=== PATIENT | female | born 1995 ===

== ENCOUNTER → 2020-04-02 13:21 | Outpatient (BNVA) | payer OTHER, SELFPAY | PROVIDERS: PCP Family Medicine; Referring Provider Family Medicine; Visit Provider Nurse Practitioner Family | DX: K21.9 Gastro-esophageal reflux disease without esophagitis (principal) | CPT/HCPCS: Q3014 ==

== ENCOUNTER 2020-04-30 10:47 | Outpatient (REF) | payer OTHER, SELFPAY ==
[2020-04-30 12:27] LABS: Alanine Aminotransferase 65 U/L (0-31); Albumin Level 4.5 g/dL (3.5-5.0); Alkaline Phosphatase 106 U/L (39-117); Anion Gap 12 (12-20); Aspartate Amino Transferase 35 U/L (5-31); Bilirubin Total 0.4 mg/dL (0.0-1.0); Blood Urea Nitrogen 11 mg/dL (9-16); Calcium 9.3 mg/dL (8.4-10.2); Carbon Dioxide 26 mmol/L (22-29); Chloride 106 mmol/L (96-108); Estimated Glomerular Filt Rate > 60; Glucose Random 151 mg/dL (60-115); Potassium 4.1 mmol/l (3.3-5.1); Sodium 140 mmol/L (135-145); Total Protein 7.8 g/dL (6.5-8.0)
[2020-04-30 12:37] LABS: TSH reflex Free T4 2.42 mIU/mL (0.32-4.0)
== END 2020-04-30 10:48 | disposition home or self-care (01) ==
LOC: HO.LAB 10:47
PROVIDERS: PCP Family Medicine; Visit Provider Nurse Practitioner Family
DX: K21.9 Gastro-esophageal reflux disease without esophagitis (principal); R73.03 Prediabetes
CPT/HCPCS: 80053; 84443; 99212; Q3014

== ENCOUNTER 2020-05-27 14:39 | Outpatient (REF) | payer OTHER, SELFPAY | END 2020-05-27 14:40 | disposition home or self-care (01) | LOC: HO.LNP 14:39 | PROVIDERS: Visit Provider Nurse Practitioner Family | DX: K21.9 Gastro-esophageal reflux disease without esophagitis (principal); A04.8 Other specified bacterial intestinal infections | CPT/HCPCS: 87338 ==

== ENCOUNTER → 2020-06-12 13:45 | Outpatient (BNVA) | payer OTHER, SELFPAY | PROVIDERS: PCP Family Medicine; Visit Provider Nurse Practitioner Family | DX: K21.9 Gastro-esophageal reflux disease without esophagitis (principal); A04.8 Other specified bacterial intestinal infections | CPT/HCPCS: Q3014 ==

== ENCOUNTER 2020-07-01 11:55 | Emergency (ER) | payer OTHER, SELFPAY ==
[2020-07-01 12:01] VITALS: BP 142/120; PULSE 92; RESP 20; TEMP 36.7; O2SAT 98
--- NOTE | 2020-07-01 12:13 | ED_ITS ---
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 Does report that got her flu vaccination 3 days ago unsure that is related or not. Otherwise no URI symptoms no recent new foods to drink beer last night otherwise no chest pain, dysphagia, shortness of breath. Onset (ago): hour(s) Radiation: non-radiation Severity: mild Quality: other (Feels scratchy and irritated) Pain Consistency: constant Relieving factors: none Exacerbating factors: none Treatments prior to arrival: none Related Data Home Medications Medication Instructions Recorded Confirmed bictegravir 50 mg-emtricitabine 1 tab PO DAILY 04/02/20 06/12/20 200 mg-tenofovir alafenam 25 mg tablet clonidine HCl 0.1 mg tablet 0.2 mg PO BEDTIME tab 04/02/20 06/12/20 fluoxetine 20 mg capsule 20 mg PO DAILY 04/02/20 06/12/20 hydroxyzine HCl 25 mg tablet 25 mg PO BEDTIME 04/02/20 06/12/20 spironolactone 50 mg tablet 50 mg PO DAILY 04/02/20 06/12/20 Previous Rx's Medication Instructions Recorded omeprazole 20 mg capsule,delayed 20 mg PO BID #60 cap 04/30/20 release sucralfate 1 gram tablet 1 g PO DAILY #30 tab 04/30/20 metronidazole 500 mg tablet 1,000 mg PO BID 14 Days #56 tab 06/03/20 ondansetron HCl 4 mg tablet 4 mg PO BID-TID PRN 14 Days #60 tab 06/03/20 tetracycline 500 mg capsule 500 mg PO Q12H 14 Days #28 cap 06/03/20 azithromycin [Zithromax Z-Murphy] 250 mg PO DAILY 5 Days #6 tab 07/01/20 prednisone 40 mg PO DAILY 5 Days #10 tab 07/01/20 Allergies Allergy/AdvReac Type Severity Reaction Status Date / Time No Known Allergies Allergy Verified 07/01/20 12:10 Review of Systems Review of Systems: Constitutional: No Weight loss, No Fever, No Chills, No Night Sweats, No Fatigue, No Malaise ENT/Mouth: No Hearing loss, No Ear Pain, No Nasal Congestion, No Sinus Pain, No Hoarseness, + sore throat, No Rhinorrhea, No Swallowing Difficulty Eyes: No Eye Pain, No Swelling, No Redness, No Foreign Body, No Discharge, No Vision Changes Cardiovascular: No Chest Pain, No SOB, No Dyspnea on Exertion, No Orthopnea, No Edema, No Palpitations Respiratory: No Cough, No Sputum, No Wheezing, No Smoke Exposure, No Dyspnea Gastrointestinal: No Nausea, No Vomiting, No Diarrhea, No Constipation, No abdominal Pain, No Hematochezia, No Melena Genitourinary: no irregular bleeding, No Dysuria, No Urinary Frequency, No Hematuria, No Urinary Incontinence, No Urgency, No Flank Pain, No Urinary Flow Changes, No Hesitancy Musculoskeletal: No joint pain, No Myalgias, No Joint Swelling Skin: No Skin Lesions, No rash Neuro: No Weakness, No Numbness, No Paresthesias, No Loss of Consciousness, No Dizziness, No Headache Psych: No Social Issues Heme/Lymph: No Bruising, No Bleeding,No Lymphadenopathy Endocrine: No Polyuria, No Polydipsia, No Temperature Intolerance Yes all other systems are reviewed and are negative [facility] Past Medical History Medical History Anxiety GERD (gastroesophageal reflux disease) Ulcer Surgical History Hx of appendectomy Family History Family History (Updated 06/12/20 @ 13:48 by Christina Bender) Mother Cancer Father Cancer Maternal Aunt Cancer Maternal Uncle Cancer Social History Social History (Updated 06/12/20 @ 13:50 by Christina Bender) Household Members: Other Alcohol intake: current Alcohol intake frequency: a few times a week Alcohol type: beer Smoking Status: Light tobacco smoker Smoked in Last 30 Days: Yes Use of substances other than those prescribed or required for medical reasons: No Substance Use Type: Marijuana Any prior treatment program specific to substance use: No Advance Directives: No Advance Directives Information Provided: No Current occupational status: student Physical Exam Vital Signs: Vital Signs: Last Vital Signs Temp 98.0 F 07/01/20 12:01 Pulse 89 07/01/20 12:23 Resp 18 07/01/20 12:23 BP 126/80 07/01/20 12:23 Pulse Ox 98 07/01/20 12:23 Body Mass Index 0.0 Reviewed Const: Other: From patient sitting up in no acute distress upon arrival Gen eral: cooperative and healthy appearing; No acute distress or intoxicated appearing Nutritional Appearance: average body habitus Orientation/consciousness: patient oriented x3 HENMT: Head: Yes normal to inspection Ears: hearing grossly normal bilaterally General nose exam: Normal external nose present Face and sinus: Yes normal facial exam, No sinuses nontender and Yes face symmetric Mouth: lip normal, tongue normal, Normal salivary glands and ducts present, breath no malodorous, no muffled voice, normal oral mucosae, no trismus and other Teeth and gingiva: dentition normal Throat: Yes posterior oropharynx normal, Yes tonsils normal, Yes uvula midline (Slightly edematous and erythematous), No abnormal tonsil and No peritonsillar mass Eyes: General: appearance normal, both eyes and all related structures Visual Peace: normal visual peace by confrontation Neck: Neck: Yes normal visual inspection, No positive Brudzinski's sign, No positive Kernig's sign and No tender Thyroid: Thyroid normal Chest: Chest palpation & inspection: normal inspection of the chest Resp: Effort & Inspection: normal respiratory effort Auscultation: clear to auscultation bilaterally Cardio: Jugular venous distension: no JVD GI: Inspection: Yes normal to inspection Percussion: Yes normal to percussion Auscultation: normal bowel sounds : General: Yes no CVA tenderness Back/Spine/Pelvis: Back: no CVA tenderness Skin: General skin exam: no rashes or lesions noted Neuro: General: patient oriented x3 Extrem: General: Yes normal to inspection Course Course Course Narrative: Slightly improved after Benadryl and Solu-Medrol. No airway compromise. Speaking in clear sentences. No difficulty with swallowing. Strep as well as flu RSV and COVID negative. Given the erythema and swelling inflammatory versus infectious. Will start on Z-Murphy and prednisone with clear return follow-up instructions. Verbalized understanding. Comfortable plan stable for discharge. Medical Decision Making Lab Data Labs: Lab Results 07/01/20 Range/Units 12:32 Coronavirus (PCR) NEGATIVE (Negative) Influenza Type A (PCR) NEGATIVE (Negative) Influenza Type B (PCR) NEGATIVE (Negative) RSV RNA Qual (PCR) NEGATIVE (Negative) Discharge Plan Discharge Clinical Impression: Uvulitis Patient Disposition: Home, Self-Care Instructions: Uvulitis (ED) Additional Instructions: Uvulitis Uvulitis is inflammation of the uvula. This is the small tongue-shaped tissue that hangs from the top of the back part of the mouth. Uvulitis is usually associated with inflammation of other mouth parts, such as the palate, tonsils, or throat (pharynx). Causes Uvulitis is mainly caused by an infection with streptococcus bacteria. Other causes are: An injury to the back of the throat An allergic reaction from pollen, dust, pet dander, or foods such as peanuts or eggs Inhaling or swallowing certain chemicals Smoking Injury can occur due to: Endoscopy - test that involves inserting a tube through the mouth into the esophagus to view the lining of the esophagus and stomach Surgery such as tonsil removal Damage due to acid reflux Your symptoms are most consistent with either infectious or allergic reaction as a cause. For this reason will start you on antibiotics. Will start on steroid to help with inflammation. Please return if any concerns or worsening symptoms including scratchy throat or any difficulty swallowing, difficulty breathing, shortness of breath, chest pain. Otherwise follow-up with her primary care doctor in the next 3-5 days Thank you Prescriptions: New azithromycin [Zithromax Z-Murphy] 250 mg tablet 250 mg PO DAILY 5 Days Qty: 6 RF: 0 prednisone 20 mg tablet 40 mg PO DAILY 5 Days Qty: 10 RF: 0 No Action tetracycline 500 mg capsule 500 mg PO Q12H 14 Days Qty: 28 RF: 0 metronidazole [Flagyl] 500 mg tablet 1,000 mg PO BID 14 Days Qty: 56 RF: 0 ondansetron HCl [Zofran] 4 mg tablet 4 mg PO BID-TID PRN (Reason: nausea and vomiting) 14 Days Qty: 60 RF: 0 omeprazole 20 mg capsule,delayed release(DR/EC) 20 mg PO BID Qty: 60 RF: 3 sucralfate 1 gram tablet 1 g PO DAILY Qty: 30 RF: 3 Biktarvy 50-200-25 mg tablet 1 tab PO DAILY RF: 0 clonidine HCl 0.1 mg tablet 0.2 mg PO BEDTIME RF: 0 spironolactone 50 mg tablet 50 mg PO DAILY RF: 0 hydroxyzine HCl 25 mg tablet 25 mg PO BEDTIME RF: 0 fluoxetine 20 mg capsule 20 mg PO DAILY RF: 0 Referrals: Yashira Mojica MD [Primary Care Provider] - 3 days Stand Alone Forms: Work/School Release Interventions: ED Discharge Assessment Last Done: 07/01/20 14:28 Discharge Date/Time: 07/01/20 14:35
[2020-07-01 12:23] VITALS: BP 126/80; PULSE 89; RESP 18; O2SAT 98
[2020-07-01] MEDS: methylPREDNISolone Sod Succ/PF 125 MG/2 ML VIAL IVPUSH (12:33)
[2020-07-01] MEDS: diphenhydrAMINE HCL 50 MG/ML VIAL 25 MG IVPUSH (12:33)
[2020-07-01] MEDS: 0.9 % Sodium Chloride 1,000 ML 999 ML IV (12:33)
[2020-07-01 13:36] LABS: Influenza A PCR NEGATIVE (Negative); Influenza B PCR NEGATIVE (Negative); Resp Syncy Virus RNA Qual PCR NEGATIVE (Negative); SARS COV2 PCR INHOUSE NEGATIVE (Negative)
== END 2020-07-01 14:35 | disposition home or self-care (01) ==
PROVIDERS: Nurse Practitioner Primary Care; Emergency Provider Emergency Medicine; PCP Family Medicine
DX: K12.2 Cellulitis and abscess of mouth (principal); Z20.822 Contact with and (suspected) exposure to COVID-19; K21.9 Gastro-esophageal reflux disease without esophagitis; F17.210 Nicotine dependence, cigarettes, uncomplicated; F12.90 Cannabis use, unspecified, uncomplicated
CPT/HCPCS: 0241U; 36415; 87071; 87147; 87880; 96361; 96374; 96375; 99284; J1200; J2930

== ENCOUNTER 2020-10-01 11:22 | Outpatient (REF) | payer OTHER, SELFPAY ==
--- NOTE | 2020-10-01 11:31 | ECG_ITS ---
Test Reason : PREPROC EXAM Blood Pressure : / mmHG Vent. Rate : 082 BPM Atrial Rate : 082 BPM P-R Int : 156 ms QRS Dur : 088 ms QT Int : 364 ms P-R-T Axes : 035 007 065 degrees QTc Int : 425 ms Normal sinus rhythm Nonspecific T wave abnormality Abnormal ECG No previous ECGs available Referred By: Jailene Castro Electronically Signed By:Tobin Miller
[2020-10-01 12:03] LABS: Hematocrit 46.7 % (37-47); Hemoglobin 15.7 g/dl (12.0-16.0); Mean Corpuscular HGB Conc 33.6 g/dl (31.0-35.0); Mean Corpuscular Hemoglobin 29.5 pg (27.0-33.0); Mean Corpuscular Volume 87.6 fL (80-98); Mean Platelet Volume 10.7 fL (9.4-12.3); Platelet Count 266 X10*3/uL (160-400); Red Blood Count 5.33 X10*6/uL (4.20-5.50); White Blood Count 8.2 X10*3/uL (4.8-10.8)
[2020-10-01 12:05] LABS: Prothrombin Time 12.3 SEC (10.8-13.0)
[2020-10-01 12:08] LABS: Partial Thromboplastin Time 37.3 SEC (24.1-38.0)
[2020-10-01 12:22] LABS: Anion Gap 13 (12-20); Blood Urea Nitrogen 8 mg/dL (9-16); Carbon Dioxide 24 mmol/L (22-29); Chloride 105 mmol/L (96-108); Estimated Glomerular Filt Rate > 60; Glucose Random 139 mg/dL (60-115); Potassium 4.2 mmol/L (3.3-5.1); Sodium 138 mmol/L (135-145)
== END 2020-10-01 11:23 | disposition home or self-care (01) ==
LOC: HO.LAB 11:22
PROVIDERS: Absent Provider Family Medicine; PCP Family Medicine; Visit Provider Family Medicine
DX: Z01.818 Encounter for other preprocedural examination (principal)
CPT/HCPCS: 36415; 80048; 85027; 85610; 85730; 93005

== ENCOUNTER 2021-04-29 09:59 | Emergency (ER) | payer OTHER, SELFPAY ==
[2021-04-29 11:40] VITALS: BP 132/69; PULSE 85; RESP 18; TEMP 36.4; O2SAT 99; BMI 34.1
--- NOTE | 2021-04-29 13:54 | ED_ITS ---
HPI - General Adult General Chief complaint: Allergic Reaction Stated complaint: allergic reaction Time Seen by Provider: 04/29/21 13:52 History of Present Illness HPI narrative: Patient complains of itchy rash over his body for 2 days, not sure what caused it, he has had similar symptoms in the past that resolved on their own, no difficulty breathing no throat swelling no difficulty swallowing Related Data Home Medications Medication Instructions Recorded Confirmed bictegravir 50 mg-emtricitabine 1 tab PO DAILY 04/02/20 06/12/20 200 mg-tenofovir alafenam 25 mg tablet (Biktarvy) clonidine HCl 0.1 mg tablet 0.2 mg PO BEDTIME tab 04/02/20 06/12/20 fluoxetine 20 mg capsule 20 mg PO DAILY 04/02/20 06/12/20 hydroxyzine HCl 25 mg tablet 25 mg PO BEDTIME 04/02/20 06/12/20 spironolactone 50 mg tablet 50 mg PO DAILY 04/02/20 06/12/20 Previous Rx's Medication Instructions Recorded omeprazole 20 mg capsule,delayed 20 mg PO BID #60 cap 04/30/20 release sucralfate 1 gram tablet 1 g PO DAILY #30 tab 04/30/20 metronidazole 500 mg tablet 1,000 mg PO BID 14 Days #56 tab 06/03/20 (Flagyl) ondansetron HCl 4 mg tablet 4 mg PO BID-TID PRN 14 Days #60 tab 06/03/20 (Zofran) tetracycline 500 mg capsule 500 mg PO Q12H 14 Days #28 cap 06/03/20 azithromycin 250 mg tablet 250 mg PO DAILY 5 Days #6 tab 07/01/20 (Zithromax Z-Murphy) prednisone 20 mg tablet 40 mg PO DAILY 5 Days #10 tab 07/01/20 cetirizine 10 mg tablet 10 mg PO DAILY PRN #14 tab 04/29/21 famotidine 20 mg tablet (Pepcid) 20 mg PO DAILY #7 tab 04/29/21 hydroxyzine HCl 25 mg tablet 25 mg PO BEDTIME PRN #10 tab 04/29/21 prednisone 20 mg tablet 60 mg PO DAILY 4 Days #12 tab 04/29/21 Allergies Allergy/AdvReac Type Severity Reaction Status Date / Time No Known Allergies Allergy Verified 07/01/20 12:10 Review of Systems Review of Systems: Positive for rash Negatives are no fever no chills no dizziness no headache no neck pain no sore throat no difficulty breathing or swallowing no shortness of breath no chest pain no joint swelling or pain Yes all other systems are reviewed and are negative [facility] Past Medical History Source: nursing notes reviewed Medical History Anxiety GERD (gastroesophageal reflux disease) Ulcer Surgical History Hx of appendectomy Family History Family History (Updated 06/12/20 @ 13:48 by CAYDEN Flores) Mother Cancer Father Cancer Maternal Aunt Cancer Maternal Uncle Cancer Social History Social History (Updated 06/12/20 @ 13:50 by CAYDEN Flores) Household Members: Other 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 Alcohol intake: current Alcohol intake frequency: a few times a week Alcohol type: beer Substance Use Type: Marijuana Advance Directives: No Advance Directives Information Provided: Yes Current occupational status: student Physical Exam Vital Signs: Vital Signs: Last Vital Signs Temp 97.6 F 04/29/21 11:40 Pulse 85 04/29/21 11:40 Resp 18 04/29/21 11:40 BP 132/69 04/29/21 11:40 Pulse Ox 99 04/29/21 11:40 BMI result Body Mass Index 34.1 General appearance no acute distress The eyes no redness or discharge The sinuses are not congested The pharynx is clear with no swelling no redness or exudate Neck is supple Chest clear to auscultation bilateral The skin has a diffuse urticarial rash Extremities full range of motion x4 no joint pain or swelling Course Course Course Narrative: Patient with very itchy hives but no other complaint is treated for hives and discharged Discharge Plan Discharge Clinical Impression: Urticaria Patient Disposition: Home, Self-Care Additional Instructions: We are treating with steroids and antihistamines which usually relieve symptoms within 24 hours Follow with primary doctor Return any time any worse condition or any concerns Prescriptions: New cetirizine 10 mg tablet 10 mg PO DAILY PRN (Reason: Itch and rash) Qty: 14 RF: 0 prednisone 20 mg tablet 60 mg PO DAILY 4 Days Qty: 12 RF: 0 famotidine [Pepcid] 20 mg tablet 20 mg PO DAILY Qty: 7 RF: 0 hydroxyzine HCl 25 mg tablet 25 mg PO BEDTIME PRN (Reason: itching) Qty: 10 RF: 0 No Action tetracycline 500 mg capsule 500 mg PO Q12H 14 Days Qty: 28 RF: 0 metronidazole [Flagyl] 500 mg tablet 1,000 mg PO BID 14 Days Qty: 56 RF: 0 ondansetron HCl [Zofran] 4 mg tablet 4 mg PO BID-TID PRN (Reason: nausea and vomiting) 14 Days Qty: 60 RF: 0 azithromycin [Zithromax Z-Murphy] 250 mg tablet 250 mg PO DAILY 5 Days Qty: 6 RF: 0 prednisone 20 mg tablet 40 mg PO DAILY 5 Days Qty: 10 RF: 0 omeprazole 20 mg capsule,delayed release(DR/EC) 20 mg PO BID Qty: 60 RF: 3 sucralfate 1 gram tablet 1 g PO DAILY Qty: 30 RF: 3 Biktarvy 50-200-25 mg tablet 1 tab PO DAILY RF: 0 clonidine HCl 0.1 mg tablet 0.2 mg PO BEDTIME RF: 0 spironolactone 50 mg tablet 50 mg PO DAILY RF: 0 hydroxyzine HCl 25 mg tablet 25 mg PO BEDTIME RF: 0 fluoxetine 20 mg capsule 20 mg PO DAILY RF: 0 Interventions: ED Discharge Assessment Last Done: 04/29/21 14:42 Discharge Date/Time: 04/29/21 14:43
== END 2021-04-29 14:43 | disposition home or self-care (01) ==
PROVIDERS: Emergency Provider Emergency Medicine; PCP Family Medicine
DX: L50.9 Urticaria, unspecified (principal)
CPT/HCPCS: 99283

== ENCOUNTER 2021-05-29 19:43 | Emergency (ER) | payer MEDICAID, OTHER, SELFPAY ==
--- NOTE | 2021-05-29 | ECG_ITS ---
Test Reason : PALPITATIONS Blood Pressure : / mmHG Vent. Rate : 121 BPM Atrial Rate : 121 BPM P-R Int : 164 ms QRS Dur : 088 ms QT Int : 314 ms P-R-T Axes : 055 023 052 degrees QTc Int : 445 ms Sinus tachycardia Otherwise normal ECG When compared with ECG of 01-OCT-2020 11:39, Nonspecific T wave abnormality no longer evident in Lateral leads Referred By: Generic ED Physician Electronically Signed By:DIEGO GALLARDO MD
[2021-05-29 19:50] VITALS: BP 155/98; PULSE 132; RESP 20; TEMP 36.4; O2SAT 100; BMI 28.1
[2021-05-29 19:59] VITALS: PULSE 112
--- NOTE | 2021-05-29 23:41 | ED_ITS ---
HPI - Psych General Chief Complaint: Arrhythmia/Palpitations Stated Complaint: chest pain ,shaking,fatigue Time Seen by Provider: 05/29/21 22:36 Source: patient Mode of arrival: ambulatory Limitations: no limitations History of Present Illness complaint: other (was given crystal meth by acquaintance when she thought it was hookah) Onset (ago): hour(s) (6pm) Duration: other (it is improving) History of same: No (has never done any drugs uses medical marijuana at night to sleep) Relieving factors: other (time) Exacerbating factors: none Context: other (went to a [facility] noted people were smoking marijuana and a hookah she initially declined the hookah but was offered it again, she smoked one time and immediately felt off she was then told it was crystal meth) Associated psychiatric symptoms: none Associated symptoms: other (shakiness, tachycardia, palpitations) Treatments prior to arrival: none Related Data Home Medications Medication Instructions Recorded Confirmed bictegravir 50 mg-emtricitabine 1 tab PO DAILY 04/02/20 06/12/20 200 mg-tenofovir alafenam 25 mg tablet (Biktarvy) clonidine HCl 0.1 mg tablet 0.2 mg PO BEDTIME tab 04/02/20 06/12/20 fluoxetine 20 mg capsule 20 mg PO DAILY 04/02/20 06/12/20 hydroxyzine HCl 25 mg tablet 25 mg PO BEDTIME 04/02/20 06/12/20 spironolactone 50 mg tablet 50 mg PO DAILY 04/02/20 06/12/20 Previous Rx's Medication Instructions Recorded omeprazole 20 mg capsule,delayed 20 mg PO BID #60 cap 04/30/20 release sucralfate 1 gram tablet 1 g PO DAILY #30 tab 04/30/20 metronidazole 500 mg tablet 1,000 mg PO BID 14 Days #56 tab 06/03/20 (Flagyl) ondansetron HCl 4 mg tablet 4 mg PO BID-TID PRN 14 Days #60 tab 06/03/20 (Zofran) tetracycline 500 mg capsule 500 mg PO Q12H 14 Days #28 cap 06/03/20 azithromycin 250 mg tablet 250 mg PO DAILY 5 Days #6 tab 07/01/20 (Zithromax Z-Murphy) prednisone 20 mg tablet 40 mg PO DAILY 5 Days #10 tab 07/01/20 cetirizine 10 mg tablet 10 mg PO DAILY PRN #14 tab 04/29/21 famotidine 20 mg tablet (Pepcid) 20 mg PO DAILY #7 tab 04/29/21 hydroxyzine HCl 25 mg tablet 25 mg PO BEDTIME PRN #10 tab 04/29/21 prednisone 20 mg tablet 60 mg PO DAILY 4 Days #12 tab 04/29/21 Allergies Allergy/AdvReac Type Severity Reaction Status Date / Time No Known Allergies Allergy Verified 05/29/21 19:55 Review of Systems Verdana 4l Review of Systems: Verdana 4d Verdana 4d Constitutional : No Fever, No Chills ENT/Mouth : No sore throat, No Rhinorrhea, No Swallowing Difficulty Eyes: No Eye Pain, No Swelling, No Redness Cardiovascular : No Chest Pain, no SOB, No Orthopnea, no Edema, pos palpitations RespiratoryRespiratory : No Cough, No Sputum, No Wheezing, no dyspnea Gastrointestinal : No Nausea, No Vomiting, No Diarrhea, No abdominal Pain, No Hematochezia, No Melena Genitourinary : No Dysuria, No Urinary Frequency, No Hematuria Musculoskeletal : No joint pain, No Myalgias Skin : No Skin Lesions, No rash Neuro : No Weakness, No Numbness, No Dizziness, No Headache Psych : pos Anxiety/Panic, No Depression Heme/Lymph: No Bruising, No Lymphadenopathy Endocrine : No Polyuria, No Polydipsia All other systems reviewed and are negative [facility] Past Medical History 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 Oriented X3. No acute distress. Eyes: Pupils equal, round and reactive to light. ENT: Pharynx normal. Neck: Normal inspection. Neck supple. CVS: tachycardic heart rate and rhythm. Pulses normal. Respiratory: No respiratory distress. Breath sounds normal. Abdomen: Soft and nontender. Skin: Skin warm and dry. Normal skin color. Normal skin turgor. Extremities: No lower extremity edema. No calf ttp Neuro: Oriented X 3. No motor deficit. No sensory deficit. Course Course Course Narrative: VS improved feels better stable for DC MDM - Psych MDM Narrative Medical decision making narrative: 26 yo female with hx of GERD, anxiety was at a [facility] and asked to smoke hookah and believed it was marijuana she immediately felt off then asked what it was and was told it was crystal meth. She has no chest pain at this time. But does have tachycardia no diaphoresis or signs of hyperreflexia. Will obtain labs, EKG, hydrate and give IV ativan. GCS 15 and calm / appropriate. Lab Data Result diagrams: 05/30/21 00:23 05/30/21 00:23 Labs: Lab Results 05/30/21 05/30/21 Range/Units 00:23 00:23 WBC 10.7 (4.8-10.8) X10*3/uL RBC 4.98 (4.20-5.50) X10*6/uL Hgb 14.7 (12.0-16.0) g/dl Hct 43.1 (37.0-47.0) % MCV 86.5 (80.0-98.0) fL MCH 29.5 (27.0-33.0) pg MCHC 34.1 (31.0-35.0) g/dl RDW 13.2 (11.0-16.0) % Plt Count 273 (160-400) X10*3/uL MPV 9.7 (9.4-12.3) fL Immature Gran % (Auto) 0.3 (0.0-0.4) % Neut % (Auto) 61.5 (45-73) % Lymph % (Auto) 31.3 (20-40) % Grainger % (Auto) 6.4 (2-11) % Eos % (Auto) 0.3 (0-4) % Baso % (Auto) 0.2 (0-2) % Lymph # (Auto) 3.4 (1.2-4.9) X10*3/uL Grainger # (Auto) 0.7 (0.1-1.2) X10*3/uL Eos # (Auto) 0.0 (0.0-0.4) X10*3/uL Baso # (Auto) 0.0 (0.0-0.2) X10*3/uL Abs Immat Gran (auto) 0.03 (0.00-0.03) X10*3/uL Absolute Neuts (auto) 6.6 (2.0-8.3) x10*3/uL Absolute Nucleated RBC 0.000 (0.0-0.012) X10*3/uL Nucleated RBC % (auto) 0.0 (0.0-0.2) /100WBC Sodium 140 (135-145) mmol/L Potassium 3.9 (3.3-5.1) mmol/L Chloride 106 (96-108) mmol/L Carbon Dioxide 23 (22-29) mmol/L Anion Gap 15 (12-20) BUN 12 (9-16) mg/dL Creatinine 1.16 (0.5-1.4) mg/dL Estim Creat Clear Calc 80.8 Estimated GFR 56 Random Glucose 116 H (60-115) mg/dL Calcium 10.5 H (8.4-10.2) mg/dL Magnesium 2.3 (1.6-2.6) mg/dL ECG Data Attestation: I personally reviewed and interpreted this ECG as follows: ECG interpretation date: 05/30/21 ECG interpretation time: 00:25 Interpretation: Rate: 121 Rhythm: sinus tachycardia Plover: normal Normal P waves. Normal RESHMA. RBBB ST T wave : normal no XUAN qTC: normal prior studies: no acute ischemia The study has been interpreted contemporaneously by me. . Discharge Plan Discharge Clinical Impression: Acute drug intoxication Patient Disposition: Home, Self-Care Instructions: Adult Overdose (ED) Additional Instructions: return to ED for any worsening symptoms or concerns Prescriptions: No Action tetracycline 500 mg capsule 500 mg PO Q12H 14 Days Qty: 28 0RF metronidazole [Flagyl] 500 mg tablet 1,000 mg PO BID 14 Days Qty: 56 0RF ondansetron HCl [Zofran] 4 mg tablet 4 mg PO BID-TID PRN (Reason: nausea and vomiting) 14 Days Qty: 60 0RF azithromycin [Zithromax Z-Murphy] 250 mg tablet 250 mg PO DAILY 5 Days Qty: 6 0RF prednisone 20 mg tablet 40 mg PO DAILY 5 Days Qty: 10 0RF cetirizine 10 mg tablet 10 mg PO DAILY PRN (Reason: Itch and rash) Qty: 14 0RF prednisone 20 mg tablet 60 mg PO DAILY 4 Days Qty: 12 0RF famotidine [Pepcid] 20 mg tablet 20 mg PO DAILY Qty: 7 0RF hydroxyzine HCl 25 mg tablet 25 mg PO BEDTIME PRN (Reason: itching) Qty: 10 0RF omeprazole 20 mg capsule,delayed release(DR/EC) 20 mg PO BID Qty: 60 3RF sucralfate 1 gram tablet 1 g PO DAILY Qty: 30 3RF Rx Instructions: Please take daily at noon Biktarvy 50-200-25 mg tablet 1 tab PO DAILY 0RF clonidine HCl 0.1 mg tablet 0.2 mg PO BEDTIME 0RF spironolactone 50 mg tablet 50 mg PO DAILY 0RF hydroxyzine HCl 25 mg tablet 25 mg PO BEDTIME 0RF fluoxetine 20 mg capsule 20 mg PO DAILY 0RF Print Language: French
[2021-05-30] MEDS: 0.9 % Sodium Chloride 1,000 ML 999 ML IVCONT (00:24)
[2021-05-30] MEDS: LORazepam 2 MG/ML VIAL 1 MG IVPUSH (00:26)
[2021-05-30 00:28] LABS: MANUAL DIFF FLAG NO
[2021-05-30 00:30] LABS: Basophils Percent Auto 0.2 % (0-2); Eosinophils Percent Auto 0.3 % (0-4); Hematocrit 43.1 % (37.0-47.0); Hemoglobin 14.7 g/dl (12.0-16.0); Imm Gran Abs Auto 0.03 X10*3/uL (0.00-0.03); Imm Gran Pct Auto 0.3 % (0.0-0.4); Lymphocytes Absolute Auto 3.4 X10*3/uL (1.2-4.9); Lymphocytes Percent Auto 31.3 % (20-40); Mean Corpuscular HGB Conc 34.1 g/dl (31.0-35.0); Mean Corpuscular Hemoglobin 29.5 pg (27.0-33.0); Mean Corpuscular Volume 86.5 fL (80.0-98.0); Mean Platelet Volume 9.7 fL (9.4-12.3); Monocytes Absolute Auto 0.7 X10*3/uL (0.1-1.2); Monocytes Percent Auto 6.4 % (2-11); Neutrophils Absolute Auto 6.6 x10*3/uL (2.0-8.3); Neutrophils Percent Auto 61.5 % (45-73); Platelet Count 273 X10*3/uL (160-400); Red Blood Count 4.98 X10*6/uL (4.20-5.50); Red Cell Distribution Width 13.2 % (11.0-16.0); White Blood Count 10.7 X10*3/uL (4.8-10.8)
[2021-05-30 00:31] VITALS: BP 151/88; PULSE 119; RESP 24; TEMP 36.6; O2SAT 100
[2021-05-30 00:49] LABS: Anion Gap 15 (12-20); Blood Urea Nitrogen 12 mg/dL (9-16); Calcium 10.5 mg/dL (8.4-10.2); Carbon Dioxide 23 mmol/L (22-29); Chloride 106 mmol/L (96-108); Creatinine Clr Calc Pharmacy 80.8; Estimated Glomerular Filt Rate 56; Glucose Random 116 mg/dL (60-115); Magnesium 2.3 mg/dL (1.6-2.6); Potassium 3.9 mmol/L (3.3-5.1); Sodium 140 mmol/L (135-145)
[2021-05-30 02:09] VITALS: PULSE 105; RESP 22; O2SAT 100
== END 2021-05-30 02:55 | disposition home or self-care (01) ==
PROVIDERS: Emergency Provider Emergency Medicine; PCP Family Medicine
DX: F14.129 Cocaine abuse with intoxication, unspecified (principal); I49.9 Cardiac arrhythmia, unspecified; R00.2 Palpitations; F12.90 Cannabis use, unspecified, uncomplicated; R40.2410 Glasgow coma scale score 13-15, unspecified time; Z71.51 Drug abuse counseling and surveillance of drug abuser; Z79.899 Other long term (current) drug therapy
CPT/HCPCS: 36415; 80048; 83735; 85025; 93005; 96361; 96374; 99284; J2060

== ENCOUNTER 2021-05-30 09:06 | Emergency (ER) | payer MEDICAID, OTHER, SELFPAY ==
--- NOTE | ~2021-05-30 | XR_ITS ---
EXAMINATION: XR CHEST CLINICAL INFORMATION: Chest pain COMPARISON: None TECHNIQUE: Frontal view of the chest was obtained. FINDINGS: Cardiac silhouette is normal in size. The lungs are mildly hypoinflated with mild asymmetric elevation of the right hemidiaphragm. There is no lobar consolidation. No pleural effusion or pneumothorax. No gross osseous abnormality. XR/XR chest 1V IMPRESSION: Hypoinflated lungs without acute pulmonary pathology.
[2021-05-30 09:09] VITALS: BP 150/90; PULSE 96; O2SAT 98
[2021-05-30 09:20] VITALS: BP 147/91; PULSE 98; RESP 18; O2SAT 100; BMI 34.4
--- NOTE | 2021-05-30 09:34 | ED_ITS ---
HPI - General Adult General Chief complaint: ETOH/Substance Use Stated complaint: substance use Time Seen by Provider: 05/30/21 09:32 Source: patient, RN notes reviewed and paraprofessional interpreter Mode of arrival: ambulatory Limitations: language barrier (paraprofessional interpreter used) History of Present Illness HPI narrative: Pt complaining of not feeling well after using marijauna yesterday. Pt thinks that there was crystal meth as well. Pt seen last night for same and discharge a couple of hours ago. Pt denies any other use of drugs, etoh since visit yesterday. Pt said she felt better when she was discharged this morning, but is now felling shaky, nauseas with some chestpain, also complaining of numbness in both hands which started sometime this morning. Pt quite anxious. Radiation: non-radiation Severity: moderate Treatments prior to arrival: none Related Data Home Medications Medication Instructions Recorded Confirmed bictegravir 50 mg-emtricitabine 1 tab PO DAILY 04/02/20 06/12/20 200 mg-tenofovir alafenam 25 mg tablet (Biktarvy) clonidine HCl 0.1 mg tablet 0.2 mg PO BEDTIME tab 04/02/20 06/12/20 fluoxetine 20 mg capsule 20 mg PO DAILY 04/02/20 06/12/20 hydroxyzine HCl 25 mg tablet 25 mg PO BEDTIME 04/02/20 06/12/20 spironolactone 50 mg tablet 50 mg PO DAILY 04/02/20 06/12/20 Previous Rx's Medication Instructions Recorded omeprazole 20 mg capsule,delayed 20 mg PO BID #60 cap 04/30/20 release sucralfate 1 gram tablet 1 g PO DAILY #30 tab 04/30/20 metronidazole 500 mg tablet 1,000 mg PO BID 14 Days #56 tab 06/03/20 (Flagyl) ondansetron HCl 4 mg tablet 4 mg PO BID-TID PRN 14 Days #60 tab 06/03/20 (Zofran) tetracycline 500 mg capsule 500 mg PO Q12H 14 Days #28 cap 06/03/20 azithromycin 250 mg tablet 250 mg PO DAILY 5 Days #6 tab 07/01/20 (Zithromax Z-Murphy) prednisone 20 mg tablet 40 mg PO DAILY 5 Days #10 tab 07/01/20 cetirizine 10 mg tablet 10 mg PO DAILY PRN #14 tab 04/29/21 famotidine 20 mg tablet (Pepcid) 20 mg PO DAILY #7 tab 04/29/21 hydroxyzine HCl 25 mg tablet 25 mg PO BEDTIME PRN #10 tab 04/29/21 prednisone 20 mg tablet 60 mg PO DAILY 4 Days #12 tab 04/29/21 lorazepam 1 mg tablet (Ativan) 1 mg PO BID PRN #4 tab 05/30/21 Allergies Allergy/AdvReac Type Severity Reaction Status Date / Time No Known Allergies Allergy Verified 05/29/21 19:55 Review of Systems Verdana 4l Review of Systems: Verdana 4d Verdana 4d Constitutional : No trauma, No Weight loss, No Fever, No Chills, ENT/Mouth : No Hearing loss, No Ear Pain, No Nasal Congestion, No Sinus Pain, No Hoarseness, No sore throat, No Rhinorrhea, No Swallowing Difficulty Cardiovascular : mild ChestChest Pain, No SOB Respiratory : No Cough, No Dyspnea Gastrointestinal : + Nausea, No Vomiting, No Diarrhea, No abdominal Pain, No Hematochezia, No Melena Genitourinary : No Dysuria, No Urinary Frequency, No Hematuria, No Urinary or Bowel Incontinence/retention? Musculoskeletal : no Back pain, No neck pain, No joint stiffness, No joint swelling Skin : No Skin Lesions, No rash or signs of infection Neuro : No Weakness, No radiation, mild Numbness in bilat hands, No Paresthesias, No headache, no loss of bowel or bladder incontinence, No Focal weakness Denies drug or etoh since last ED visit Psych : No SI/HI/thoughts of self injury Yes all other systems are reviewed and are negative [facility] Past Medical History Attestation statement: The following information was validated with the patient. 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 Alcohol intake: current Alcohol intake frequency: a few times a week Alcohol type: beer Substance Use Type: Marijuana Advance Directives: No Advance Directives Information Provided: No Current occupational status: student Physical Exam Verdana 4l Vital Signs: Verdana 4d Verdana 4d Vital Signs: Verdana 4d Verdana 4Bd Last Vital Signs Verdana 4d Slab Puller New 4d Tu New 4d Temp 98.2 F 05/30/21 11:55 Slab Puller New 4d Pulse 86 05/30/21 11:55 Slab Puller New 4d Resp 15 05/30/21 11:55 BP 136/81 05/30/21 11:55 Pulse Ox 100 05/30/21 11:55 BMI result Body Mass Index 34.4 vital signs have been reviewed as normal and appeared to be correct.? ? Heart rate normal.? Respiration rate normal.? Temperature normal.? Oxygen saturation normal. Appearance: Alert. Oriented X3. No acute distress, mildly anxious Head: Normal external exam. Normocephalic. Atraumatic.? Eyes: PERRLA. EOMI. mild conjunctival erythema. Eyelids normal. ? ENT: EAC normal. Moist mucous membranes. ? No trismus noted.? No drooling noted.? No muffled voice noted. Neck: Normal inspection. Neck supple. Normal ROM. No adenopathy. No meningeal signs. No neck mass noted. CVS: Normal heart rate and rhythm. Heart sound normal. No murmurs noted. Respiratory: No respiratory distress. Painless inspiration. Breath sounds normal. No wheezes/rales/rhonchi noted. Chest nontender. ? No accessory muscle usage noted or decreased air movement noted. Abdomen: Soft and nontender. Bowel sounds normal in all 4 quadrants. No distention noted.? No organomegaly noted.? No visible injury noted. Back: ?No CVA tenderness.? Full range of motion noted. Skin: Skin warm and dry.? Normal skin color.? Normal skin turgor. No rashes/lesions/lacerations noted. Extremities: No lower extremity edema. ? Extremities exhibit normal range of motion.?Livestock Buyer strength equal bilat Extremities nontender. Normal gait Neuro: Oriented X 3.? No motor deficit noted. No sensory deficit noted. PSyche: Pt appears anxious. Pt follows commans, GCS 15 Course Reevaluation(s) Reevaluation #1: PT is calmer. Vital signs stable. Reviewed labs, cxr, ekg with pt. Discharge pending urine drug screen. Pt states able to urinate now. Time: 11:42 Reevaluation #2: Pt appears calm, alert, oriented x 3. No anxiety. Lab results and perscriptions discussed with patient. Pt discharged to home. Time: 12:30 Medical Decision Making Lab Data Lab results reviewed: Yes I reviewed the patient's lab results. Result diagrams: 05/30/21 10:15 05/30/21 10:15 Labs: Lab Results 05/30/21 05/30/21 05/30/21 Range/Units 10:15 10:15 10:15 WBC 9.2 (4.8-10.8) X10*3/uL RBC 5.37 (4.20-5.50) X10*6/uL Hgb 15.7 (12.0-16.0) g/dl Hct 45.5 (37.0-47.0) % MCV 84.7 (80.0-98.0) fL MCH 29.2 (27.0-33.0) pg MCHC 34.5 (31.0-35.0) g/dl RDW 13.0 (11.0-16.0) % Plt Count 299 (160-400) X10*3/uL MPV 9.8 (9.4-12.3) fL Immature Gran % (Auto) 0.3 (0.0-0.4) % Neut % (Auto) 61.7 (45-73) % Lymph % (Auto) 30.0 (20-40) % Hamblen % (Auto) 7.5 (2-11) % Eos % (Auto) 0.3 (0-4) % Baso % (Auto) 0.2 (0-2) % Lymph # (Auto) 2.8 (1.2-4.9) X10*3/uL Hamblen # (Auto) 0.7 (0.1-1.2) X10*3/uL Eos # (Auto) 0.0 (0.0-0.4) X10*3/uL Baso # (Auto) 0.0 (0.0-0.2) X10*3/uL Abs Immat Gran (auto) 0.03 (0.00-0.03) X10*3/uL Absolute Neuts (auto) 5.7 (2.0-8.3) x10*3/uL Absolute Nucleated RBC 0.000 (0.0-0.012) X10*3/uL Nucleated RBC % (auto) 0.0 (0.0-0.2) /100WBC Sodium 139 (135-145) mmol/L Potassium 3.8 (3.3-5.1) mmol/L Chloride 108 (96-108) mmol/L Carbon Dioxide 21 L (22-29) mmol/L Anion Gap 14 (12-20) BUN 10 (9-16) mg/dL Creatinine 1.07 (0.5-1.4) mg/dL Estim Creat Clear Calc 96.6 Estimated GFR > 60 Random Glucose 99 (60-115) mg/dL Calcium 10.5 H (8.4-10.2) mg/dL Total Bilirubin 0.9 (0.0-1.0) mg/dL AST 23 (5-31) U/L ALT 32 H (0-31) U/L Alkaline Phosphatase 105 (39-117) U/L Troponin I High Sens < 3.5 (<3.5-17.0) ng/L Total Protein 7.8 (6.5-8.0) g/dL Albumin 4.6 (3.5-5.0) g/dL Urine Opiates Screen (Not Detect) Urine Fentanyl Screen (Not Detect) Ur Barbiturates Screen (Not Detect) Ur Phencyclidine Scrn (Not Detect) Ur Amphetamines Screen (Not Detect) U Benzodiazepines Scrn (Not Detect) Urine Cocaine Screen (Not Detect) U Marijuana (THC) Screen (Not Detect) Ethyl Alcohol mg/dL 05/30/21 05/30/21 Range/Units 10:38 11:47 WBC (4.8-10.8) X10*3/uL RBC (4.20-5.50) X10*6/uL Hgb (12.0-16.0) g/dl Hct (37.0-47.0) % MCV (80.0-98.0) fL MCH (27.0-33.0) pg MCHC (31.0-35.0) g/dl RDW (11.0-16.0) % Plt Count (160-400) X10*3/uL MPV (9.4-12.3) fL Immature Gran % (Auto) (0.0-0.4) % Neut % (Auto) (45-73) % Lymph % (Auto) (20-40) % Hamblen % (Auto) (2-11) % Eos % (Auto) (0-4) % Baso % (Auto) (0-2) % Lymph # (Auto) (1.2-4.9) X10*3/uL Hamblen # (Auto) (0.1-1.2) X10*3/uL Eos # (Auto) (0.0-0.4) X10*3/uL Baso # (Auto) (0.0-0.2) X10*3/uL Abs Immat Gran (auto) (0.00-0.03) X10*3/uL Absolute Neuts (auto) (2.0-8.3) x10*3/uL Absolute Nucleated RBC (0.0-0.012) X10*3/uL Nucleated RBC % (auto) (0.0-0.2) /100WBC Sodium (135-145) mmol/L Potassium (3.3-5.1) mmol/L Chloride (96-108) mmol/L Carbon Dioxide (22-29) mmol/L Anion Gap (12-20) BUN (9-16) mg/dL Creatinine (0.5-1.4) mg/dL Estim Creat Clear Calc Estimated GFR Random Glucose (60-115) mg/dL Calcium (8.4-10.2) mg/dL Total Bilirubin (0.0-1.0) mg/dL AST (5-31) U/L ALT (0-31) U/L Alkaline Phosphatase (39-117) U/L Troponin I High Sens (<3.5-17.0) ng/L Total Protein (6.5-8.0) g/dL Albumin (3.5-5.0) g/dL Urine Opiates Screen Not Detected (Not Detect) Urine Fentanyl Screen Not Detected (Not Detect) Ur Barbiturates Screen Not Detected (Not Detect) Ur Phencyclidine Scrn Not Detected (Not Detect) Ur Amphetamines Screen POSITIVE H (Not Detect) U Benzodiazepines Scrn Not Detected (Not Detect) Urine Cocaine Screen Not Detected (Not Detect) U Marijuana (THC) Screen POSITIVE H (Not Detect) Ethyl Alcohol < 10 mg/dL ECG Data Attestation: I personally reviewed and interpreted this ECG as follows: (normal sinus rythm, no changes from previous, rate 94, no st changes) Prior ECG tracings: available for review (no changes from ekg 05/29/21) Discharge Plan Discharge Clinical Impression: Acute drug intoxication Patient Disposition: Home, Self-Care Instructions: Methamphetamine Abuse (ED) Additional Instructions: You were given a prescription for ativan to help with anxiety and possible withdrawal symptoms. Take as prescribed. Return if worse. Prescriptions: New lorazepam [Ativan] 1 mg tablet 1 mg PO BID PRN (Reason: anxiety) Qty: 4 0RF No Action tetracycline 500 mg capsule 500 mg PO Q12H 14 Days Qty: 28 0RF metronidazole [Flagyl] 500 mg tablet 1,000 mg PO BID 14 Days Qty: 56 0RF ondansetron HCl [Zofran] 4 mg tablet 4 mg PO BID-TID PRN (Reason: nausea and vomiting) 14 Days Qty: 60 0RF azithromycin [Zithromax Z-Murphy] 250 mg tablet 250 mg PO DAILY 5 Days Qty: 6 0RF prednisone 20 mg tablet 40 mg PO DAILY 5 Days Qty: 10 0RF cetirizine 10 mg tablet 10 mg PO DAILY PRN (Reason: Itch and rash) Qty: 14 0RF prednisone 20 mg tablet 60 mg PO DAILY 4 Days Qty: 12 0RF famotidine [Pepcid] 20 mg tablet 20 mg PO DAILY Qty: 7 0RF hydroxyzine HCl 25 mg tablet 25 mg PO BEDTIME PRN (Reason: itching) Qty: 10 0RF omeprazole 20 mg capsule,delayed release(DR/EC) 20 mg PO BID Qty: 60 3RF sucralfate 1 gram tablet 1 g PO DAILY Qty: 30 3RF Rx Instructions: Please take daily at noon Biktarvy 50-200-25 mg tablet 1 tab PO DAILY 0RF clonidine HCl 0.1 mg tablet 0.2 mg PO BEDTIME 0RF spironolactone 50 mg tablet 50 mg PO DAILY 0RF hydroxyzine HCl 25 mg tablet 25 mg PO BEDTIME 0RF fluoxetine 20 mg capsule 20 mg PO DAILY 0RF Referrals: Physician,Unknown J [Primary Care Provider] - 2 days Interventions: ED Discharge Assessment Last Done: 05/30/21 13:00 Discharge Date/Time: 05/30/21 13:03 Print Language: Croatian
--- NOTE | 2021-05-30 09:42 | ECG_ITS ---
Test Reason : ANXIETY Blood Pressure : / mmHG Vent. Rate : 094 BPM Atrial Rate : 094 BPM P-R Int : 154 ms QRS Dur : 094 ms QT Int : 356 ms P-R-T Axes : 035 -09 061 degrees QTc Int : 445 ms Normal sinus rhythm Incomplete right bundle branch block Borderline ECG When compared with ECG of 29-MAY-2021 19:53, No significant changes seen Referred By: Nona Alonzo Electronically Signed By:MEG RAMÍREZ
[2021-05-30 10:21] LABS: MANUAL DIFF FLAG NO
[2021-05-30] MEDS: LORazepam 2 MG/ML VIAL 1 MG IVPUSH (10:27)
[2021-05-30 10:28] LABS: Basophils Percent Auto 0.2 % (0-2); Eosinophils Percent Auto 0.3 % (0-4); Hematocrit 45.5 % (37.0-47.0); Hemoglobin 15.7 g/dl (12.0-16.0); Imm Gran Abs Auto 0.03 X10*3/uL (0.00-0.03); Imm Gran Pct Auto 0.3 % (0.0-0.4); Lymphocytes Absolute Auto 2.8 X10*3/uL (1.2-4.9); Mean Corpuscular HGB Conc 34.5 g/dl (31.0-35.0); Mean Corpuscular Hemoglobin 29.2 pg (27.0-33.0); Mean Corpuscular Volume 84.7 fL (80.0-98.0); Mean Platelet Volume 9.8 fL (9.4-12.3); Monocytes Absolute Auto 0.7 X10*3/uL (0.1-1.2); Monocytes Percent Auto 7.5 % (2-11); Neutrophils Absolute Auto 5.7 x10*3/uL (2.0-8.3); Neutrophils Percent Auto 61.7 % (45-73); Platelet Count 299 X10*3/uL (160-400); Red Blood Count 5.37 X10*6/uL (4.20-5.50); White Blood Count 9.2 X10*3/uL (4.8-10.8)
[2021-05-30] MEDS: 0.9 % Sodium Chloride 1,000 ML 999 ML IV (10:31)
[2021-05-30 10:49] LABS: Alanine Aminotransferase 32 U/L (0-31); Albumin Level 4.6 g/dL (3.5-5.0); Alkaline Phosphatase 105 U/L (39-117); Anion Gap 14 (12-20); Aspartate Amino Transferase 23 U/L (5-31); Bilirubin Total 0.9 mg/dL (0.0-1.0); Blood Urea Nitrogen 10 mg/dL (9-16); Calcium 10.5 mg/dL (8.4-10.2); Carbon Dioxide 21 mmol/L (22-29); Chloride 108 mmol/L (96-108); Creatinine Clr Calc Pharmacy 96.6; Estimated Glomerular Filt Rate > 60; Glucose Random 99 mg/dL (60-115); Potassium 3.8 mmol/L (3.3-5.1); Sodium 139 mmol/L (135-145); Total Protein 7.8 g/dL (6.5-8.0)
[2021-05-30 10:55] LABS: Troponin-I High Sensitivity < 3.5 ng/L (<3.5-17.0)
[2021-05-30 10:56] LABS: Ethanol < 10 mg/dL
[2021-05-30 11:55] VITALS: BP 136/81; PULSE 86; RESP 15; TEMP 36.8; O2SAT 100
[2021-05-30] MEDS: Ondansetron ODT 4 MG TAB.RAPDIS TRANSLINGU (12:06)
[2021-05-30 12:13] LABS: Amphetamine Screen Urine POSITIVE (Not Detect); Barbiturates, Urine Not Detected (Not Detect); Benzodiazepines Screen Urine Not Detected (Not Detect); Cannabinoid Screen Urine POSITIVE (Not Detect); Cocaine Screen Urine Not Detected (Not Detect); Fentanyl, urine Not Detected (Not Detect); Opiate Screen Urine Not Detected (Not Detect); Phencyclidine Screen Urine Not Detected (Not Detect)
== END 2021-05-30 13:03 | disposition home or self-care (01) ==
PROVIDERS: Physician Assistant; Emergency Provider Emergency Medicine
DX: F11.120 Opioid abuse with intoxication, uncomplicated (principal); F41.9 Anxiety disorder, unspecified; F12.90 Cannabis use, unspecified, uncomplicated
CPT/HCPCS: 36415; 71045; 80053; 80307; 82077; 84484; 85025; 93005; 96361; 96374; 99284; J2060

== ENCOUNTER 2021-12-11 11:31 | Emergency (ER) | payer OTHER, MEDICAID, SELFPAY ==
[2021-12-11 12:10] VITALS: BP 147/48; PULSE 81; RESP 18; TEMP 36.4; O2SAT 99; BMI 34.4
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
== END 2021-12-11 13:13 | disposition home or self-care (01) ==
PROVIDERS: Emergency Provider Student in an Organized Health Care Education/Training Program; PCP Family Medicine
DX: J02.9 Acute pharyngitis, unspecified (principal); S16.1XXA Strain of muscle, fascia and tendon at neck level, initial encounter; V43.52XA Car driver injured in collision with other type car in traffic accident, initial encounter; Y93.89 Activity, other specified; Y92.414 Local residential or business street as the place of occurrence of the external cause; Y99.9 Unspecified external cause status
CPT/HCPCS: 99283

== ENCOUNTER 2022-09-02 23:11 | Emergency (ER) | payer OTHER, SELFPAY ==
[2022-09-03 00:24] VITALS: BP 138/95; PULSE 74; RESP 18; TEMP 36.4; O2SAT 97
[2022-09-03 00:26] VITALS: BP 140/93; PULSE 103; RESP 18; TEMP 36.6; O2SAT 97; BMI 34.5
--- NOTE | 2022-09-03 00:28 | ED_ITS ---
HPI - General Adult General Chief complaint: Ear Problems Stated complaint: Foreign object in L ear Time Seen by Provider: 09/03/22 00:19 Source: patient, family, RN notes reviewed and old records reviewed Mode of arrival: ambulatory Limitations: no limitations History of Present Illness HPI narrative: 27-year-old female presents for evaluation of 2 separate complaints patient reports that she has had a sore throat for the last few days and has swollen glands in the left side of her neck denies any fevers or chills. She is able to swallow but it is painful for her to swallow patient reports that she had a family method of putting garlic in the ear to help with a sore throat and swollen glands she placed an entire clove of garlic in the left ear and is unable to get out Related Data Home Medications Medication Instructions Recorded Confirmed bictegravir 50 mg-emtricitabine 1 tab PO DAILY 04/02/20 06/12/20 200 mg-tenofovir alafenam 25 mg tablet (Biktarvy) clonidine HCl 0.1 mg tablet 0.2 mg PO BEDTIME 04/02/20 06/12/20 fluoxetine 20 mg capsule 20 mg PO DAILY 04/02/20 06/12/20 hydroxyzine HCl 25 mg tablet 25 mg PO BEDTIME 04/02/20 06/12/20 spironolactone 50 mg tablet 50 mg PO DAILY 04/02/20 06/12/20 Previous Rx's Medication Instructions Recorded omeprazole 20 mg capsule,delayed 20 mg PO BID #60 caps 04/30/20 release sucralfate 1 gram tablet 1 g PO DAILY #30 tabs 04/30/20 metronidazole 500 mg tablet 1,000 mg PO BID 14 days #56 tabs 06/03/20 (Flagyl) ondansetron HCl 4 mg tablet 4 mg PO BID-TID PRN nausea and 06/03/20 (Zofran) vomiting 14 days #60 tabs tetracycline 500 mg capsule 500 mg PO Q12H 14 days #28 caps 06/03/20 azithromycin 250 mg tablet 250 mg PO DAILY 5 days #6 tabs 07/01/20 (Zithromax Z-Murphy) prednisone 20 mg tablet 40 mg PO DAILY 5 days #10 tabs 07/01/20 cetirizine 10 mg tablet 10 mg PO DAILY PRN Itch and rash 04/29/21 #14 tabs famotidine 20 mg tablet (Pepcid) 20 mg PO DAILY #7 tabs 04/29/21 hydroxyzine HCl 25 mg tablet 25 mg PO BEDTIME PRN itching #10 04/29/21 tabs prednisone 20 mg tablet 60 mg PO DAILY 4 days #12 tabs 04/29/21 lorazepam 1 mg tablet (Ativan) 1 mg PO BID PRN anxiety #4 tabs 05/30/21 amoxicillin 875 mg-potassium 1 tab PO BID #20 tabs 12/11/21 clavulanate 125 mg tablet cyclobenzaprine 10 mg tablet 10 mg PO TID PRN muscle spasm #10 12/11/21 tabs ibuprofen 600 mg tablet 600 mg PO Q8H PRN pain #20 tabs 12/11/21 amoxicillin 875 mg-potassium 1 tab PO BID #14 tabs 09/03/22 clavulanate 125 mg tablet Allergies Allergy/AdvReac Type Severity Reaction Status Date / Time No Known Allergies Allergy Verified 09/03/22 00:07 Review of Systems Constitutional: Constitutional: Denies chills, Denies fever(s) and Denies headache(s) Eyes: Eyes: Denies blurry vision ENT: Denies ear discharge, Reports otalgia, Denies headache(s) and Reports sore throat Comments: foreign body left ear Cardiovascular: Cardiovascular: Denies chest pain Respiratory: Respiratory: Denies chest congestion and Denies cough Gastrointestinal: Gastrointestinal: Denies abdominal pain, Denies nausea and Denies vomiting Genitourinary: Genitourinary: Denies dysuria Musculoskeletal: Musculoskeletal: Denies arthralgias, Denies joint swelling and Denies limited range of motion Integumentary/Breasts: Skin/Breast: Denies rash Neurologic: Denies headache(s) [facility] Past Medical History 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 Alcohol intake: current Alcohol intake frequency: a few times a week Alcohol type: beer Substance Use Type: Marijuana Current occupational status: student Physical Exam ED Vital Signs: Vital Signs - 24 hr 09/03/22 00:24 Temperature 97.5 F Pulse Rate 74 Respiratory Rate 18 Blood Pressure 138/95 H Pulse Oximetry 97 Oxygen Delivery Method Room Air Const General: healthy appearing, comfortable, no acute distress, alert and awake Nutritional Appearance: well nourished Orientation/consciousness: patient oriented x3 HENMT Other: patient has a close garlic and the left ear which is obscuring the tympanic membrane and most of the ear canal Ears: external ears normal Throat: No posterior oropharynx normal ( erythematous oropharynx without abscess. ) and Yes abnormal tonsil ( bilateral tonsillar hypertrophy) Neck Other: no anterior neck swelling Neck: Yes full ROM Skin General skin exam: no rashes or lesions noted and elasticity normal Neuro General: patient oriented x3 Cranial nerves: Yes Bilaterally intact EOM present Cognition (Neuro): normal cognition Extrem Other: Moving all extremities well without any obvious deformities Medical Decision Making Medical Decision Making [facility] Narrative: I was able to remove the slow garlic from the left ear using forceps. On re- evaluation of the ear, tympanic membrane is intact but erythematous. No bleeding or discharge in the ear. patient has evidence of pharyngitis, we will treat with Augmentin which will cover any otitis media and pharyngitis. Differential Diagnosis Ear foreign body Otitis media Otitis externa Pharyngitis Strep pharyngitis Discharge Plan Discharge Clinical Impression: Acute foreign body of left ear, Pharyngitis Patient Disposition: Home, Self-Care Instructions: Pharyngitis (ED) Additional Instructions: do not stick anything your ear ever take Augmentin twice daily for the next 7 days this will help with your sore throat as well as any potential ear infection Prescriptions: New amoxicillin-pot clavulanate 875-125 mg tablet 1 tab PO BID Qty: 14 0RF No Action tetracycline 500 mg capsule 500 mg PO Q12H 14 Days Qty: 28 0RF metronidazole [Flagyl] 500 mg tablet 1,000 mg PO BID 14 Days Qty: 56 0RF ondansetron HCl [Zofran] 4 mg tablet 4 mg PO BID-TID PRN (Reason: nausea and vomiting) 14 Days Qty: 60 0RF azithromycin [Zithromax Z-Murphy] 250 mg tablet 250 mg PO DAILY 5 Days Qty: 6 0RF prednisone 20 mg tablet 40 mg PO DAILY 5 Days Qty: 10 0RF cetirizine 10 mg tablet 10 mg PO DAILY PRN (Reason: Itch and rash) Qty: 14 0RF prednisone 20 mg tablet 60 mg PO DAILY 4 Days Qty: 12 0RF famotidine [Pepcid] 20 mg tablet 20 mg PO DAILY Qty: 7 0RF hydroxyzine HCl 25 mg tablet 25 mg PO BEDTIME PRN (Reason: itching) Qty: 10 0RF lorazepam [Ativan] 1 mg tablet 1 mg PO BID PRN (Reason: anxiety) Qty: 4 0RF amoxicillin-pot clavulanate 875-125 mg tablet 1 tab PO BID Qty: 20 0RF ibuprofen 600 mg tablet 600 mg PO Q8H PRN (Reason: pain) Qty: 20 0RF cyclobenzaprine 10 mg tablet 10 mg PO TID PRN (Reason: muscle spasm) Qty: 10 0RF omeprazole 20 mg capsule,delayed release(DR/EC) 20 mg PO BID Qty: 60 3RF sucralfate 1 gram tablet 1 g PO DAILY Qty: 30 3RF Rx Instructions: Please take daily at noon Biktarvy 50-200-25 mg tablet 1 tab PO DAILY clonidine HCl 0.1 mg tablet 0.2 mg PO BEDTIME spironolactone 50 mg tablet 50 mg PO DAILY hydroxyzine HCl 25 mg tablet 25 mg PO BEDTIME fluoxetine 20 mg capsule 20 mg PO DAILY
== END 2022-09-03 00:48 | disposition home or self-care (01) ==
PROVIDERS: Emergency Provider Student in an Organized Health Care Education/Training Program; PCP Family Medicine
DX: T16.2XXA Foreign body in left ear, initial encounter (principal); J02.9 Acute pharyngitis, unspecified; R13.10 Dysphagia, unspecified; X58.XXXA Exposure to other specified factors, initial encounter; Y93.9 Activity, unspecified; Y92.9 Unspecified place or not applicable; Y99.9 Unspecified external cause status; Z79.899 Other long term (current) drug therapy
CPT/HCPCS: 69200; 99284

== ENCOUNTER 2023-05-24 10:00 | Outpatient (REF) | payer OTHER, SELFPAY ==
[2023-05-24 11:26] LABS: MANUAL DIFF FLAG NO
[2023-05-24 11:40] LABS: Appearance Urine Clear; Color Urine Yellow; Glucose Urine UA Negative (Negative); Leukocyte Esterase Urine Negative (Negative); Nitrite Urine Negative (Negative); Specific Gravity - Urine 1.015 (1.005-1.025); Urine Blood Negative (Negative); Urine Ketones Negative (Negative); Urine Protein Negative (Neg-Trace)
[2023-05-24 11:47] LABS: Bacteria Urine None Seen (None Seen); Hyaline Casts Urine 0-2 /LPF (0-2); RBC Urine 0-2 /HPF (0-2); Squamous Epithelial Cell Urine 0-2 /HPF (0-2); WBC Urine 0-5 /HPF (0-5)
[2023-05-24 11:56] LABS: Basophils Percent Auto 0.2 % (0-2); Eosinophils Absolute Auto 0.1 X10*3/uL (0.0-0.4); Eosinophils Percent Auto 0.8 % (0-4); Hematocrit 47.4 % (37.0-47.0); Hemoglobin 15.8 g/dl (12.0-16.0); Imm Gran Abs Auto 0.04 X10*3/uL (0.00-0.03); Imm Gran Pct Auto 0.3 % (0.0-0.4); Lymphocytes Percent Auto 31.3 % (20-40); Mean Corpuscular HGB Conc 33.3 g/dl (31.0-35.0); Mean Corpuscular Hemoglobin 29.5 pg (27.0-33.0); Mean Corpuscular Volume 88.4 fL (80.0-98.0); Mean Platelet Volume 11.1 fL (9.4-12.3); Monocytes Absolute Auto 0.8 X10*3/uL (0.1-1.2); Monocytes Percent Auto 5.9 % (2-11); Neutrophils Absolute Auto 7.8 x10*3/uL (2.0-8.3); Neutrophils Percent Auto 61.5 % (45-73); Platelet Count 268 X10*3/uL (160-400); Red Blood Count 5.36 X10*6/uL (4.20-5.50); Red Cell Distribution Width 13.2 % (11.0-16.0); White Blood Count 12.7 X10*3/uL (4.8-10.8)
[2023-05-24 13:04] LABS: Alanine Aminotransferase 80 U/L (0-31); Albumin Level 4.8 g/dL (3.5-5.0); Alkaline Phosphatase 118 U/L (39-117); Anion Gap 15 (12-20); Aspartate Amino Transferase 40 U/L (5-31); Bilirubin Total 0.5 mg/dL (0.0-1.0); Blood Urea Nitrogen 14 mg/dL (9-16); Calcium 9.9 mg/dL (8.4-10.2); Carbon Dioxide 26 mmol/L (22-29); Chloride 105 mmol/L (96-108); Cholesterol 207 mg/dL (<200); Estimated Glomerular Filt Rate > 60; Glucose Random 88 mg/dL (60-115); HDL Cholesterol 36 mg/dL (>40); LDL Cholesterol Calculated 133 mg/dL (<100); Potassium 3.9 mmol/L (3.3-5.1); Sodium 142 mmol/L (135-145); Total Protein 8.5 g/dL (6.5-8.0); Triglycerides 193 mg/dL (<150)
[2023-05-24 13:48] LABS: CT PCR NOT DETECTED (Not Detect.); NG PCR NOT DETECTED (Not Detect.)
[2023-05-24 14:59] LABS: Reflex LDLD? No
[2023-05-26 07:37] LABS: RPR Rapid Plasma Reagin NON-REACTIVE (NON-REACTIVE)
[2023-05-26 09:23] LABS: Absolute CD3 Count 2210 cells/uL (840-3060); Absolute CD4 Count 1342 cells/uL (490-1740); Absolute CD8 Count 837 cells/uL (180-1170); Absolute Lymphocytes 4507 cells/uL (850-3900); Percent CD3 Cells 49 % (57-85); Percent CD4 Cells 30 % (30-61); Percent CD8 Cells 19 % (12-42)
[2023-05-26 14:44] LABS: HIV RNA PCR Qn Copies <20 DETECTED copies/mL (NOT DETECTED); HIV RNA PCR Qn Log Copies <1.30 DETECTED (NOT DETECTED)
[2023-05-27 08:48] LABS: TS Negative Control Passed; TS Panel A 0; TS Panel B 2; TS Positive Control Passed; TSpotTB Negative (Negative)
== END 2023-05-24 10:01 | disposition home or self-care (01) ==
LOC: HO.HHCL 10:00
PROVIDERS: Visit Provider Internal Medicine
DX: B20 Human immunodeficiency virus [HIV] disease (principal)
CPT/HCPCS: 0353U; 36415; 80053; 80061; 81001; 85025; 86359; 86360; 86481; 86592; 87536

== ENCOUNTER 2023-06-08 17:06 | Emergency (ER) | payer OTHER, SELFPAY ==
--- NOTE | ~2023-06-08 | CT_ITS ---
EXAMINATION: CT ABDOMEN AND PELVIS WITHOUT CONTRAST CLINICAL INFORMATION: Abdominal pain. Evaluate for a stone. COMPARISON: None available. TECHNIQUE: Multidetector volumetric imaging was performed from the superior aspect of the liver through the pubic symphysis. Sagittal and coronal reformatted images were obtained on the technologist's workstation. This CT examination was performed using dose optimization techniques as appropriate, variously including the following: *Automated exposure control *Adjustment of mA and/or kV according to patient size (this includes techniques or standardized protocols for targeted exams where dose is matched to indication/reason for exam; i.e. extremities or head) *Use of iterative reconstruction technique DLP: 798 mGy-cm FINDINGS: LUNG BASES: The visualized lung bases are unremarkable. LIVER, GALLBLADDER, AND BILIARY TREE: The liver is normal in size and shape. There is parenchymal hypoattenuation, consistent with steatosis. Focal fat sparing adjacent to the gallbladder fossa. No focal hepatic lesion or biliary ductal dilatation is present. The gallbladder is unremarkable with no evidence of radiopaque gallstones, gallbladder wall thickening, or obvious pericholecystic inflammatory changes. PANCREAS: Unremarkable. SPLEEN: Unremarkable. ADRENAL GLANDS: Unremarkable. KIDNEYS AND URETERS: The kidneys are normal in size, shape, and attenuation. No hydronephrosis, hydroureter, or calculi seen. No perinephric stranding. BLADDER: Nondistended and unremarkable. GASTROINTESTINAL TRACT: No small or large bowel obstruction. No bowel wall thickening or inflammatory change. Unremarkable appendix. PERITONEAL CAVITY: No intra-abdominal free air or free fluid. No intra-abdominal mass or organized collection/abscess formation. ABDOMINAL WALL: No significant hernia is appreciated. LYMPH NODES: No significant lymphadenopathy. VASCULAR: Unremarkable. PELVIC VISCERA: Status post hysterectomy. Mild stranding adjacent to the vaginal stump which could represent vaginitis in the appropriate clinical setting. OSSEOUS STRUCTURES: Small sclerotic foci within the bilateral femoral heads as well as the right acetabulum and right intertrochanteric region. Findings likely represent bone islands. CT/CT abdomen pelvis wo IV con IMPRESSION: 1. No hydronephrosis or nephrolithiasis. Nondistended and unremarkable urinary bladder. 2. Status post hysterectomy. Mild stranding adjacent to the vaginal stump which could represent vaginitis in the appropriate clinical setting. 3. Hepatic steatosis. No hepatic parenchymal lesion or biliary ductal dilatation. 4. No intra-abdominal mass, lymphadenopathy, or ascites. Fleischner guidelines were followed.
[2023-06-08 17:55] VITALS: BP 143/84; PULSE 102; RESP 18; TEMP 36.7; O2SAT 98; BMI 37.2
--- NOTE | 2023-06-08 17:58 | ED_ITS ---
HPI - General Adult General Chief complaint: Urogenital-Female Stated complaint: Painful urination, urine is blue? 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 Patient reports that her throat is always dry and denies any history of kidney stones or recent changes in medications. Patient reports that the hematuria has been associated with bilateral flank pain but it is significantly worse on the left and this has been ongoing for approximately 2 months. Patient also reports pain in the perineal area but otherwise no scrotal pain/erythema/induration. Related Data Home Medications Medication Instructions Recorded Confirmed bictegravir 50 mg-emtricitabine 1 tab PO DAILY 04/02/20 06/12/20 200 mg-tenofovir alafenam 25 mg tablet (Biktarvy) clonidine HCl 0.1 mg tablet 0.2 mg PO BEDTIME 04/02/20 06/12/20 fluoxetine 20 mg capsule 20 mg PO DAILY 04/02/20 06/12/20 hydroxyzine HCl 25 mg tablet 25 mg PO BEDTIME 04/02/20 06/12/20 spironolactone 50 mg tablet 50 mg PO DAILY 04/02/20 06/12/20 Previous Rx's Medication Instructions Recorded omeprazole 20 mg capsule,delayed 20 mg PO BID #60 caps 04/30/20 release sucralfate 1 gram tablet 1 g PO DAILY #30 tabs 04/30/20 metronidazole 500 mg tablet 1,000 mg (2 x 500 mg) PO BID 14 06/03/20 (Flagyl) days #56 tabs ondansetron HCl 4 mg tablet 4 mg PO BID-TID PRN nausea and 06/03/20 (Zofran) vomiting 14 days #60 tabs tetracycline 500 mg capsule 500 mg PO Q12H 14 days #28 caps 06/03/20 azithromycin 250 mg tablet 250 mg PO DAILY 5 days #6 tabs 07/01/20 (Zithromax Z-Murpyh) prednisone 20 mg tablet 40 mg (2 x 20 mg) PO DAILY 5 days 03/02/21 #10 tabs cetirizine 10 mg tablet 10 mg PO DAILY PRN Itch and rash 04/29/21 #14 tabs famotidine 20 mg tablet (Pepcid) 20 mg PO DAILY #7 tabs 04/29/21 hydroxyzine HCl 25 mg tablet 25 mg PO BEDTIME PRN itching #10 04/29/21 tabs prednisone 20 mg tablet 60 mg (3 x 20 mg) PO DAILY 4 days 04/29/21 #12 tabs lorazepam 1 mg tablet (Ativan) 1 mg PO BID PRN anxiety #4 tabs 05/30/21 amoxicillin 875 mg-potassium 1 tab PO BID #20 tabs 12/11/21 clavulanate 125 mg tablet cyclobenzaprine 10 mg tablet 10 mg PO TID PRN muscle spasm #10 12/11/21 tabs ibuprofen 600 mg tablet 600 mg PO Q8H PRN pain #20 tabs 12/11/21 amoxicillin 875 mg-potassium 1 tab PO BID #14 tabs 09/03/22 clavulanate 125 mg tablet levofloxacin 750 mg tablet 750 mg PO DAILY #14 tabs 06/08/23 Allergies Allergy/AdvReac Type Severity Reaction Status Date / Time No Known Allergies Allergy Verified 06/08/23 17:55 Review of Systems 2 Review of Systems: Pertinent positives and negatives as stated in HPI [facility] Past Medical History Source: nursing notes reviewed Medical History Ulcer GERD (gastroesophageal reflux disease) Anxiety Surgical History Hx of appendectomy Family History Family History Mother Cancer Father Cancer Maternal Aunt Cancer Maternal Uncle Cancer Social History Social History Household Members: Other 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 GENERAL: Well developed, well nourished, in no acute distress. HEAD: Normocephalic/atraumatic EYES: PERRLA, EOMI EARS: Ext canals without abnormality NOSE: Nares patent bilateral OROPHARYNX: no oral lesions noted, posterior pharynx clear NECK: Supple, no adenopathy LUNGS: Normal breath sounds. No adventitious sounds or accessory muscle use. SpO2<99> CARDIOVASCULAR: Regular rate and rhythm without noted murmurs ABDOMEN: Soft, diffusely tender but maximal in left lower quadrant/left upper quadrant with associated left CVA tenderness, non-distended with bowel sounds. No rigidity. No guarding. No palpable masses or hernias noted : [Rn Diabetes Educator-Jvaier], tenderness noted in the perineal area without erythema or induration and no obvious fluctuance noted no other evidence of erythema or induration on exposed buttocks or base of scrotum. MUSCULOSKELETAL: No tenderness, deformities, or effusions noted on gross inspection. EXTREMITIES: No cyanosis, clubbing or edema. SKIN: Inspection of the skin reveals no rashes NEUROLOGIC: Alert and oriented x 4. Strength and sensation to light touch were grossly intact x 4. Course Course Course Narrative: RME:?28 yo female here with hematuria, dysuria, lower back/ abd pain x1 d labs, UA, ct ordered Full HPI, ROS and PE to be performed by the primary ED provider. Medications Administered Discontinued Medications Generic Name Dose Route Start Last Admin Trade Name Freq PRN Reason Stop Dose Admin Levofloxacin 750 mg 06/08/23 22:54 06/08/23 23:13 Levofloxacin 750 Mg Tablet PO 06/08/23 22:55 750 mg ONCE ONE Administration Medical Decision Making Medical Decision Making [facility] Narrative: 28-year-old female (assigned male at and has not undergone any lower body surgery) with history and clinical presentation, DDX: UTI, pyelonephritis, prostatitis, renal colic, diverticulitis felt to be less likely. I reviewed all investigations and hematologic indices demonstrated leukocytosis without left shift and no anemia or thrombocytopenia. Chemistry indices are negative for LAZ or electrolyte derangements. Urinalysis is significant for blood/WBCs as well as RBCs. CT scan with slight missed read given the fact that this is a male assigned at without any lower body surgeries. Therefore, the CT scan was being read as post hysterectomy with mild stranding adjacent to the vaginal stump, however on my evaluation of the CT scan it appears there is stranding around the prostate. Patient received the initial dose of levofloxacin here in the emergency room and then was discharged with remaining course and strictly instructed to follow-up with her primary care doctor. Differential Diagnosis Differential Diagnoses: The differential diagnosis associated with the presentation includes Please see the discussion above Admission/Observation Consideration of admission/observation: Escalation of care including admission/observation considered Please see the discussion above Lab Data MDM Lab Attestation statement: I reviewed the patient's lab results. Please see the discussion above 06/08/23 18:34 06/08/23 18:34 Labs: Lab Results 06/08/23 Range/Units 18:34 WBC 13.7 H (4.8-10.8) X10*3/uL RBC 5.23 (4.20-5.50) X10*6/uL Hgb 15.3 (12.0-16.0) g/dl Hct 44.8 (37.0-47.0) % MCV 85.7 (80.0-98.0) fL MCH 29.3 (27.0-33.0) pg MCHC 34.2 (31.0-35.0) g/dl RDW 13.3 (11.0-16.0) % Plt Count 227 (160-400) X10*3/uL MPV 10.1 (9.4-12.3) fL Immature Gran % (Auto) 0.4 (0.0-0.4) % Neut % (Auto) 63.4 (45-73) % Lymph % (Auto) 28.2 (20-40) % Emmons % (Auto) 7.5 (2-11) % Eos % (Auto) 0.4 (0-4) % Baso % (Auto) 0.1 (0-2) % Lymph # (Auto) 3.9 (1.2-4.9) X10*3/uL Emmons # (Auto) 1.0 (0.1-1.2) X10*3/uL Eos # (Auto) 0.1 (0.0-0.4) X10*3/uL Baso # (Auto) 0.0 (0.0-0.2) X10*3/uL Abs Immat Gran (auto) 0.05 H (0.00-0.03) X10*3/uL Absolute Neuts (auto) 8.7 H (2.0-8.3) x10*3/uL Absolute Nucleated RBC 0.000 (0.0-0.012) X10*3/uL Nucleated RBC % (auto) 0.0 (0.0-0.2) /100WBC Sodium 140 (135-145) mmol/L Potassium 3.8 (3.3-5.1) mmol/L Chloride 104 (96-108) mmol/L Carbon Dioxide 27 (22-29) mmol/L Anion Gap 13 (12-20) BUN 9 (9-16) mg/dL Creatinine 0.96 (0.5-1.4) mg/dL Estim Creat Clear Calc 114.0 Estimated GFR > 60 Random Glucose 90 (60-115) mg/dL Calcium 9.9 (8.4-10.2) mg/dL Magnesium 2.1 (1.6-2.6) mg/dL Lipase 19 (8-78) U/L Urine Color Yellow Urine Appearance Turbid Urine pH 7.0 (5.0-9.0) Ur Specific [place] 1.020 (1.005-1.025) Urine Protein 100 (2+) H (Neg-Trace) mg/dL Urine Glucose (UA) Negative (Negative) mg/dL Urine Ketones Negative (Negative) mg/dL Urine Blood Large (3+) H (Negative) Urine Nitrite Negative (Negative) Ur Leukocyte Esterase Large (3+) H (Negative) Urine RBC >20 H (0-2) /HPF Urine WBC >50 H (0-5) /HPF Ur Squamous Epith Cells 0-2 (0-2) /HPF Urine Bacteria None Seen (None Seen) Hyaline Casts 0-2 (0-2) /LPF Urine Test NEGATIVE (NEGATIVE) Radiology Impression Discussion of test interpretation with radiology: I have reviewed the radiologist's reading. Radiologist Impression: Please see the discussion above External Record Review External record reviewed: Outpatient record, Prior outpatient labs and Prior outpatient radiology Chronic Conditions Patient?s care impacted by: Other HIV, GERD Critical Care Time Critical Care Time Critical Care Time: Yes Total Critical Care Time: 45 Attestation: I personally attest to this time spent taking care of the patient. Discharge Plan Discharge Clinical Impression: Family history of acute prostatitis Patient Disposition: Home, Self-Care Instructions: Prostatitis (ED) Additional Instructions: 1. Reanudar todos los medicamentos caseros seg?n lo recetado. 2. Complete todo el ciclo de antibi?ticos seg?n lo prescrito. Recuerde abstenerse de cualquier encuentro sexual jazmín dajuan tiempo de 14 d?as. 3. Recomiende Tylenol/ibuprofeno de venta andrea seg?n sea necesario para controlar la fiebre y el dolor. 4. Melquiades un seguimiento con allen m?dico de atenci?n primaria y con allen m?dico de enfermedades infecciosas. Regrese a la cliff de emergencias si los s?ntomas empeoran. 1. Resume all home medications as prescribed. 2. Complete the entire course of antibiotics as prescribed. Please remember to abstain from any sexual encounters during this time of 14 days. 3. Recommend [id number] Tylenol/ibuprofen as needed for fever control and pain control. 4. Please follow-up with your primary care doctor as well as your infectious disease doctor. Return to the ER for any worsening symptoms. Prescriptions: New levofloxacin 750 mg tablet 750 mg PO DAILY Qty: 14 0RF No Action tetracycline 500 mg capsule 500 mg PO Q12H 14 Days Qty: 28 0RF metronidazole [Flagyl] 500 mg tablet 1,000 mg PO BID 14 Days Qty: 56 0RF ondansetron HCl [Zofran] 4 mg tablet 4 mg PO BID-TID PRN (Reason: nausea and vomiting) 14 Days Qty: 60 0RF azithromycin [Zithromax Z-Murphy] 250 mg tablet 250 mg PO DAILY 5 Days Qty: 6 0RF prednisone 20 mg tablet 40 mg PO DAILY 5 Days Qty: 10 0RF cetirizine 10 mg tablet 10 mg PO DAILY PRN (Reason: Itch and rash) Qty: 14 0RF prednisone 20 mg tablet 60 mg PO DAILY 4 Days Qty: 12 0RF famotidine [Pepcid] 20 mg tablet 20 mg PO DAILY Qty: 7 0RF hydroxyzine HCl 25 mg tablet 25 mg PO BEDTIME PRN (Reason: itching) Qty: 10 0RF lorazepam [Ativan] 1 mg tablet 1 mg PO BID PRN (Reason: anxiety) Qty: 4 0RF amoxicillin-pot clavulanate 875-125 mg tablet 1 tab PO BID Qty: 20 0RF ibuprofen 600 mg tablet 600 mg PO Q8H PRN (Reason: pain) Qty: 20 0RF cyclobenzaprine 10 mg tablet 10 mg PO TID PRN (Reason: muscle spasm) Qty: 10 0RF amoxicillin-pot clavulanate 875-125 mg tablet 1 tab PO BID Qty: 14 0RF omeprazole 20 mg capsule,delayed release(DR/EC) 20 mg PO BID Qty: 60 3RF sucralfate 1 gram tablet 1 g PO DAILY Qty: 30 3RF Rx Instructions: Please take daily at noon Biktarvy 50-200-25 mg tablet 1 tab PO DAILY clonidine HCl 0.1 mg tablet 0.2 mg PO BEDTIME spironolactone 50 mg tablet 50 mg PO DAILY hydroxyzine HCl 25 mg tablet 25 mg PO BEDTIME fluoxetine 20 mg capsule 20 mg PO DAILY Interventions: ED Discharge Assessment Last Done: 06/08/23 23:15 Discharge Date/Time: 06/08/23 23:15
[2023-06-08 18:39] LABS: MANUAL DIFF FLAG NO
[2023-06-08 18:41] LABS: Basophils Percent Auto 0.1 % (0-2); Eosinophils Absolute Auto 0.1 X10*3/uL (0.0-0.4); Eosinophils Percent Auto 0.4 % (0-4); Hematocrit 44.8 % (37.0-47.0); Hemoglobin 15.3 g/dl (12.0-16.0); Imm Gran Abs Auto 0.05 X10*3/uL (0.00-0.03); Imm Gran Pct Auto 0.4 % (0.0-0.4); Lymphocytes Absolute Auto 3.9 X10*3/uL (1.2-4.9); Lymphocytes Percent Auto 28.2 % (20-40); Mean Corpuscular HGB Conc 34.2 g/dl (31.0-35.0); Mean Corpuscular Hemoglobin 29.3 pg (27.0-33.0); Mean Corpuscular Volume 85.7 fL (80.0-98.0); Mean Platelet Volume 10.1 fL (9.4-12.3); Monocytes Percent Auto 7.5 % (2-11); Neutrophils Absolute Auto 8.7 x10*3/uL (2.0-8.3); Neutrophils Percent Auto 63.4 % (45-73); Platelet Count 227 X10*3/uL (160-400); Red Blood Count 5.23 X10*6/uL (4.20-5.50); Red Cell Distribution Width 13.3 % (11.0-16.0); White Blood Count 13.7 X10*3/uL (4.8-10.8)
[2023-06-08 18:42] LABS: Appearance Urine Turbid; Color Urine Yellow; Glucose Urine UA Negative (Negative); Leukocyte Esterase Urine Large (3+) (Negative); Nitrite Urine Negative (Negative); UMIC TRIGGER UACC YES; Urine Blood Large (3+) (Negative); Urine Ketones Negative (Negative); Urine Protein 100 (2+) mg/dL (Neg-Trace)
[2023-06-08 18:43] LABS: UPreg QC Valid YES; Urine Pregnancy NEGATIVE (NEGATIVE)
[2023-06-08 18:47] LABS: Bacteria Urine None Seen (None Seen); Hyaline Casts Urine 0-2 /LPF (0-2); RBC Urine >20 /HPF (0-2); Squamous Epithelial Cell Urine 0-2 /HPF (0-2); UACC Culture Trigger YES; WBC Urine >50 /HPF (0-5)
[2023-06-08 18:58] LABS: Anion Gap 13 (12-20); Blood Urea Nitrogen 9 mg/dL (9-16); Calcium 9.9 mg/dL (8.4-10.2); Carbon Dioxide 27 mmol/L (22-29); Chloride 104 mmol/L (96-108); Estimated Glomerular Filt Rate > 60; Glucose Random 90 mg/dL (60-115); Lipase 19 U/L (8-78); Magnesium 2.1 mg/dL (1.6-2.6); Potassium 3.8 mmol/L (3.3-5.1); Sodium 140 mmol/L (135-145)
[2023-06-08 20:07] VITALS: BP 157/88; PULSE 101; RESP 18; TEMP 36.8; O2SAT 99
--- NOTE | 2023-06-08 22:54 | PC.NURSE ---
d/c education at bedside with Dr. Cuello and Javier kelsey. pt denies any further questions/concerns. pt in agreement with d/c verbalizes understanding. axox4 ambulatory with steady gait. nad.
[2023-06-08] MEDS: levoFLOXacin 750 MG TABLET PO (23:13)
== END 2023-06-08 23:15 | disposition home or self-care (01) ==
PROVIDERS: Physician Assistant Medical; Emergency Provider Student in an Organized Health Care Education/Training Program
DX: R31.9 Hematuria, unspecified (principal); R10.9 Unspecified abdominal pain
CPT/HCPCS: 36415; 74176; 80048; 81001; 81025; 83690; 83735; 85025; 87086; 99283; 99284

== ENCOUNTER 2023-06-30 15:37 | Outpatient (REF) | payer OTHER, SELFPAY ==
--- NOTE | ~2023-06-30 | US_ITS ---
EXAMINATION: US SOFT TISSUE NECK CLINICAL INFORMATION: Left mass in neck palpated, patient reports pain at left neck levels Ib, II, III and IV. COMPARISON: None available. TECHNIQUE: Ultrasound of the neck soft tissues is performed with high- frequency valderrama-scale imaging and color Doppler. FINDINGS: Targeted ultrasound images were obtained by the wireless telegrapher of the area of concern as indicated by the patient in the left neck at levels Ib, II, III and IV. Radiologist was not in attendance. Images were later provided for interpretation. LEFT NECK: Left neck level II atypical lymph node with cortical thickening measures 2.2 x 0.9 x 1.4 cm. Left neck level II atypical lymph node measures 2.3 x 0.6 x 1.3 cm. Left neck level II node with echogenic hilum and borderline cortical thickening measures 1.2 x 0.7 x 1.5 cm. Additional smaller left neck nodes are present. Incidental note on limited views of the left thyroid lobe of a 0.8 x 1.1 x 1.0 cm thyroid nodule, volume 0.46 mL. This nodule appears hypoechoic with smooth margins, solid, not taller than wide and with punctate calcifications for total of 7 points and TI-RADS category 5 classification. This nodule meets criteria for biopsy. Dedicated thyroid ultrasound followed by fine-needle aspiration recommended. Multiple right neck nodes, largest level II demonstrate prominent cortices and measure 3.5 x 0.9 x 2.7 cm and 1.8 x 0.7 x 1.3 cm. US/US soft tiss head and/or neck IMPRESSION: 1. Multiple cervical lymph nodes as detailed above, some abnormal/atypical. Correlation with clinical exam recommended to determine further management including possible additional imaging with CT scan of the neck, treatment or biopsy. Recommend follow-up ultrasound in 3 months. 2. Incidental note on limited views of the left thyroid lobe of a 1.1 cm TR5 thyroid nodule which meets criteria for biopsy. Dedicated complete thyroid ultrasound examination followed by fine-needle aspiration recommended for further evaluation. This study was presented 07/04/2023 for interpretation. PSA staff will provide results to referring provider at this time.
== END 2023-06-30 15:38 | disposition home or self-care (01) ==
LOC: HO.HMGCX 15:37
PROVIDERS: Visit Provider Internal Medicine
DX: B20 Human immunodeficiency virus [HIV] disease (principal)
CPT/HCPCS: 76536

== ENCOUNTER → 2023-07-12 10:59 | Outpatient (BNV) | payer OTHER, SELFPAY | PROVIDERS: Referring Provider Family Medicine; Visit Provider Internal Medicine | DX: R59.1 Generalized enlarged lymph nodes (principal) | CPT/HCPCS: 99204; 99213 ==

== ENCOUNTER 2023-07-19 12:50 | Outpatient (REF) | payer OTHER, SELFPAY ==
--- NOTE | ~2023-07-19 | US_ITS ---
Ultrasound-guided right cervical lymph core biopsy and fine-needle aspiration Indication: Bilateral cervical lymphadenopathy, HIV, thyroid nodule Procedure: Informed consent was obtained from the patient prior to the procedure. During this process, the procedure and potential alternatives were explained, along with the intended outcome and benefits. The risks of the procedure, as well as the risks of not doing the procedure, were discussed. The patient was given the opportunity to ask questions regarding the procedure and appeared competent to make medical decisions. A signed consent form which documents this discussion was placed in the medical record. A timeout was performed in the room. A preprocedure ultrasound was performed, which demonstrated the largest cervical lymph node to be in the right neck. The patient was placed in a supine position. The right side of the neck was prepped and draped in routine sterile fashion. 1% lidocaine was used as anesthetic. Under real-time ultrasound guidance, a 17-gauge trocar needle was advanced into a right level 2, cervical lymph node. An 18-gauge biopsy gun was then inserted through the coaxial needle with the tip positioned within the right cervical lymph node. An 18-gauge core biopsy was obtained. A total of 5, 18-gauge cores were performed. Given the scant amount of material obtained from each core, it was decided to perform an aspiration of the right cervical lymph node. A 25-gauge spinal needle needle was advanced into the right cervical lymph node and aspiration was performed. A total of 2 aspirations were performed. The specimens were placed in CytoLyt and and RPMI. Postprocedure images showed no hematoma. A Band-Aid was applied to the access site. The patient tolerated the procedure well with no immediate complications. Permanent ultrasound images were archived to the procedure. US/US biopsy lymph node Impression: Ultrasound-guided right cervical lymph node core biopsy and fine-needle aspiration This procedure was performed by Jayson Torres PA-C, and directly supervised by Dr. Yuen
== END 2023-07-19 12:51 | disposition home or self-care (01) ==
LOC: HO.US 12:50
PROVIDERS: Orthopaedic Surgery; PCP Family Medicine; Visit Provider Internal Medicine
DX: R59.1 Generalized enlarged lymph nodes (principal)
CPT/HCPCS: 36415; 38505; 76942; 88173; 88184; 88185; 88300; 88305

== ENCOUNTER → 2023-07-19 12:52 | Outpatient (BNV) | payer OTHER, SELFPAY | PROVIDERS: PCP Family Medicine; Visit Provider Physician Assistant Surgical | DX: R59.1 Generalized enlarged lymph nodes (principal) | CPT/HCPCS: 38505; 76942 ==

== ENCOUNTER 2023-08-11 11:45 | Outpatient (REF) | payer OTHER, SELFPAY | END 2023-08-11 11:46 | disposition home or self-care (01) | LOC: HO.LAB 11:45 | PROVIDERS: PCP Family Medicine; Visit Provider Physician Assistant | DX: R10.9 Unspecified abdominal pain (principal); K21.9 Gastro-esophageal reflux disease without esophagitis; D72.829 Elevated white blood cell count, unspecified | CPT/HCPCS: 99202 ==

== ENCOUNTER 2023-08-11 11:45 | Outpatient (AMB) | payer OTHER, SELFPAY ==
--- NOTE | 2023-08-11 11:49 | A.OFFVIS_ITS ---
Intake Vital Signs 08/11/23 11:51 Height 5 ft 7 in Weight 240 lb 4.862 oz BMI 37.6 BP 127/75 Blood Pressure Location Lt brachial Position Sitting Pulse 84 Intake Visit Reasons: Abdominal pain/ Gerd Intake Note: Liliana presents in the office as a new patient for GERD and abdominal pains CC: ball feeling in the stomach, bacteria in the stomach, states she has throat pains in the left side. Has gone to all the ED. 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 She says they treated for bacteria- with antibx- She has not seen pcp in greater than 1 year-awaiting appt-she says she on the list- She has been to [facility] ED x 2- [place] [facility]intermittent diffuse abdominal rvhn-uxdhptmjrxa-vtffyh to id anything that exacerbates or makes it better She is tearful-she feels that nobody wants to help her Appetite is good- No issue with her bowels-she has not had any fever or chills [facility] Medical History (Updated 08/11/23 @ 12:55 by Bette Black PA-C) Elevated WBC count Ulcer GERD (gastroesophageal reflux disease) Anxiety Surgical History Hx of appendectomy Family History Mother Cancer Father Cancer Maternal Aunt Cancer Maternal Uncle Cancer Social History Household Members: Other 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 Alcohol intake: current Alcohol intake frequency: a few times a week Alcohol type: beer Substance Use Type: Marijuana Current occupational status: student Review of Systems Const All systems reviewed & are unremarkable except as noted in HPI and below Reports body aches, Denies chills, Denies fever(s), Denies poor appetite and Denies weight loss Card Denies chest pain and Denies dyspnea Resp Denies cough, Denies dyspnea and Denies wheezing GI Reports abdominal pain (Describes as discomfort comes and goes-diffuse), Reports bloating, Denies hematochezia, Reports dyspepsia, Reports heartburn, Denies nausea and Denies vomiting Aller/Immun Denies wheezing Physical Exam Vital Signs: Last Vital Signs Pulse 84 08/11/23 11:51 BP 127/75 08/11/23 11:51 BMI result Body Mass Index 37.6 Const General: cooperative, comfortable, no acute distress and anxious (Tearful) Nutritional Appearance: overweight Orientation/consciousness: patient oriented x3 Limitations: no limitations Eyes Sclerae: sclerae normal GI Inspection: Yes obesity Palpation (GI): Soft to palpation, nontender and no guarding Neuro General: patient oriented x3 Extrem General: Yes full ROM Psych Speech and movement: Clear speech present Affect: Sad affect present (tearful) Attitude: cooperative Thought content: Normal thought content present, suicidality and no homicidality Results Reviewed Results Reviewed: MPRESSION should read: 1. No hydronephrosis or nephrolithiasis. Nondistended and unremarkable urinary bladder. 2. Mild stranding adjacent to the seminal vesicles which may represent normal variation versus a minimal infectious or inflammatory process. No soft tissue mass or pelvic fluid collection/ascites. 3. Hepatic steatosis. No hepatic parenchymal lesion or biliary ductal dilatation. 4. No intra-abdominal mass, lymphadenopathy, or ascites. Assessment & Plan Assessment & Plan (1) Elevated WBC count: Comment: Reviewed labs elevated WBC -ED-she had been seen since that time at [facility] no records for review Code(s): D72.829 - Elevated white blood cell count, unspecified Plan: CBC (2) GERD (gastroesophageal reflux disease): Code(s): K21.9 - Gastro-esophageal reflux disease without esophagitis Plan HP- if pos will treat Pantoprazole 20 bid Orders: Orders H pylori Ag Stool Today A04.8 - Other specified bacterial intestinal infections Complete Blood Count Auto Diff Today A04.8 - Other specified bacterial intestinal infections, D72.829 - Elevated white blood cell count, unspecified Medications: New pantoprazole 20 mg PO BID PRN 30 tabs 6RF acid reflux 30 days Patient Instructions: CBC H pylori stool antigen if positive will Begin pantoprazole 20 mg b.i.d. Reflux precautions reviewed Avoid culprits Follow-up to establish with a PCP Encouraged to call questions or concerns Coding Level of Care Code New Pt Level 3 (23505) Diagnoses Elevated WBC count D72.829 GERD (gastroesophageal reflux disease) K21.9 Time Spent (min) 30
[2023-08-11 11:51] VITALS: BP 127/75; PULSE 84; BMI 37.6
== END 2023-08-11 12:44 | disposition home or self-care (01) ==
PROVIDERS: PCP Family Medicine; Visit Provider Physician Assistant
DX: D72.829 Elevated white blood cell count, unspecified (principal); K21.9 Gastro-esophageal reflux disease without esophagitis
CPT/HCPCS: 99203

== ENCOUNTER 2023-08-18 12:15 | Outpatient (REF) | payer OTHER, SELFPAY ==
[2023-08-18 13:55] LABS: Basophils Percent Auto 0.4 % (0-2); Eosinophils Percent Auto 0.3 % (0-4); Hematocrit 43.3 % (37.0-47.0); Imm Gran Abs Auto 0.02 X10*3/uL (0.00-0.03); Imm Gran Pct Auto 0.3 % (0.0-0.4); Lymphocytes Absolute Auto 1.9 X10*3/uL (1.2-4.9); Lymphocytes Percent Auto 25.6 % (20-40); MANUAL DIFF FLAG SCAN; Mean Corpuscular HGB Conc 34.6 g/dl (31.0-35.0); Mean Corpuscular Hemoglobin 29.5 pg (27.0-33.0); Mean Corpuscular Volume 85.2 fL (80.0-98.0); Mean Platelet Volume 11.6 fL (9.4-12.3); Monocytes Absolute Auto 0.7 X10*3/uL (0.1-1.2); Neutrophils Absolute Auto 4.6 x10*3/uL (2.0-8.3); Neutrophils Percent Auto 63.4 % (45-73); Platelet Count 207 X10*3/uL (160-400); Red Blood Count 5.08 X10*6/uL (4.20-5.50); Red Cell Distribution Width 13.2 % (11.0-16.0); SCAN SMEAR FLAG 1; White Blood Count 7.2 X10*3/uL (4.8-10.8)
[2023-08-18 14:23] LABS: SLIDE REVIEW VERIFIED
== END 2023-08-18 12:16 | disposition home or self-care (01) ==
LOC: HO.LAB 12:15
PROVIDERS: Visit Provider Physician Assistant
DX: A04.8 Other specified bacterial intestinal infections (principal); D72.829 Elevated white blood cell count, unspecified
CPT/HCPCS: 36415; 85025

== ENCOUNTER 2023-09-01 11:31 | Outpatient (AMB) | payer OTHER, SELFPAY ==
--- NOTE | 2023-09-01 11:32 | MHC.OFFVIS ---
Vital Signs 09/01/23 11:33 Height 5 ft 7 in Weight 239 lb BMI 37.4 Intake Visit Reasons: Cervical lymphadenopathy, erosional biopsy Intake Note: This patient presents for an assessment for cervical lymphadenopathy, erosional biopsy. Patient c/o; reports I feel something here my this side of my neck , reports feels mass left side of neck, reports has a cough, reports no dysphagia. 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 She has felt lumps on her left neck for about 6 months now. She says that this has been increasing in size. She underwent needle aspiration biopsy in June, which did not reveal any suspicious findings. However, with the increase in size of these lymph nodes, she was referred to me by Dr. Newman for a more definitive biopsy. She says she has some night sweats and chills. She also has this persistent cough for about 2-3 months. Denies any weight loss. 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 Alcohol intake: current Alcohol intake frequency: a few times a week Alcohol type: beer Substance Use Type: Marijuana Current occupational status: student Review of Systems Const Denies chills, Denies fever(s) and Reports night sweats Card Denies chest pain, Denies dyspnea and Denies dyspnea on exertion Resp Reports cough, Denies dyspnea and Denies dyspnea on exertion GI Denies hematochezia and Denies change in bowel habits Denies hematuria Musc Denies back pain and Denies limited range of motion Neuro Denies focal weakness and Denies convulsions Psych Denies depression and Denies mood swings Physical Exam Vital Signs: BMI result Body Mass Index 37.4 Const General: comfortable and no acute distress Orientation/consciousness: patient oriented x3 Neck Other: Multiple enlarged lymph nodes of the left neck mostly in the posterior triangle, with 1 measuring about 1 5 cm Neck: Yes no lymphadenopathy Resp Auscultation: clear to auscultation bilaterally Cardio Rhythm: regular rhythm GI Palpation (GI): Soft to palpation, nontender and no guarding Neuro General: patient oriented x3 Assessment & Plan Assessment & Plan (1) Cervical lymphadenopathy: Code(s): R59.0 - Localized enlarged lymph nodes Category: Medical Plan: She has had this persistent cervical lymphadenopathy. She was referred to me for excision biopsy. There was 1 particular lymph node on the posterior triangle that seems to be best accessible. I explained the technique of excision biopsy in the operating room under anesthesia. I reviewed the risks including but not limited to bleeding, infections, injury to vessels, inherent risks of anesthesia, as well as the benefits and alternatives. She has given consent. Coding Level of Care Code New Pt Level 3 (10068) Diagnoses Cervical lymphadenopathy R59.0
[2023-09-01 11:33] VITALS: BMI 37.4
== END 2023-09-01 11:49 | disposition home or self-care (01) ==
PROVIDERS: PCP Family Medicine; Visit Provider Surgery
DX: R59.0 Localized enlarged lymph nodes (principal)
CPT/HCPCS: 99203

== ENCOUNTER → 2023-09-01 11:31 | Outpatient (BNVA) | payer OTHER, SELFPAY | PROVIDERS: PCP Family Medicine; Visit Provider Surgery | DX: R59.0 Localized enlarged lymph nodes (principal) | CPT/HCPCS: 99202 ==

== ENCOUNTER 2023-09-15 14:12 | Outpatient (REF) | payer OTHER, SELFPAY ==
[2023-09-15 18:03] LABS: MANUAL DIFF FLAG NO
[2023-09-15 18:09] LABS: Basophils Percent Auto 0.4 % (0-2); Eosinophils Percent Auto 0.4 % (0-4); Hematocrit 44.9 % (37.0-47.0); Imm Gran Abs Auto 0.03 X10*3/uL (0.00-0.03); Imm Gran Pct Auto 0.4 % (0.0-0.4); Lymphocytes Absolute Auto 3.3 X10*3/uL (1.2-4.9); Lymphocytes Percent Auto 43.9 % (20-40); Mean Corpuscular HGB Conc 33.4 g/dl (31.0-35.0); Mean Corpuscular Hemoglobin 28.7 pg (27.0-33.0); Mean Corpuscular Volume 85.9 fL (80.0-98.0); Mean Platelet Volume 10.4 fL (9.4-12.3); Monocytes Absolute Auto 0.6 X10*3/uL (0.1-1.2); Monocytes Percent Auto 8.2 % (2-11); Neutrophils Absolute Auto 3.5 x10*3/uL (2.0-8.3); Neutrophils Percent Auto 46.7 % (45-73); Platelet Count 209 X10*3/uL (160-400); Red Blood Count 5.23 X10*6/uL (4.20-5.50); Red Cell Distribution Width 13.8 % (11.0-16.0); White Blood Count 7.5 X10*3/uL (4.8-10.8)
[2023-09-15 18:24] LABS: Cholesterol 184 mg/dL (<200); HDL Cholesterol 31 mg/dL (>40); LDL Cholesterol Calculated 112 mg/dL (<100); Triglycerides 209 mg/dL (<150)
[2023-09-15 18:40] LABS: TSH reflex Free T4 2.44 uIU/mL (0.32-4.0)
[2023-09-16 08:44] LABS: Syphilis Screen Nonreactive (Nonreactive)
[2023-09-16 08:59] LABS: ~HepC Num1 0.23 S/CO (0.00-0.79); ~Hepatitis C Antibody Nonreactive (Nonreactive)
[2023-09-16 09:26] LABS: CT PCR NOT DETECTED (Not Detect.); NG PCR NOT DETECTED (Not Detect.)
[2023-09-16 11:14] LABS: Absolute CD4 Count 657 cells/uL (490-1740); Absolute CD8 Count 1501 cells/uL (180-1170); Absolute Lymphocytes 3031 cells/uL (850-3900); CD4 CD8 Ratio 0.44 (0.86-5.00); Percent CD4 Cells 22 % (30-61); Percent CD8 Cells 50 % (12-42)
[2023-09-18 08:58] LABS: TS Negative Control Passed; TS Panel A 1; TS Panel B 0; TS Positive Control Passed; TSpotTB Negative (Negative)
[2023-09-19 14:58] LABS: HCV Log PCR <1.18 NOT DETECTED Log IU/mL (NOT DETECTED); HepC Viral Load <15 NOT DETECTED IU/mL (NOT DETECTED)
[2023-09-19 17:33] LABS: HIV RNA PCR Qn Log Copies 5.55 Log cps/mL
[2023-10-01 16:29] LABS: HIV Genotype DETECTED
== END 2023-09-15 14:13 | disposition home or self-care (01) ==
LOC: HO.CHCLDS 14:12
PROVIDERS: Visit Provider Pediatrics
DX: Z11.1 Encounter for screening for respiratory tuberculosis (principal); Z21 Asymptomatic human immunodeficiency virus [HIV] infection status; E78.00 Pure hypercholesterolemia, unspecified
CPT/HCPCS: 0353U; 80061; 82550; 84443; 85025; 86360; 86481; 86780; 86803; 87522; 87536; 87900

== ENCOUNTER 2023-10-20 15:51 | Outpatient (REF) | payer OTHER, SELFPAY | END 2023-10-20 15:52 | disposition home or self-care (01) | LOC: HO.HHCL 15:51 | PROVIDERS: Visit Provider Internal Medicine | DX: Z13.89 Encounter for screening for other disorder (principal) ==

== ENCOUNTER 2023-10-20 15:53 | Outpatient (REF) | payer OTHER, SELFPAY ==
[2023-10-21 04:33] LABS: HBS Num1 0.74 mIU/mL (0-7.99); HBc Num1 0.11 S/CO (0.00-0.79); HBsAGNum1 0.24 S/CO (0.00-0.99); Hepatitis B Core Antibody Nonreactive (Nonreactive); Hepatitis B Surface Antigen Negative (Negative); ~Hepatitis B Surface Antibody NONREACTIVE (Nonreactive)
[2023-10-28 21:53] LABS: Date Viral Load Collected NG; Dolutegravir Resistance NOT PREDICTED; HIV-1 Bictegravir Resistance NOT PREDICTED; HIV-1 Cabotegravir Resistance NOT PREDICTED; HIV-1 Elvitegravir Resistance NOT PREDICTED; Raltegravir Resistance NOT PREDICTED; Value of Last HIV Viral Load NG copies/mL
[2023-10-30 01:18] LABS: HIV Genotype DETECTED
== END 2023-10-20 15:54 | disposition home or self-care (01) ==
LOC: HO.HHCL 15:53
PROVIDERS: Visit Provider Internal Medicine
DX: Z13.89 Encounter for screening for other disorder (principal)
CPT/HCPCS: 36415; 86704; 86706; 87340; 87900; 87901; 87906

== ENCOUNTER 2023-12-02 15:06 | Outpatient (REF) | payer OTHER, SELFPAY ==
[2023-12-05 08:37] LABS: HBS Num1 0.46 mIU/mL (0-7.99); HBc Num1 0.16 S/CO (0.00-0.79); Hepatitis B Core Antibody Nonreactive (Nonreactive); ~Hepatitis B Surface Antibody NONREACTIVE (Nonreactive)
[2023-12-13 18:53] LABS: HIV Genotype DETECTED
[2023-12-14 01:54] LABS: Date Viral Load Collected NG; Dolutegravir Resistance NOT PREDICTED; HIV-1 Bictegravir Resistance NOT PREDICTED; HIV-1 Cabotegravir Resistance NOT PREDICTED; HIV-1 Elvitegravir Resistance NOT PREDICTED; Raltegravir Resistance NOT PREDICTED; Value of Last HIV Viral Load NG copies/mL
== END 2023-12-02 15:07 | disposition home or self-care (01) ==
LOC: HO.HHCL 15:06
PROVIDERS: Visit Provider Internal Medicine
DX: B20 Human immunodeficiency virus [HIV] disease (principal)
CPT/HCPCS: 36415; 86704; 86706; 87900; 87901; 87906

== ENCOUNTER 2023-12-28 15:51 | Outpatient (REF) | payer MEDICAID, SELFPAY ==
[2023-12-28 17:54] LABS: MANUAL DIFF FLAG NO
[2023-12-28 18:20] LABS: Basophils Percent Auto 0.4 % (0-2); Eosinophils Absolute Auto 0.1 X10*3/uL (0.0-0.4); Eosinophils Percent Auto 1.2 % (0-4); Hemoglobin 14.7 g/dl (12.0-16.0); Imm Gran Abs Auto 0.02 X10*3/uL (0.00-0.03); Imm Gran Pct Auto 0.2 % (0.0-0.4); Lymphocytes Absolute Auto 3.8 X10*3/uL (1.2-4.9); Lymphocytes Percent Auto 46.1 % (20-40); Mean Corpuscular HGB Conc 34.2 g/dl (31.0-35.0); Mean Corpuscular Hemoglobin 29.3 pg (27.0-33.0); Mean Corpuscular Volume 85.7 fL (80.0-98.0); Mean Platelet Volume 11.5 fL (9.4-12.3); Monocytes Absolute Auto 0.6 X10*3/uL (0.1-1.2); Neutrophils Absolute Auto 3.7 x10*3/uL (2.0-8.3); Neutrophils Percent Auto 45.1 % (45-73); Platelet Count 235 X10*3/uL (160-400); Red Blood Count 5.02 X10*6/uL (4.20-5.50); Red Cell Distribution Width 13.3 % (11.0-16.0); White Blood Count 8.2 X10*3/uL (4.8-10.8)
[2023-12-28 18:21] LABS: Alanine Aminotransferase 32 U/L (0-31); Albumin Level 4.3 g/dL (3.5-5.0); Alkaline Phosphatase 97 U/L (39-117); Anion Gap 13 (12-20); Aspartate Amino Transferase 23 U/L (5-31); Bilirubin Total 0.4 mg/dL (0.0-1.0); Blood Urea Nitrogen 14 mg/dL (9-16); Calcium 9.9 mg/dL (8.4-10.2); Carbon Dioxide 24 mmol/L (22-29); Chloride 107 mmol/L (96-108); Estimated Glomerular Filt Rate > 60; Glucose Random 112 mg/dL (60-115); Potassium 3.7 mmol/L (3.3-5.1); Sodium 140 mmol/L (135-145); Total Protein 7.9 g/dL (6.5-8.0)
[2023-12-29 04:07] LABS: Hepatitis A Antibody IgM 0.26 Index (0-0.79); ~Hepatitis A Antibody IgM Nonreactive (Nonreactive)
[2023-12-29 04:26] LABS: HBS Num1 0.65 mIU/mL (0-7.99); HBc Num1 0.32 S/CO (0.00-0.79); HBsAGNum1 0.32 S/CO (0.00-0.99); HIV Num 1 458.31 S/CO (0.00-0.99); Hepatitis B Core Antibody Nonreactive (Nonreactive); Hepatitis B Surface Antigen Negative (Negative); ~HepC Num1 0.22 S/CO (0.00-0.79); ~Hepatitis B Surface Antibody NONREACTIVE (Nonreactive); ~Hepatitis C Antibody Nonreactive (Nonreactive)
[2023-12-29 05:37] LABS: HIV AB/AG Reactive (Nonreactive)
[2023-12-30 21:23] LABS: HIV 1 Antibody POSITIVE (NEGATIVE); HIV 2 Antibody NEGATIVE (NEGATIVE)
[2024-01-09 18:58] LABS: HIV Genotype DETECTED
== END 2023-12-28 15:52 | disposition home or self-care (01) ==
LOC: HO.HHCL 15:51
PROVIDERS: Visit Provider Internal Medicine
DX: B20 Human immunodeficiency virus [HIV] disease (principal)
CPT/HCPCS: 36415; 80053; 82550; 85025; 86359; 86360; 86701; 86702; 86704; 86706; 86709; 86803; 87340; 87389; 87900; 87901

== ENCOUNTER 2024-03-01 08:35 | Outpatient (REF) | payer MEDICAID, SELFPAY ==
[2024-03-01 11:02] LABS: MANUAL DIFF FLAG NO
[2024-03-01 11:15] LABS: Basophils Percent Auto 0.3 % (0-2); Eosinophils Absolute Auto 0.1 X10*3/uL (0.0-0.4); Eosinophils Percent Auto 1.3 % (0-4); Hematocrit 45.6 % (42.0-52.0); Hemoglobin 15.4 g/dl (14.0-18.0); Imm Gran Abs Auto 0.04 X10*3/uL (0.00-0.03); Imm Gran Pct Auto 0.5 % (0.0-0.4); Lymphocytes Absolute Auto 3.9 X10*3/uL (1.2-4.9); Mean Corpuscular HGB Conc 33.8 g/dl (31.0-36.0); Mean Corpuscular Hemoglobin 28.8 pg (27.0-33.0); Mean Corpuscular Volume 85.2 fL (80.0-98.0); Monocytes Absolute Auto 0.6 X10*3/uL (0.1-1.2); Monocytes Percent Auto 7.3 % (2-11); Neutrophils Percent Auto 39.6 % (45-73); Platelet Count 229 X10*3/uL (160-400); Red Blood Count 5.35 X10*6/uL (4.60-5.80); Red Cell Distribution Width 13.7 % (11.0-16.0); White Blood Count 7.7 X10*3/uL (4.8-10.8)
[2024-03-01 11:36] LABS: Alanine Aminotransferase 77 U/L (0-40); Albumin Level 4.4 g/dL (3.5-5.0); Alkaline Phosphatase 91 U/L (39-117); Anion Gap 12 (12-20); Aspartate Amino Transferase 43 U/L (5-37); Bilirubin Total 0.6 mg/dL (0.0-1.0); Blood Urea Nitrogen 12 mg/dL (9-16); Calcium 10.1 mg/dL (8.4-10.2); Carbon Dioxide 25 mmol/L (22-29); Chloride 107 mmol/L (96-108); Estimated Glomerular Filt Rate > 60; Glucose Random 106 mg/dL (60-115); Potassium 3.8 mmol/L (3.3-5.1); Sodium 140 mmol/L (135-145); Total Protein 7.9 g/dL (6.5-8.0)
[2024-03-02 13:58] LABS: HIV RNA PCR Qn Copies 61 copies/mL (NOT DETECTED); HIV RNA PCR Qn Log Copies 1.79 (NOT DETECTED)
[2024-03-07 16:43] LABS: Absolute CD3 Count 2392 cells/uL (840-3060); Absolute CD4 Count 1192 cells/uL (490-1740); Absolute CD8 Count 1181 cells/uL (180-1170); Absolute Lymphocytes 3776 cells/uL (850-3900); CD4 CD8 Ratio 1.01 (0.86-5.00); Percent CD3 Cells 63 % (57-85); Percent CD4 Cells 32 % (30-61); Percent CD8 Cells 31 % (12-42)
== END 2024-03-01 08:36 | disposition home or self-care (01) ==
LOC: HO.HHCL 08:35
PROVIDERS: Visit Provider Internal Medicine
DX: Z21 Asymptomatic human immunodeficiency virus [HIV] infection status (principal)
CPT/HCPCS: 36415; 80053; 82550; 85025; 86359; 86360; 87536

== ENCOUNTER 2024-04-23 12:22 | Outpatient (AMB) | payer MEDICAID, SELFPAY ==
[2024-04-23 12:26] VITALS: BP 119/70; PULSE 74; BMI 38.7
--- NOTE | 2024-04-23 12:26 | A.OFFVIS_ITS ---
Vital Signs 04/23/24 12:26 Height 5 ft 7 in Weight 247 lb BMI 38.7 BP 119/70 Blood Pressure Location Lt brachial Position Sitting Pulse 74 Intake Visit Reasons: GERD HP Intake Note: Patient in office today in follow up of GERD. CC: Patient c/o acid reflux, heartburn, epigastric pain, constipation alternating with diarrhea, N/V sometimes, and rectal pain. PT also c/o mid abdominal pain, and left sided neck pain. Patient is very upset because the Pt was seen back in July and states that he was going to receive a call for EGD and still waiting. Pt states he takes an injection and clonidine but does not know the name of the injection or dose of clonidine. 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 Reports sx ongoing x 1 year assoc with nausea vomiting and regurgitation. Emesis is bilous sometimes. Pt also reports reduced appetite due to L side neck pain that causes difficulty swallowing. Sometimes also has diarrhea. No blood in stool. Has hemorrhoids that are painful. Of note, the abd pain that she reports is in two different locations i) epigastric/retrosternal and ii)much lower, suprapubic. Also has difficulty urination and has frequent incontinence. 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 Alcohol intake: current Alcohol intake frequency: a few times a week Alcohol type: beer Substance Use Type: Marijuana Current occupational status: student Review of Systems Const All systems reviewed & are unremarkable except as noted in HPI and below Physical Exam Vital Signs: Last Vital Signs Pulse 74 04/23/24 12:26 BP 119/70 04/23/24 12:26 BMI result Body Mass Index 38.7 No apparent distress Nonicteric Abdomen soft, nondistended, tenderness in suprapubic region Alert and oriented x3, normal gait Assessment & Plan Assessment & Plan (1) GERD (gastroesophageal reflux disease): Code(s): K21.9 - Gastro-esophageal reflux disease without esophagitis Category: Medical (2) Elevated LFTs: Code(s): R79.89 - Other specified abnormal findings of blood chemistry Category: Medical (3) Dysuria: Code(s): R30.0 - Dysuria Category: Medical Plan 1. GI sx: Consistent with GERD. Ddx include celiac, IBD, PUD, gallstones. Plan: - Labs as below - US Abd - Barium swallow - EGD - Famotidine 20 BID 2. Dysuria: Plan: - UA ordered - Pt counseled to stay hydrated - If + will likely need Abx - will defer to PCP Follow up after EGD Orders: Orders FL barium swallow Today K21.9 - Gastro-esophageal reflux disease without esophagitis TSH reflex Free T4 Today R10.9 - Unspecified abdominal pain C Reactive Protein Today R10.9 - Unspecified abdominal pain Calprotectin, Fecal Today R10.9 - Unspecified abdominal pain UA and rflx microscopic Today R30.0 - Dysuria US abdomen complete Today R79.89 - Other specified abnormal findings of blood chemistry Comprehensive Met. Panel Today R10.9 - Unspecified abdominal pain Immunoglobulin G Today R10.9 - Unspecified abdominal pain Immunoglobulin A Today R10.9 - Unspecified abdominal pain Transglutaminase IgA Today R10.9 - Unspecified abdominal pain Medications: New famotidine 20 mg PO BID 180 tabs 0RF 90 days Coding Level of Care Code Est Pt Level 4 (93946) Diagnoses GERD (gastroesophageal reflux disease) K21.9 Elevated LFTs R79.89 Dysuria R30.0
== END 2024-04-23 14:10 | disposition home or self-care (01) ==
PROVIDERS: PCP Family Medicine; Visit Provider Internal Medicine
DX: K21.9 Gastro-esophageal reflux disease without esophagitis (principal); R79.89 Other specified abnormal findings of blood chemistry; R30.0 Dysuria
CPT/HCPCS: 99214

== ENCOUNTER 2024-04-23 12:22 | Outpatient (REF) | payer MEDICAID, SELFPAY ==
[2024-04-23 15:37] LABS: Appearance Urine Clear; Color Urine Yellow; Glucose Urine UA Negative (Negative); Leukocyte Esterase Urine Negative (Negative); Nitrite Urine Negative (Negative); PH 5.5 (5.0-9.0); Specific Gravity - Urine >= 1.030 (1.005-1.025); Urine Blood Negative (Negative); Urine Ketones Negative (Negative); Urine Protein Trace mg/dL (Neg-Trace)
[2024-04-23 18:01] LABS: Albumin Level 4.9 g/dL (3.5-5.0); Anion Gap 12 (12-20); Aspartate Amino Transferase 44 U/L (5-37); Bilirubin Total 0.5 mg/dL (0.0-1.0); Blood Urea Nitrogen 11 mg/dL (9-16); C Reactive Protein 1.36 mg/dL (< or = 0.50); Calcium 9.7 mg/dL (8.4-10.2); Carbon Dioxide 28 mmol/L (22-29); Chloride 106 mmol/L (96-108); Estimated Glomerular Filt Rate > 60; Glucose Random 94 mg/dL (60-115); Potassium 3.9 mmol/L (3.3-5.1); Sodium 142 mmol/L (135-145); Total Protein 8.5 g/dL (6.5-8.0)
[2024-04-23 20:19] LABS: Alanine Aminotransferase 82 U/L (0-40); Alkaline Phosphatase 102 U/L (39-117)
[2024-04-23 23:42] LABS: TSH reflex Free T4 4.51 uIU/mL (0.32-4.0)
[2024-04-24 00:22] LABS: Free T4 (Free Thyroxine) 0.94 ng/dL (0.71-1.85)
[2024-04-25 01:59] LABS: Immunoglobulin A 214 mg/dL (47-310); Immunoglobulin G 1633 mg/dL (600-1640)
[2024-04-26 14:03] LABS: Transglutaminase IgA <1.0 U/mL
== END 2024-04-23 12:23 | disposition home or self-care (01) ==
LOC: HO.LAB 12:22
PROVIDERS: Visit Provider Internal Medicine
DX: R10.9 Unspecified abdominal pain (principal); R30.0 Dysuria; R79.89 Other specified abnormal findings of blood chemistry
CPT/HCPCS: 36415; 80053; 81003; 82784; 84439; 84443; 86140; 86364; 99212

== ENCOUNTER 2024-05-15 08:33 | Outpatient (REF) | payer MEDICAID, SELFPAY ==
[2024-05-15 09:06] LABS: MANUAL DIFF FLAG NO
[2024-05-15 09:37] LABS: Basophils Absolute Auto 0.1 X10*3/uL (0.0-0.2); Basophils Percent Auto 0.5 % (0-2); Eosinophils Absolute Auto 1.3 X10*3/uL (0.0-0.4); Eosinophils Percent Auto 12.4 % (0-4); Hematocrit 45.9 % (42.0-52.0); Hemoglobin 15.6 g/dl (14.0-18.0); Imm Gran Abs Auto 0.08 X10*3/uL (0.00-0.03); Imm Gran Pct Auto 0.7 % (0.0-0.4); Lymphocytes Absolute Auto 4.9 X10*3/uL (1.2-4.9); Lymphocytes Percent Auto 46.2 % (20-40); Mean Corpuscular Hemoglobin 28.3 pg (27.0-33.0); Mean Corpuscular Volume 83.3 fL (80.0-98.0); Mean Platelet Volume 10.4 fL (9.4-12.4); Monocytes Absolute Auto 0.6 X10*3/uL (0.1-1.2); Monocytes Percent Auto 5.2 % (2-11); Neutrophils Absolute Auto 3.7 x10*3/uL (2.0-8.3); Platelet Count 218 X10*3/uL (160-400); Red Blood Count 5.51 X10*6/uL (4.60-5.80); White Blood Count 10.7 X10*3/uL (4.8-10.8)
[2024-05-15 10:25] LABS: Alanine Aminotransferase 94 U/L (0-40); Albumin Level 4.8 g/dL (3.5-5.0); Alkaline Phosphatase 110 U/L (39-117); Anion Gap 10 (12-20); Aspartate Amino Transferase 42 U/L (5-37); Bilirubin Total 0.4 mg/dL (0.0-1.0); Blood Urea Nitrogen 11 mg/dL (9-16); Calcium 9.8 mg/dL (8.4-10.2); Carbon Dioxide 26 mmol/L (22-29); Chloride 108 mmol/L (96-108); Cholesterol 217 mg/dL (<200); Estimated Glomerular Filt Rate > 60; Glucose Random 110 mg/dL (60-115); HDL Cholesterol 37 mg/dL (>40); LDL Cholesterol Calculated 131 mg/dL (<100); Potassium 4.2 mmol/L (3.3-5.1); Sodium 140 mmol/L (135-145); Total Protein 8.2 g/dL (6.5-8.0); Triglycerides 249 mg/dL (<150)
[2024-05-15 10:47] LABS: Syphilis Screen Nonreactive (Nonreactive)
[2024-05-15 11:39] LABS: Reflex LDLD? No
[2024-05-16 18:03] LABS: HIV RNA PCR Qn Copies 38 copies/mL (NOT DETECTED); HIV RNA PCR Qn Log Copies 1.58 (NOT DETECTED)
[2024-05-22 17:18] LABS: Calprotectin, Fecal 10 mcg/g
== END 2024-05-15 08:34 | disposition home or self-care (01) ==
LOC: HO.LAB 08:33
PROVIDERS: Internal Medicine; Visit Provider Internal Medicine
DX: Z21 Asymptomatic human immunodeficiency virus [HIV] infection status (principal); R10.9 Unspecified abdominal pain
CPT/HCPCS: 36415; 80053; 80061; 82550; 83993; 85025; 86780; 87536

== ENCOUNTER 2024-06-14 10:34 | Outpatient (REF) | payer MEDICAID, SELFPAY ==
--- NOTE | ~2024-06-14 | US_ITS ---
CLINICAL HISTORY: R79.89 - Other specified abnormal findings of blood chemistry US abdomen complete Comparison: CT/SR - CT ABDOMEN PELVIS WO IV CON - 06/08/23 19:24 EST Findings: The visualized pancreas is normal. The aorta and inferior vena cava are normal caliber. The liver is normal in size and increased in echotexture with regions of fatty sparing. There is no intrahepatic bile duct dilatation. The common duct is 3 mm in diameter. The gallbladder is normal. There is no sonographic Trevzio sign. The main portal vein is antegrade. The right kidney is 12.4 cm in length. The left kidney is 11.3 cm in length. The spleen is normal. No ascites. IMPRESSION: Hepatic steatosis. No acute process. This document has been electronically signed by: Atul Bhat MD on 06/14/2024 13:22:47
--- OUTSIDE RECORDS SUMMARY | 2024-06-14 11:17 | XMS_ITS | Clinical Summary ---
Author Organization [facility] ity Address [address] [place] [address] Care Team Providers Care Manufacturing Director Name Role Phone Unavailable Primary Care Provider Unavailabl e Social History Tobacco Use Types Packs/Day Years Used Date Smoking Tobacco: Never Assessed Comments Unknown Sex and Gender Information Value Date Recorded Sex Assigned at Not on file Legal Sex Female 8:28 PM EST Gender Identity Not on file Sexual Orientation Not on file Plan of Treatment Health Maintenance Due Date Last Done Comments DTaP,Tdap,and Td Vaccines (1 - Tdap) 2014 Hepatitis B Vaccines (1 of 3 - 19+ 3-dose series) 2014 Cervical Cancer Screening: P ap Smear 2016 Depression Screening 05/27/2023 HIV Screening 05/27/2023 Hepatitis C Screening 05/27/2023 Social Influencers of Health Screening 05/27/2023 COVID-19 Vaccine ( - 2023-2 5 season) 2024 Influenza Vaccine (#1) 2024 HIB Vaccines Aged Out No longer eligi ble based on patient's age to complete this topic HPV Vaccines Aged Out No longer eligi ble based on patient's age to complete this topic Hepatitis A Vaccines Aged Out No long er eligible based on patient's age to complete this topic IPV Vaccines Aged Out No longer eligi ble based on patient's age to complete this topic MMR Vaccines Aged Out No longer eligi ble based on patient's age to complete this topic Meningococcal ACWY Vaccine Aged Out N o longer eligible based on patient's age to complete this topic Meningococcal B Vacine Aged Out No lo nger eligible based on patient's age to complete this topic Pneumococcal Vaccine: Pediat rics (0 to 5 Years) and At-Risk Patients (6 to 64 Years) Aged Out No longer eligible b ased on patient's age to complete this topic RSV Immunization Patients Un jani 20 months Aged Out No longer eligible b ased on patient's age to complete this topic Varicella Vaccines Aged Out No longer eligible based on patient's age to complete this topic
--- OUTSIDE RECORDS SUMMARY | 2024-06-14 11:17 | XMS_ITS | Data Portability ---
Author Organization [place] - [facility], Allergy Address [address] [place] [phone] Care Team Providers Care Stave Block Splitter Name Role Phone AI MATTHEWS Primary Care Provider Assessment No assessment recorded. Plan of Treatment Reminders Order Date Submit Date Provider Last Modified By Organization Details Last Modified Time Details Appointments Test Results 15 2024 11:30A M TING FRANCO MD Not available Not available Not available Lab None recorded. Referral None recorded. Procedures None recorded. Surgeries None recorded. Imaging CT, neck, soft tissue, w/ contrast 2023 024 [facility] Radiology (Scheduling, Multiplte Sites), [address] [place] [address], [address], 04/30/2024 14:58:47 US, thyroid - please perform dedicated thyroid ultrasoun d 2023 024 [facility] Radiology (Scheduling, Multiplte Sites), [address] [place] [address], [address], 04/30/2024 11:24:18 Medication Orders None recorded. Patient TargetsNo targets recorded. Patient InstructionsNo instructions recorded. Reason for Referral None Reported. Results Created Date Observation Date Name Description Value Unit Range Abnormal Flag Note LastModifiedBy Organization Detail LastModifiedTime 04/30/20 24 04/30/2024 US, thyro id No observ ation record ed. [email or web address] [address] [place], [address], 05/07/2024 09:10:25 04/30/20 24 04/30/2024 CT, neck, soft tissu e, w/ contr ast No observ ation record ed. [facility] [address] [place], [address], 05/07/2024 09:10:26 06/01/19 25 06/01/2024 fine needl e aspir ation , ultra sound guide d, thyro id (PROC ) No observ ation record ed. [facility] (Intervention al Radiology) [address] [place], [address], 06/05/2024 11:30:21 Result Notes None recorded. Problems Name Problem SNOMED Code Status Onset Date Resolution Date Notes Provider Name and Address Organization Details Recorded Time Mass of neck 682244111 Active 2023 Localized swelling, mass and lump, neck; Note: Date Diagnosed: 09/15/2023 1:02 PM (R22.1) Not Available [facility] 4 03:29:14 Neck swelling 892768727 Active 2023 Localized swelling, mass and lump, neck; Note: Date Diagnosed: 09/15/2023 1:02 PM (R22.1) Not Available 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 4 03:29:14 Cervical lymphaden opathy 811174157 Active 2023 CHRIS TAYLOR MD [address] [place] [address],[place] [address], [place], [phone] , [place] - [facility] 4 16:53:50 Thyroid nodule 424627532 Active 2023 CHRIS TAYLOR MD [address] [place] [address],[place] [address], [place], [phone] , [place] - [facility] 4 16:57:22 Problem Notes None recorded. Procedures Surgical History Date Name Laterality Status Provider Name and Address Organization Details Recorded Time 03/21/2024 FFL_RE completed CHRIS TAYLOR MD [address], [phone], [place] - [facility] 03/21/2024 16:53:43 Imaging Results Imaging Date Name Status LastModified by Organiz ation Details LastModified Time 04/30/2024 US, thyroid completed [facility] [address] [place], [address], 05/07/2024 09:10:25 04/30/2024 CT, neck, soft tissue, w/ contrast completed [address], [address], 05/07/2024 09:10:26 06/01/2024 fine needle aspiration, ultrasound guided, thyroid (PROC) completed [facility] (Interventional Radiology) [address] [place] [address], [address], 06/05/2024 11:30:21 Procedure Notes None recorded. Medical Equipment None Reported. Allergies No known drug allergies Medications Name Sig Start Date Stop Date Status Note LastModified by Organization Details LastModified Time amoxicillin 500 mg capsule TAKE 1 CAPSULE BY MOUTH EVERY 8 HOURS FOR 7 DAYS 03/21 completed Not Available Not Available Not Available clonidine HCl 0.1 mg tablet TAKE 1 TABLET BY MOUTH TWICE DAILY NEEDED ANXIETY active Not Available Not Available No t Available azithromyci n 250 mg tablet TAKE 2 TABLETS BY MOUTH ON DAY 1, THEN TAKE 1 TABLET DAILY ON DAYS 2-5 03/21 completed Not Available Not Available Not Available prednisone 20 mg tablet TAKE 1 TABLET BY MOUTH EVERY DAY FOR 5 DAYS 03/21 completed Not Available Not Available Not Available melatonin 3 mg tablet TAKE 1 TABLET BY MOUTH ONCE DAILY AT BEDTIME 03/21 completed Not Available Not Available Not Available tretinoin 0.05 % topical cream APPLY TOPICALLY TO THE AFFECTED AREA(S) OF SKIN EVERY NIGHT DIRECTED 03/21 completed Not Available Not Available Not Available pantoprazol e 20 mg tablet,jalen yed release TAKE 1 TABLET BY MOUTH TWICE DAILY NEEDED FOR HEARTBURN active Not Available Not Available No t Available famotidine 20 mg tablet TAKE 1 TABLET BY MOUTH TWICE DAILY 03/21 completed Not Available Not Available Not Available ibuprofen 600 mg tablet TAKE 1 TABLET BY MOUTH EVERY 6 HOURS NEEDED FOR MILD PAIN 03/21 completed Not Available Not Available Not Available levofloxaci n 750 mg tablet TAKE 1 TABLET BY MOUTH EVERY DAY 03/21 completed Not Available Not Available Not Available doxycycline hyclate 100 mg tablet TAKE 1 TABLET (100 MG TOTAL) BY MOUTH 2 TIMES A DAY FOR 14 DAYS. 03/21 completed Not Available Not Available Not Available Ventolin HFA 90 mcg/actuati on aerosol inhaler INHALE 2 PUFFS BY MOUTH EVERY 4 HOURS NEEDED FOR WHEEZING 03/21 completed Not Available Not Available Not Available oxycodone 5 mg tablet TAKE 1 TABLET BY MOUTH EVERY 4 HOURS NEEDED FOR PAIN FOR UP TO 3 DAYS. MAX DAILY AMOUNT: 30 MG 03/21 completed Not Available Not Available Not Available aripiprazol e 10 mg tablet TAKE 1 TABLET BY MOUTH EVERY MORNING 03/21 completed Not Available Not Available Not Available aripiprazol e 15 mg tablet TAKE 1 TABLET BY MOUTH ONCE DAILY 03/21 completed Not Available Not Available Not Available Biktarvy 50 mg-200 mg-25 mg tablet TAKE 1 TABLET BY MOUTH EVERY MORNING 03/21 completed Not Available Not Available Not Available Cabenuva 600 mg/3 mL-900 mg/3 mL IM suspension, extended release INJECT 6 ML INTRAMUSC ULARLY EVERY 2 MONTHS active Not Available Not Available No t Available Vitals Date Recorded Body height Body mass index (BMI) Body weight Provider Name and Address Organization Details Last Updated DateTime 03/21/2024 170.18 cm 39.2 kg/m2 695311.09 g Angie Hughes [place] - [facility] 03/21/2024 16:30:19 Social History None recorded. Functional Status None recorded. Mental Status None recorded. Family History Nothing Reported. Medical History No medical history recorded. Gynecological HistoryNo gynecological history recorded. Obstetrics History GPAL:G 0 P 0 0 0 0 Past Encounters Encounter ID Performer Location Encounter Start Date Encounter Closed Date Diagnosis/Indication Diagnosis SNOMED-CT Code Diagnosis ICD10 Code Diagnosis Note [id number] CHRIS TAYLOR MD [facility] [address] [place] [address] 03/21/2024 16:20:19 03/21/2024 16:39:20 Cervical lymphadenopathy 704142710 R59.0 I don't palpate any enlarged lymph nodes. Perhaps they were reactive due to prior liposcutio n. Will order a CT neck with contrast to evaluate for any concerning adenopathy . Thyroid nodule 040112155 E04.1 I recommend a dedicated ultrasound which likely will need to be followed by an USGFNA. Health Concerns Section Related Observation LastModified by Organization Detai ls LastModified Time None Recorded Concern Status LastModified by Organization Details LastModified Time None Recorded Advance Directives Directive None Recorded Payers Encounter Date Sequence Insurance Name Policy Number Policy Yoder Covered Member ID Yoder Member ID Guarantor Name 03/21/2024 1 [place] [facility] Lilianagregory Gamez [id number] Liliana Gamez Notes Date Note Type Note Provider Name and Address Organization Details Recorded Time 03/21/2024 text/html She uses she/her pronouns Hx of cervical lymphadenopathy with abnormal lymph nodes on prior US. Was seen by Dr. Candelaria and then was lost to f/u. Incidental TR5 thyroid nodule was also seen on neck US. Hx of liposuction to neck. She feels lymph nodes are still enlarged. CHRIS TAYLOR MD [address] [place] [address], [phone], [place] - [facility] 03/21/2024 17:01:02 OBGyn Episode No OBEpisode recorded.
== END 2024-06-14 10:35 | disposition home or self-care (01) ==
LOC: HO.US 10:34
PROVIDERS: Visit Provider Internal Medicine
DX: R79.89 Other specified abnormal findings of blood chemistry (principal)
CPT/HCPCS: 76700

== ENCOUNTER → 2024-06-14 10:36 | Outpatient (BNV) | payer MEDICAID, SELFPAY | PROVIDERS: Visit Provider Radiology Vascular & Interventional Radiology | DX: K76.0 Fatty (change of) liver, not elsewhere classified (principal) | CPT/HCPCS: 76700 ==

== ENCOUNTER 2024-06-20 09:33 | Outpatient (REF) | payer MEDICAID, SELFPAY ==
--- OUTSIDE RECORDS SUMMARY | 2024-06-20 09:53 | XMS_ITS | Clinical Summary ---
Author Organization [facility] ity Address [address] [place] [address] Care Team Providers Care Supervisor Ship Maintenance Services Name Role Phone Unavailable Primary Care Provider [...]
--- OUTSIDE RECORDS SUMMARY | 2024-06-20 09:53 | XMS_ITS | Data Portability ---
Author Organization [place] - [facility], Allergy Address [address] [place] [phone] Care Team Providers Care Mouthpiece Maker Name Role Phone AI MATTHEWS Primary Care [...] neck, soft tissue, w/ contrast 2023 024 [facility] Radiology (Scheduling, Multiplte Sites), [address] [place] [address], [address], 04/30/2024 14:58:47 US, thyroid - please perform dedicated thyroid ultrasoun d 2023 024 [facility] Radiology (Scheduling, Multiplte Sites), [address] [place] [address], [address], 04/30/2024 11:24:18 Medication Orders None recorded. Patient TargetsNo targets recorded. Patient InstructionsNo instructions recorded. Reason for Referral None Reported. Results Created Date Observation Date Name Description Value Unit Range Abnormal Flag Note LastModifiedBy Organization Detail LastModifiedTime 04/30/20 24 04/30/2024 US, thyro id No observ ation record ed. [facility] [address] [place], [address], 05/07/2024 09:10:25 04/30/20 24 04/30/2024 CT, neck, soft tissu e, w/ contr ast No observ ation record ed. [facility] [address] [place], [address], 05/07/2024 09:10:26 06/01/19 25 06/01/2024 fine needl e aspir ation , ultra sound guide d, thyro id (PROC ) No observ ation record ed. [facility] (Intervention al Radiology) [address] [place], [address], 06/05/2024 11:30:21 Result Notes None recorded. Problems Name Problem SNOMED Code Status Onset Date Resolution Date Notes Provider Name and Address Organization Details Recorded Time Mass of neck 256870734 Active 2023 Localized swelling, mass and lump, neck; Note: Date Diagnosed: 09/15/2023 1:02 PM (R22.1) Not Available [facility] 4 03:29:14 Neck swelling 810548298 Active 2023 Localized swelling, mass and lump, neck; Note: Date Diagnosed: 09/15/2023 1:02 PM (R22.1) Not Available [facility] 4 03:29:14 Neoplasm of uncertain behavior of thyroid gland 65930732 Active 2023 Neoplasm of uncertain behavior of thyroid gland; Note: Date Diagnosed: 09/15/2023 1:02 PM (D44.0) Not Available [facility] 4 03:29:14 Cervical lymphaden opathy 940096353 Active 2023 CHRIS TAYLOR MD [address] [place] [address],[place] [address], [place], [phone] , [place] - [facility] 4 16:53:50 Thyroid nodule 268174871 Active 2023 CHRIS TAYLOR MD [address] [place] [address],[place] [address], [place], [phone] , [place] - [facility] 4 16:57:22 Problem Notes None recorded. Procedures Surgical History Date Name Laterality Status Provider Name and Address Organization Details Recorded Time 03/21/2024 FFL_RE completed CHRIS TAYLOR MD [address], [address], [place] - [facility] 03/21/2024 16:53:43 Imaging Results Imaging Date Name Status LastModified by Organiz ation Details LastModified Time 04/30/2024 US, thyroid completed [facility] [address] [place], [address], 05/07/2024 09:10:25 04/30/2024 CT, neck, soft tissue, w/ contrast completed [address], [address], 05/07/2024 09:10:26 06/01/2024 fine needle aspiration, ultrasound guided, thyroid (PROC) completed [facility] (Interventional Radiology) [address] [place] [address], [address], 06/05/2024 11:30:21 Procedure Notes None recorded. Medical [...] Updated DateTime 03/21/2024 170.18 cm 39.2 kg/m2 010974.09 g Angie Hughes [place] - [facility] 03/21/2024 16:30:19 Social History None recorded. Functional Status None recorded. Mental Status None recorded. Family History Nothing Reported. Medical History No medical history recorded. Gynecological HistoryNo gynecological history recorded. Obstetrics History GPAL:G 0 P 0 0 0 0 Past Encounters Encounter ID Performer Location Encounter Start Date Encounter Closed Date Diagnosis/Indication Diagnosis SNOMED-CT Code Diagnosis ICD10 Code Diagnosis Note [id number] CHRIS TAYLOR MD [facility] [address] [place] [address] 03/21/2024 16:20:19 03/21/2024 16:39:20 Cervical lymphadenopathy 492773611 R59.0 I don't palpate any enlarged lymph nodes. Perhaps they were reactive due to prior liposcutio n. Will order a CT neck with contrast to evaluate for any concerning adenopathy . Thyroid nodule 164425901 E04.1 I recommend a dedicated ultrasound which [...] Member ID Guarantor Name 03/21/2024 1 [place] [facility] Lilianagregory Gamez [id number] Liliana Gamez Notes Date Note Type Note [...] nodes are still enlarged. CHRIS TAYLOR MD [address] [place] [address], [phone], [place] - [facility] 03/21/2024 17:01:02 OBGyn Episode No OBEpisode recorded.
[2024-06-20 11:35] LABS: INTERNATIONAL NORM RATIO 0.9 (0.9-1.1)
[2024-06-20 11:53] LABS: Alanine Aminotransferase 78 U/L (0-31); Albumin Level 4.6 g/dL (3.5-5.0); Alkaline Phosphatase 103 U/L (39-117); Amphetamine Screen Urine Not Detected (Not Detect); Aspartate Amino Transferase 46 U/L (5-31); Barbiturates, Urine Not Detected (Not Detect); Benzodiazepines Screen Urine Not Detected (Not Detect); Bilirubin Direct 0.1 mg/dL (0.0-0.5); Bilirubin Total 0.4 mg/dL (0.0-1.0); Buprenorphine Scr Not Detected (Not Detect); Cannabinoid Screen Urine POSITIVE (Not Detect); Cocaine Screen Urine Not Detected (Not Detect); Fentanyl, urine Not Detected (Not Detect); Iron 70 mcg/dL (30-160); Methadone Screen, Urine Not Detected (Not Detect); Opiate Screen Urine Not Detected (Not Detect); Oxycodone Screen Urine Not Detected (Not Detect); Percent Iron Saturation 23 % (15-50); Phencyclidine Screen Urine Not Detected (Not Detect); Total Iron Binding Capacity 308 mcg/dL (228-428); Total Protein 8.3 g/dL (6.5-8.0); Unsaturated Iron Binding 238 ug/dL
[2024-06-20 12:10] LABS: Ferritin 99 ng/mL (10-122)
[2024-06-22 10:18] LABS: Alpha Fetoprotein 2.6 ng/mL
[2024-06-22 15:03] LABS: Anti Nuclear Antibody Screen NEGATIVE (NEGATIVE)
[2024-06-24 00:03] LABS: Smooth Muscle Antibody <20 U (<20)
[2024-06-24 02:54] LABS: Alpha 1 Anti-trypsin 138 mg/dL (83-199); Ceruloplasmin 26 mg/dL (14-48)
[2024-06-24 21:33] LABS: Liver Kidney Microsomal Ab <=20.0 U (<=20.0)
[2024-06-25 11:23] LABS: Mitochondrial Antibodies NEGATIVE (NEGATIVE)
[2024-06-26 10:51] LABS: Phosphatidylethanol 16:0-18:2 NEGATIVE
== END 2024-06-20 09:34 | disposition home or self-care (01) ==
LOC: HO.HHCL 09:33
PROVIDERS: Internal Medicine; Visit Provider Registered Nurse
DX: R79.89 Other specified abnormal findings of blood chemistry (principal); F33.3 Major depressive disorder, recurrent, severe with psychotic symptoms
CPT/HCPCS: 36415; 80076; 80307; 80321; 82103; 82105; 82390; 82728; 83540; 85610; 86015; 86038; 86376; 86381

== ENCOUNTER 2024-07-13 08:45 | Outpatient (REF) | payer MEDICAID, SELFPAY ==
--- NOTE | ~2024-07-13 | FL_ITS ---
EXAMINATION: XR BARIUM SWALLOW CLINICAL INFORMATION: Gastroesophageal reflux disease without esophagitis COMPARISON: None available. TECHNIQUE: Routine barium swallow was performed in upright view following oral administration of thick barium and saltine coated barium. Thin barium was administered in prone lying position under fluoroscopy. Placed prone and thin barium was FINDINGS: Following oral administration of thick barium and and solid food and upright view there is normal mastication of solid food with propagation of bolus from the oral cavity through the pharynx, esophagus into stomach without any evidence of obstruction, narrowing of stricture. No laryngeal penetration or aspiration seen. Transient holdup of solid food was seen in the mid esophagus which cleared with dry swallowing. On oral administration of thin barium in prone lying position there is normal distention of esophagus without any evidence of obstruction, narrowing or stricture. No laryngeal penetration or aspiration seen. The soft tissues are normal. FLUOROSCOPY TIME: 2 minutes and 4 seconds. DOSE AREA PRODUCT: 1418 uGy-m2 (microgray-meter squared) FL/FL barium swallow IMPRESSION: Unremarkable modified barium swallow. Electronically signed by: Otilio Pablo MD 07/13/2024 12:06 PM EDT
--- OUTSIDE RECORDS SUMMARY | 2024-07-13 09:02 | XMS_ITS | Data Portability ---
Author Organization [place] - [facility], Allergy Address [address] [address] Care Team Providers Care Slide Fastener Chain Assembler Name Role Phone AI MATTHEWS Primary Care Provider Assessment Encounter Date Assessment Date Assessment LastModified by Organization Details LastModified Time 07/03/2024 07/03/2024 Patient has left lower lobe papillary thyroid carcinoma. She has had multiple surgeries on her face and neck for gender affirmation. Today she was concerned about left posterior neck nodules that are likely residual from her liposuction in the past. I do not believe they represent metastatic disease from the thyroid carcinoma. She also describes some vocal changes with fluctuations, today was a higher pitch than normal. Fiberoptic laryngoscopy was benign with mobile vocal cords bilaterally and no nodules present. I would like her to see my colleague from endocrine surgery to manage her new diagnosis of left papillary thyroid carcinoma. It is very likely she would benefit from a surgical intervention [email or web address] Not available 07/03/2024 12:18:33 Plan of Treatment Reminders Order Date Submit Date Provider Last Modified By Organization Details Last Modified Time Details Appointments None recorded. Lab None recorded. Referral endocrine surgery referral - left lower lobe papillary thyroid carcinoma 12mm 2024 025 [email or web address] Farnaz Lenz MD, [address] [place] [address] [address] [address], [place], [address], 15:47:45 Procedures None recorded. Surgeries None recorded. Imaging CT, neck, soft tissue, w/ contrast 2023 024 [facility] Radiology (Scheduling, Multiplte Sites), [address] [facility] [place], [address], 4 14:58:47 US, thyroid - please perform dedicated thyroid ultrasound 2023 024 [facility] Radiology (Scheduling, Multiplte Sites), [address] [place] [address], [address], 4 11:24:18 Medication Orders None recorded. Patient TargetsNo targets recorded. Patient InstructionsNo instructions recorded. Reason for Referral Endocrine Surgery Referral f or Papillary thyroid carcinoma left lower lobe papillary thyroid carcinoma 12mm Referring Physician: Jayson Lucio, Otolaryngology, Encounter Date: 07/03/2024 Results Created Date Observation Date Name Description Value Unit Range Abnormal Flag Note LastModifiedBy Organization Detail LastModifiedTime 04/30/20 24 04/30/2024 US, thyro id No observ ation record ed. [facility] [address] [place], [address], 05/07/2024 09:10:25 04/30/20 24 04/30/2024 CT, neck, soft tissu e, w/ contr ast No observ ation record ed. [address], [address], 05/07/2024 09:10:26 06/01/19 25 06/01/2024 fine needl e aspir ation , ultra sound guide d, thyro id (PROC ) No observ ation record ed. [facility] (Intervention al Radiology) [address] [place] [address], [address], 06/05/2024 11:30:21 Result Notes None recorded. Problems Name Problem SNOMED Code Status Onset Date Resolution Date Notes Provider Name and Address Organization Details Recorded Time Mass of neck 383181084 Active 2023 Localized swelling, mass and lump, neck; Note: Date Diagnosed: 09/15/2023 1:02 PM (R22.1) Not Available [facility] 03:29:14 Neck swelling 609979302 Active 2023 Localized swelling, mass and lump, neck; Note: Date Diagnosed: 09/15/2023 1:02 PM (R22.1) Not Available [facility] 4 03:29:14 Neoplasm of uncertain behavior of thyroid gland 59421726 Active 2023 Neoplasm of uncertain behavior of thyroid gland; Note: Date Diagnosed: 09/15/2023 1:02 PM (D44.0) Not Available [facility] 4 03:29:14 Cervical lymphaden opathy 535831203 Active 2023 CHRIS TAYLOR MD [address] [place] [address], [place], [address] , [place] - [facility] 4 16:53:50 Thyroid nodule 081717688 Active 2023 CHRIS TAYLOR MD [address] [place], [place] [address]on [place] [address], [place], [address] , [place] - [facility] 4 16:57:22 Papillary thyroid carcinoma 111929282 Active 2024 JAYSON LUCIO MD [address] [place], [place] [address]on [place] [address], [place], [address] , [place] - [facility] 5 14:47:59 Dysphonia 96862794 Active 2024 JAYSON LUCIO MD [address] [place], [place] [address]on [place] [address], [place], [address] , [place] - [facility] 5 12:18:37 Problem Notes None recorded. Procedures Surgical History Date Name Laterality Status Provider Name and Address Organization Details Recorded Time 07/03/2024 FOL_DP completed JAYSON LUCIO MD [facility] [address] [place] [address], [place], [address], [place] - [facility] 07/03/2024 12:15:49 03/21/2024 FFL_RE completed CHRIS TAYLOR MD [facility] [address],[place] [facility], [place], [address], [place] - [facility] 03/21/2024 16:53:43 Imaging Results Imaging Date Name Status LastModified by Organiz ation Details LastModified Time 04/30/2024 US, thyroid completed [facility] [address] [place], [address], 05/07/2024 09:10:25 04/30/2024 CT, neck, soft tissue, w/ contrast completed [facility] [address] [place] [address], [address], 05/07/2024 09:10:26 06/01/2024 fine needle aspiration, ultrasound guided, thyroid (PROC) completed [facility] (Interventional Radiology) [address] [place] [address], [address], 06/05/2024 11:30:21 Procedure Notes None recorded. Medical [...] TAKE 1 TABLET BY MOUTH TWICE DAILY IN THE MORNING AND AT BEDTIME NEEDED FOR ANXIETY active Not Available Not Available No t Available azithromyci n 250 mg tablet TAKE 2 TABLETS BY MOUTH ON DAY 1, THEN TAKE 1 TABLET DAILY ON DAYS 2-5 03/21 completed Not Available Not Available Not Available prednisone 20 mg tablet TAKE 1 TABLET BY MOUTH EVERY DAY FOR 5 DAYS 03/21 completed Not Available Not Available Not Available hydroxyzine pamoate 50 mg capsule TAKE 1 CAPSULE BY MOUTH DAILY AT BEDTIME NEEDED FOR ANXIETY active Not Available Not Available No t Available melatonin 3 mg tablet TAKE 1 TABLET BY MOUTH DAILY AT BEDTIME NEEDED FOR SLEEP active Not Available Not Available No t Available tretinoin 0.05 % topical cream APPLY TOPICALLY TO THE AFFECTED AREA(S) OF SKIN EVERY NIGHT DIRECTED 03/21 completed Not Available Not Available Not Available acetaminoph en 500 mg tablet TAKE 1 TABLET BY MOUTH EVERY 8 HOURS NEEDED FOR MILD PAIN OR FEVER FOR UP TO 10 DAYS 07/03 completed Not Available Not Available Not Available lidocaine-p rilocaine 2.5 %-2.5 % topical cream APPLY TOPICALLY TO THE AFFECTED AREA(S) EVERY DAY NEEDED active Not Available Not Available No t Available pantoprazol e 20 mg tablet,jalen yed release TAKE 2 TABLETS BY MOUTH ONCE DAILY IN THE MORNING BEFORE BREAKFAST DO NOT BREAK, CRUSH, DISSOLVE OR CHEW active Not Available Not Available No t Available famotidine 20 mg tablet TAKE 1 TABLET BY MOUTH TWICE DAILY 03/21 completed Not Available Not Available Not Available sertraline 25 mg tablet TAKE 1 TABLET BY MOUTH EVERY DAY IN THE MORNING active Not Available Not Available No t Available ibuprofen 600 mg tablet TAKE 1 TABLET BY MOUTH EVERY 6 HOURS NEEDED FOR MILD PAIN 03/21 completed Not Available Not Available Not Available levofloxaci n 750 mg tablet TAKE 1 TABLET BY MOUTH EVERY DAY 03/21 completed Not Available Not Available Not Available sertraline 50 mg tablet TAKE 1 TABLET BY MOUTH DAILY IN THE MORNING active Not Available Not Available No t Available doxycycline hyclate 100 mg tablet TAKE [...] mg tablet TAKE 1 TABLET BY MOUTH DAILY active Not Available Not Available No t Available Biktarvy 50 mg-200 mg-25 mg tablet TAKE 1 TABLET BY MOUTH EVERY MORNING 03/21 completed Not Available Not Available Not Available Cabenuva 600 mg/3 mL-900 mg/3 mL IM suspension, extended release INJECT 6 ML INTRAMUSC ULARLY EVERY 8 WEEKS active Not Available Not Available No t Available Vitals Date Recorded Body height Body mass index (BMI) Body weight Provider Name and Address Organization Details Last Updated DateTime 07/03/2024 170.18 cm 37.6 kg/m2 042314.17 g Angie Hughes [place] - [facility] 07/03/2024 11:42:18 Date Recorded Body height Body mass index (BMI) Body weight Provider Name and Address Organization Details Last Updated DateTime 03/21/2024 170.18 cm 39.2 kg/m2 177807.09 g Angie Hughes [place] - [facility] 03/21/2024 16:30:19 Social History None recorded. Functional Status None recorded. Mental Status None recorded. Family History Nothing Reported. Medical History No medical history recorded. Gynecological HistoryNo gynecological history recorded. Obstetrics History GPAL:G 0 P 0 0 0 0 Past Encounters Encounter ID Performer Location Encounter Start Date Encounter Closed Date Diagnosis/Indication Diagnosis SNOMED-CT Code Diagnosis ICD10 Code Diagnosis Note [id number] CHRIS TAYLOR MD [facility] [address] [address] 03/21/2024 16:20:19 03/21/2024 16:39:20 Cervical lymphadenopathy 394968207 R59.0 I don't palpate any enlarged lymph nodes. Perhaps they were reactive due to prior liposcutio n. Will order a CT neck with contrast to evaluate for any concerning adenopathy . Thyroid nodule 669970180 E04.1 I recommend a dedicated ultrasound which likely will need to be followed by an USGFNA. [id number] JAYSON LUCIO MD [facility] [address] [address] 07/03/2024 11:33:41 07/03/2024 12:19:12 Papillary thyroid carcinoma 467343988 C73 12mm left thyroid nodule Dysphonia 70956357 R49.9 Health Concerns Section Related Observation LastModified by Organization Detai ls LastModified Time None Recorded Concern Status LastModified by Organization Details LastModified Time None Recorded Advance Directives Directive None Recorded Payers Encounter Date Sequence Insurance Name Policy Number Policy Yoder Covered Member ID Yoder Member ID Guarantor Name 03/21/2024 1 [place] Liliana Y Orr Gamez [id number] Liliana Y Orr Gamez 07/03/2024 1 [place] Liliana Y Orr Gamez [id number] Liliana Y Orr Gamez Notes Date Note Type Note Provider [...] nodes are still enlarged. CHRIS TAYLOR MD [address] [facility],[place] [address], [place], [address], [place] - [facility] 03/21/2024 17:01:02 07/03/2024 text/html patient of Dr TaylorLeft thyroid nodule 06/30/2023 ultrasound neck at [facility] thyroid lobe 8 x 11 x 10 mm nodule, TI RADS 5Left neck level 2 multiple atypical lymph nodes measuring 22 mm, 23 mm, 15 mmRight neck level 2 multiple lymph nodes largest 35 mm and 18 mm04/30/20[facility] thyroid 12 x 9 x 9 mm nodule TI RADS 512 CT neck with contrast at [facility] postauricular lymph node 14 mmLeft level 2A and 3 at the level of hyoid 15 mm lymph nodeRight level 2A lymph node 15 mmLeft lower pole thyroid nodule 1 cm06/01/2024 ultrasound[facility] Hx of liposuction to neck for gender affirmation JAYSON LUCIO MD [address] [facility],[place] [address], [place], [address], [place] [facility] 07/03/2024 12:19:13 OBGyn Episode No OBEpisode recorded.
--- OUTSIDE RECORDS SUMMARY | 2024-07-13 09:02 | XMS_ITS | Clinical Summary ---
Author Organization [facility] ity Address [address] [place] [address] Care Team Providers Care Director Business Travel Name Role Phone Unavailable Primary Care Provider [...]
== END 2024-07-13 08:46 | disposition home or self-care (01) ==
LOC: HO.XRAY 08:45
PROVIDERS: Visit Provider Internal Medicine
DX: K21.9 Gastro-esophageal reflux disease without esophagitis (principal)
CPT/HCPCS: 74220

== ENCOUNTER → 2024-07-13 08:47 | Outpatient (BNV) | payer MEDICAID, SELFPAY | PROVIDERS: Visit Provider Radiology Diagnostic Radiology | DX: K21.9 Gastro-esophageal reflux disease without esophagitis (principal) | CPT/HCPCS: 74220 ==

== ENCOUNTER 2024-09-03 15:19 | Emergency (ER) | payer OTHER, SELFPAY ==
--- NOTE | 2024-09-03 15:34 | ED.ANXIETY ---
HPI - Anxiety General Chief Complaint: Anxiety Stated Complaint: ABD PAIN,HYPERVENTILATING @ DR OFFICE,BP 153/102 Time Seen by Provider: 09/03/24 15:24 Source: patient, EMS, old records reviewed and manager clinical pharmacy Mode of arrival: EMS Limitations: no limitations History of Present Illness ED Provider: BONY HPI narrative: 29 yo female with PMH of anxiety, PUD, PTSD, HIV followed by ID who c/o anxiety and upper abdominal pain states she has attacks when she is upset and stressed out. Prior to this difficult news she said she felt fine. She feels much better now with supportive care and the EMS ride. She notes this happens when she feels overwhelmed. No n/v/d, no fevers. MD complaint: anxiety Onset (ago): hour(s) (1) Symptoms: extremity numbness/tingling, sense of impending doom and other (upper abdominal pain) Severity: moderate Quality: constant Place: other History of similar episodes: Yes Provoking factors: emotional stress Relieving factors: rest Exacerbating factors: nothing Associated symptoms: weakness Related Data Previous Rx's ?Medication ?Instructions ?Recorded famotidine 20 mg tablet 20 mg PO BID 90 days #180 tabs 04/23/24 Allergies Allergy/AdvReac Type Severity Reaction Status Date / Time No Known Allergies Allergy Verified 09/03/24 15:44 Review of Systems Review of Systems: Constitutional : No Fever, No Chills, No Fatigue ENT/Mouth : No sore throat, No Rhinorrhea Eyes: No Eye Pain, No Swelling, No Redness Cardiovascular : No Chest Pain, No SOB, No Dyspnea on Exertion Respiratory : No Cough, No Sputum Gastrointestinal : No Nausea, No Vomiting, No Diarrhea, pos abdominal Pain Genitourinary : No Dysuria, No Urinary Frequency, No Hematuria, Musculoskeletal : No joint pain, No Myalgias, No Joint Swelling Skin : No Skin Lesions, No rash Neuro : No Weakness, No Numbness, No Dizziness, no Headache All other systems reviewed and are negative PENDING SALE TO [facility] Past Medical History Attestation statement: The following information was validated with the patient. 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 Oriented X3. No acute distress. Eyes: Pupils equal, round and reactive to light. ENT: Pharynx normal. Neck: Normal inspection. Neck supple. CVS: Normal heart rate and rhythm. Pulses normal. Respiratory: No respiratory distress. Breath sounds normal. Abdomen: Soft and very mild ttp to deep palpation in epigastric area Skin: Skin warm and dry. Normal skin color. Normal skin turgor. Extremities: No lower extremity edema. No calf ttp Neuro: Oriented X 3. No motor deficit. No sensory deficit. CN2-12 intact Course Course Course Narrative: signed out to Mona DONNELLY pending work up -172--labs reassuring. Troponin negative. Patient is safe for discharge home at this time Results discussed with patient including worrisome signs and symptoms and strict return precautions, and when to return to the emergency department. They verbalized understanding and feel safe for discharge at this time. Medications Administered Discontinued Medications Generic Name Dose Route Start Last Admin Trade Name Freq PRN Reason Stop Dose Admin Lorazepam 1 mg 09/03/24 15:35 09/03/24 15:54 Lorazepam 1 Mg Tablet PO 09/03/24 15:36 1 mg ONCE ONE Administration Pantoprazole Sodium 40 mg 09/03/24 15:35 09/03/24 15:54 Pantoprazole Sodium 40 Mg/10 Ml Vial IVPUSH 09/03/24 15:36 40 mg ONCE ONE Administration Medical Decision Making Medical Decision Making [facility] Narrative: 29 yo female with PMH of anxiety, PUD, PTSD, HIV followed by ID who c/o anxiety and upper abdominal pain after stressful even at this time will need basic labs, EKG - has had this many times in the past at this time if labs and EKG reassuring stable for DC. She tells me that Differential Diagnosis Differential Diagnoses: The differential diagnosis associated with the presentation includes anxiety, gastritis, PUD Admission/Observation Consideration of admission/observation: Escalation of care including admission/observation considered if work up negative stable for DC Lab Data MDM Lab Attestation statement: I reviewed the patient's lab results. 09/03/24 16:49 09/03/24 16:49 Labs: Lab Results 09/03/24 Range/Units 16:49 WBC 11.0 H (4.8-10.8) X10*3/uL RBC 4.90 (4.20-5.50) X10*6/uL Hgb 14.5 (12.0-16.0) g/dl Hct 41.2 (37.0-47.0) % MCV 84.1 (80.0-98.0) fL MCH 29.6 (27.0-33.0) pg MCHC 35.2 H (31.0-35.0) g/dl RDW 13.2 (11.0-16.0) % Plt Count 202 (160-400) X10*3/uL MPV 10.1 (9.4-12.3) fL Immature Gran % (Auto) 0.4 (0.0-0.4) % Neut % (Auto) 60.2 (45-73) % Lymph % (Auto) 29.5 (20-40) % [place] % (Auto) 6.3 (2-11) % Eos % (Auto) 3.3 (0-4) % Baso % (Auto) 0.3 (0-2) % Lymph # (Auto) 3.2 (1.2-4.9) X10*3/uL [place] # (Auto) 0.7 (0.1-1.2) X10*3/uL Eos # (Auto) 0.4 (0.0-0.4) X10*3/uL Baso # (Auto) 0.0 (0.0-0.2) X10*3/uL Abs Immat Gran (auto) 0.04 H (0.00-0.03) X10*3/uL Absolute Neuts (auto) 6.6 (2.0-8.3) x10*3/uL Absolute Nucleated RBC 0.000 (0.0-0.012) X10*3/uL Nucleated RBC % (auto) 0.0 (0.0-0.2) /100WBC Sodium 140 (135-145) mmol/L Potassium 3.8 (3.3-5.1) mmol/L Chloride 106 (96-108) mmol/L Carbon Dioxide 26 (22-29) mmol/L Anion Gap 12 (12-20) BUN 13 (9-16) mg/dL Creatinine 0.87 (0.5-1.4) mg/dL Estim Creat Clear Calc 118.0 Estimated GFR > 60 Random Glucose 96 (60-115) mg/dL Calcium 9.2 D (8.4-10.2) mg/dL Magnesium 2.0 (1.6-2.6) mg/dL Total Bilirubin 0.6 (0.0-1.0) mg/dL Direct Bilirubin 0.2 (0.0-0.5) mg/dL AST 36 H (5-31) U/L ALT 65 H (0-31) U/L Alkaline Phosphatase 103 (39-117) U/L Troponin I High Sens < 2.7 (<3.5-17.0) ng/L Total Protein 7.6 (6.5-8.0) g/dL Albumin 4.6 (3.5-5.0) g/dL Lipase 56 (8-78) U/L Independent Interpretation I performed an independent interpretation of an: EKG Interpretation: My interpretation EKG normal sinus rhythm with sinus arrhythmia rate of 66. NH interval 1 SARS-CoV-2. QRS 96. Incomplete right bundle-branch block. questionable change in QRS axis when compared to prior. No STEMI. Independent Historian Clinical information obtained from an independent historian. History obtained from or confirmed by: EMS External Record Review External record reviewed: Outpatient record Discharge Plan Discharge Clinical Impression: Acute anxiety, Panic disorder Patient Disposition: Home, Self-Care Instructions: Panic Disorder (ED), Anxiety (ED) Additional Instructions: your labs and EKG are reassuring return for any worsening symptoms or concerns rest and stay hydrated Prescriptions: No Action famotidine 20 mg tablet 20 mg PO BID 90 Days Qty: 180 0RF Referrals: [facility] [Outside] Physician,Unknown J [Primary Care Provider] - Interventions: ED Discharge Assessment Last Done: 09/03/24 18:04 Discharge Date/Time: 09/03/24 18:11 Print Language: Cymro
--- NOTE | 2024-09-03 15:35 | ECG_ITS ---
Test Reason : ABDOMINAL PAIN Blood Pressure : */* mmHG Vent. Rate : 66 BPM Atrial Rate : 66 BPM P-R Int : 162 ms QRS Dur : 96 ms QT Int : 408 ms P-R-T Axes : * 175 129 degrees QTcB Int : 427 ms Normal sinus rhythm with sinus arrhythmia Right axis deviation Low voltage QRS Incomplete right bundle branch block Nonspecific T wave abnormality Abnormal ECG When compared with ECG of 30-May-2021 09:52, Questionable change in QRS axis Referred By: Mignon Lopez Electronically Signed By: MEG RAMÍREZ
[2024-09-03 15:40] VITALS: BP 129/72; PULSE 78; RESP 16; TEMP 36.9; O2SAT 98; BMI 38.1
[2024-09-03] MEDS: LORazepam 1 MG TABLET PO (15:54)
[2024-09-03] MEDS: Pantoprazole Sodium 40 MG/10 ML VIAL IVPUSH (15:54)
[2024-09-03 16:44] VITALS: BP 117/66; PULSE 65; RESP 16; TEMP 36.3; O2SAT 99
[2024-09-03 16:53] LABS: MANUAL DIFF FLAG NO
[2024-09-03 16:54] LABS: Basophils Percent Auto 0.3 % (0-2); Eosinophils Absolute Auto 0.4 X10*3/uL (0.0-0.4); Eosinophils Percent Auto 3.3 % (0-4); Hematocrit 41.2 % (37.0-47.0); Hemoglobin 14.5 g/dl (12.0-16.0); Imm Gran Abs Auto 0.04 X10*3/uL (0.00-0.03); Imm Gran Pct Auto 0.4 % (0.0-0.4); Lymphocytes Absolute Auto 3.2 X10*3/uL (1.2-4.9); Lymphocytes Percent Auto 29.5 % (20-40); Mean Corpuscular HGB Conc 35.2 g/dl (31.0-35.0); Mean Corpuscular Hemoglobin 29.6 pg (27.0-33.0); Mean Corpuscular Volume 84.1 fL (80.0-98.0); Mean Platelet Volume 10.1 fL (9.4-12.3); Monocytes Absolute Auto 0.7 X10*3/uL (0.1-1.2); Monocytes Percent Auto 6.3 % (2-11); Neutrophils Absolute Auto 6.6 x10*3/uL (2.0-8.3); Neutrophils Percent Auto 60.2 % (45-73); Platelet Count 202 X10*3/uL (160-400); Red Cell Distribution Width 13.2 % (11.0-16.0)
[2024-09-03 17:08] LABS: Alanine Aminotransferase 65 U/L (0-31); Albumin Level 4.6 g/dL (3.5-5.0); Alkaline Phosphatase 103 U/L (39-117); Anion Gap 12 (12-20); Aspartate Amino Transferase 36 U/L (5-31); Bilirubin Direct 0.2 mg/dL (0.0-0.5); Bilirubin Total 0.6 mg/dL (0.0-1.0); Blood Urea Nitrogen 13 mg/dL (9-16); Calcium 9.2 mg/dL (8.4-10.2); Carbon Dioxide 26 mmol/L (22-29); Chloride 106 mmol/L (96-108); Estimated Glomerular Filt Rate > 60; Glucose Random 96 mg/dL (60-115); Lipase 56 U/L (8-78); Potassium 3.8 mmol/L (3.3-5.1); Sodium 140 mmol/L (135-145); Total Protein 7.6 g/dL (6.5-8.0)
[2024-09-03 17:17] LABS: Troponin-I High Sensitivity < 2.7 ng/L (<3.5-17.0)
--- NOTE | 2024-09-03 17:21 | PC.NURSE ---
pt has been resting comfortably since triage and has offered no complaint. she has remained in nsr on monitor. awaiting md reeval.
--- OUTSIDE RECORDS SUMMARY | 2024-09-03 17:22 | XMS_ITS | Data Portability ---
Author Organization [place] - [facility], Allergy Address [address] [address] Care Team Providers Care Sawmilling Operator Name Role Phone AI MATTHEWS Primary Care [...] 12mm 2024 025 [email or web address] Farnaz Lenz MD, [address] [place] [address] [address] [address], [place], [address], 15:47:45 Procedures None recorded. Surgeries None recorded. Imaging CT, neck, soft tissue, w/ contrast 2023 024 [facility] Radiology (Scheduling, Multiplte Sites), [address] [facility], [address], 4 14:58:47 US, thyroid - please perform dedicated thyroid ultrasound 2023 024 [facility] Radiology (Scheduling, Multiplte Sites), [address] [place] [address], [address], 4 11:24:18 Medication Orders None recorded. Patient TargetsNo targets recorded. Patient InstructionsNo instructions recorded. Reason for Referral Endocrine Surgery Referral f or Papillary thyroid carcinoma left lower lobe papillary thyroid carcinoma 12mm Referring Physician: Jayson Franco, Otolaryngology, Encounter Date: 07/03/2024 Results Created Date Observation Date Name Description Value Unit Range Abnormal Flag Note LastModifiedBy Organization Detail LastModifiedTime 04/30/20 24 04/30/2024 US, thyro id No observ ation record ed. [facility] [address] [place], [address], 05/07/2024 09:10:25 04/30/20 24 04/30/2024 CT, neck, soft tissu e, w/ contr ast No observ ation record ed. [address], [address], 05/07/2024 09:10:26 06/01/19 25 06/01/2024 fine needl e aspir ation , ultra sound guide d, thyro id (PROC ) No observ ation record ed. [facility] (Intervention al Radiology) [address] [place] [address], [address], 06/05/2024 11:30:21 Result Notes None recorded. Problems Name Problem SNOMED Code Status Onset Date Resolution Date Notes Provider Name and Address Organization Details Recorded Time Mass of neck 695287709 Active 2023 Localized swelling, mass and lump, neck; Note: Date Diagnosed: 09/15/2023 1:02 PM (R22.1) Not Available [facility] 03:29:14 Neck swelling 115212574 Active 2023 Localized swelling, mass and lump, neck; Note: Date Diagnosed: 09/15/2023 1:02 PM (R22.1) Not Available [facility] 4 03:29:14 Neoplasm of uncertain behavior of thyroid gland 72306467 Active 2023 Neoplasm of uncertain behavior of thyroid gland; Note: Date Diagnosed: 09/15/2023 1:02 PM (D44.0) Not Available [facility] 4 03:29:14 Cervical lymphaden opathy 675610836 Active 2023 CHRIS TAYLOR MD [address] [place] [address], [place], [address] , [place] - [facility] [place] 4 16:53:50 Thyroid nodule 913961184 Active 2023 CHRIS TAYLOR MD [address] [place], [place] [address] [address], [place], [address] , [place] - [facility] [place] 4 16:57:22 Papillary thyroid carcinoma 491163988 Active 2024 JAYSON FRANCO MD [address] [place], [place] [address]on [place] [address], [place], [address] , [place] - [facility] [place] 5 14:47:59 Dysphonia 46866187 Active 2024 JAYSON FRANCO MD [address] [place], [place] [address]on [place] [address], [place], [address] , [place] - [facility] [place] 5 12:18:37 Problem Notes None recorded. Procedures Surgical History Date Name Laterality Status Provider Name and Address Organization Details Recorded Time 07/03/2024 FOL_DP completed JAYSON FRANCO MD [facility] [address] [place] [address], [place], [address], [place] - [facility] [place] 07/03/2024 12:15:49 03/21/2024 FFL_RE completed CHRIS TAYLOR MD [facility] [address] [facility], [place], [address], [place] - [facility] [place] 03/21/2024 16:53:43 Imaging Results Imaging Date Name Status LastModified by Organiz ation Details LastModified Time 04/30/2024 US, thyroid completed [facility] [address] [place], [address], 05/07/2024 09:10:25 04/30/2024 CT, neck, soft tissue, w/ contrast completed [facility] [address] [place] [address], [address], 05/07/2024 09:10:26 06/01/2024 fine needle aspiration, ultrasound guided, thyroid (PROC) completed [facility] (Interventional Radiology) [address] [place] [address], [address], 06/05/2024 11:30:21 Procedure Notes None recorded. Medical [...] Updated DateTime 07/03/2024 170.18 cm 37.6 kg/m2 253135.17 g Angie Hughes [place] - [facility] 07/03/2024 11:42:18 Date Recorded Body height Body mass index (BMI) Body weight Provider Name and Address Organization Details Last Updated DateTime 03/21/2024 170.18 cm 39.2 kg/m2 409081.09 g Angie Hughes [place] - [facility] 03/21/2024 16:30:19 Social History None recorded. Functional Status None recorded. Mental Status None recorded. Family History Nothing Reported. Medical History No medical history recorded. Gynecological HistoryNo gynecological history recorded. Obstetrics History GPAL:G 0 P 0 0 0 0 Past Encounters Encounter ID Performer Location Encounter Start Date Encounter Closed Date Diagnosis/Indication Diagnosis SNOMED-CT Code Diagnosis ICD10 Code Diagnosis Note [id number] CHRIS TAYLOR MD [facility] [address] [address] 03/21/2024 16:20:19 03/21/2024 16:39:20 Cervical lymphadenopathy 542350081 R59.0 I don't palpate any enlarged lymph nodes. Perhaps they were reactive due to prior liposcutio n. Will order a CT neck with contrast to evaluate for any concerning adenopathy . Thyroid nodule 947901269 E04.1 I recommend a dedicated ultrasound which likely will need to be followed by an USGFNA. [id number] JAYSON FRANCO MD [facility] [address] [address] 07/03/2024 11:33:41 07/03/2024 12:19:12 Papillary thyroid carcinoma 354601892 C73 12mm left thyroid nodule Dysphonia 95726166 R49.9 Health Concerns Section Related Observation LastModified by Organization Detai ls LastModified Time None Recorded Concern Status LastModified by Organization Details LastModified Time None Recorded Advance Directives Directive None Recorded Payers Encounter Date Sequence Insurance Name Policy Number Policy Yoder Covered Member ID Yoder Member ID Guarantor Name 03/21/2024 1 [place] Liliana Y Orr Gamez [id number] Liliana Y Orr Gamez 07/03/2024 1 [place] Liliana Y Orr Gamez [id number] Liliana Y Orr Gamez Notes Date Note [...] are still enlarged. CHRIS TAYLOR MD [address] [facility],[place] [address], [place], [address], [place] - [facility] 03/21/2024 17:01:02 07/03/2024 text/html patient of Dr TaylorLeft thyroid nodule 06/30/2023 ultrasound neck at [facility] thyroid lobe 8 x 11 x 10 mm nodule, TI RADS 5Left neck level 2 multiple atypical lymph nodes measuring 22 mm, 23 mm, 15 mmRight neck level 2 multiple lymph nodes largest 35 mm and 18 mm04/30/2024 [facility] lower [facility] thyroid 12 x 9 x 9 mm nodule TI RADS 512 CT [facility] at [facility] post[facility]icular lymph node 14 mmLeft level 2A and 3 at the level of hyoid 15 mm lymph nodeRight level 2A lymph node 15 mmLeft lower pole thyroid nodule 1 cm06/01/2024 ultrasound-[facility] Hx of liposuction to neck for gender affirmation JAYSON FRNACO MD [address] [facility],[place] [address], [place], [address], [place] - [facility] 07/03/2024 12:19:13 OBGyn Episode No OBEpisode recorded.
--- OUTSIDE RECORDS SUMMARY | 2024-09-03 17:22 | XMS_ITS | Clinical Summary ---
Author Organization [facility] ity Address [address] [place] [address] Care Team Providers Care Ceramic Chemist Name Role Phone Unavailable Primary Care Provider [...] - 2023-2 5 season) 2024 Influenza Vaccine (Season Ended) 2024 HIB Vaccines Aged Out No longer [...] age to complete this topic Meningococcal B Vaccine Aged Out No l onger eligible based on patient's age to complete [...]
[2024-09-03 18:04] VITALS: BP 117/66; PULSE 65; RESP 16; TEMP 36.3; O2SAT 99
== END 2024-09-03 18:11 | disposition home or self-care (01) ==
PROVIDERS: Emergency Provider Emergency Medicine
DX: F41.0 Panic disorder [episodic paroxysmal anxiety] (principal); R94.31 Abnormal electrocardiogram [ECG] [EKG]; F41.9 Anxiety disorder, unspecified; R10.10 Upper abdominal pain, unspecified; R20.0 Anesthesia of skin; F43.9 Reaction to severe stress, unspecified
CPT/HCPCS: 36415; 80048; 80076; 83690; 83735; 84484; 85025; 93005; 96372; 99284; J2470

== ENCOUNTER → 2024-09-03 15:35 | Outpatient (BNV) | payer SELFPAY | PROVIDERS: Emergency Provider Emergency Medicine; Visit Provider Internal Medicine | DX: I45.10 Unspecified right bundle-branch block (principal); I49.9 Cardiac arrhythmia, unspecified | CPT/HCPCS: 93010 ==

== ENCOUNTER 2024-10-02 12:39 | Outpatient (REF) | payer OTHER, SELFPAY ==
--- OUTSIDE RECORDS SUMMARY | 2024-10-02 14:01 | XMS_ITS | Data Portability ---
Author Organization [place] - [facility], Allergy Address [address] [address] Care Team Providers Care Upholstery Handler Name Role Phone AI MATTHEWS Primary Care Provider [phone] Assessment Encounter Date Assessment Date Assessment LastModified [...] 12mm 2024 025 [email or web address] Farnaz Lenz MD, [address] [place] [address] [address], [place], [address], 15:47:45 Procedures None recorded. Surgeries None recorded. Imaging CT, neck, soft tissue, w/ contrast 2023 024 [facility] Radiology (Scheduling, Multiplte Sites), [address] [facility] [place], [address], 4 14:58:47 US, thyroid - please perform dedicated thyroid ultrasound 2023 024 [facility] Radiology (Scheduling, Multiplte Sites), [address] [place] [address], [address], 4 11:24:18 Medication Orders None recorded. Patient [...] thyro id No observ ation record ed. [facility] [address] [place], [address], 05/07/2024 09:10:25 04/30/20 24 04/30/2024 CT, neck, soft tissu e, w/ contr ast No observ ation record ed. [address], [address], 05/07/2024 09:10:26 06/01/19 25 06/01/2024 fine needl e aspir ation , ultra sound guide d, thyro id (PROC ) No observ ation record ed. [facility] (Intervention al Radiology) [address] [place] [address], [address], 06/05/2024 11:30:21 Result Notes None recorded. Problems Name Problem SNOMED Code Status Onset Date Resolution Date Notes Provider Name and Address Organization Details Recorded Time Mass of neck 308409078 Active 2023 Localized swelling, mass and lump, neck; Note: Date Diagnosed: 09/15/2023 1:02 PM (R22.1) Not Available [facility] 03:29:14 Neck swelling 358049546 Active 2023 Localized swelling, mass and lump, neck; Note: Date Diagnosed: 09/15/2023 1:02 PM (R22.1) Not Available [facility] 4 03:29:14 Neoplasm of uncertain behavior of thyroid gland 31572990 Active 2023 Neoplasm of uncertain behavior of thyroid gland; Note: Date Diagnosed: 09/15/2023 1:02 PM (D44.0) Not Available [facility] 4 03:29:14 Cervical lymphaden opathy 070914923 Active 2023 CHRIS TAYLOR MD [address] [place] [address], [place], [address] , [place] - [facility] 4 16:53:50 Thyroid nodule 105950446 Active 2023 CHRIS TAYLOR MD [address] [place], [place] [address]on [place] [address], [place], [address] , [place] - [facility] [place] 4 16:57:22 Papillary thyroid carcinoma 053650298 Active 2024 JAYSON LUCIO MD [address] [place], [place] [address]on [place] [address], [place], [address] , [place] - [facility] 5 14:47:59 Dysphonia 54061478 Active 2024 JAYSON LUCIO MD [address] [place], [place] [address]on [place] [address], [place], [address] , [place] - [facility] 5 12:18:37 Problem Notes None recorded. Procedures Surgical History Date Name Laterality Status Provider Name and Address Organization Details Recorded Time 07/03/2024 FOL_DP completed JAYSON LUCIO MD [facility] [address] [place] [address], [place], [address], [place] - [facility] [place] 07/03/2024 12:15:49 03/21/2024 FFL_RE completed CHRIS TAYLOR MD [facility] [address] [place] [facility], [place], [address], [place] - [facility] [place] 03/21/2024 16:53:43 Imaging Results None recorded. Procedure Notes None recorded. Medical Equipment None [...] Updated DateTime 07/03/2024 170.18 cm 37.6 kg/m2 000311.17 g Angie Hughes [place] - [facility] 07/03/2024 11:42:18 Date Recorded Body height Body mass index (BMI) Body weight Provider Name and Address Organization Details Last Updated DateTime 03/21/2024 170.18 cm 39.2 kg/m2 358837.09 g Angie Hughes [place] - [facility] 03/21/2024 16:30:19 Social History None recorded. Functional Status None recorded. Mental Status None recorded. Family History Nothing Reported. Medical History No medical history recorded. Gynecological HistoryNo gynecological history recorded. Obstetrics History GPAL:G 0 P 0 0 0 0 Past Encounters Encounter ID Performer Location Encounter Start Date Encounter Closed Date Diagnosis/Indication Diagnosis SNOMED-CT Code Diagnosis ICD10 Code Diagnosis Note [id number] CHRIS TAYLOR MD [facility] [address] [address] 03/21/2024 16:20:19 03/21/2024 16:39:20 Cervical lymphadenopathy 359793580 R59.0 I don't palpate any enlarged lymph nodes. Perhaps they were reactive due to prior liposcutio n. Will order a CT neck with contrast to evaluate for any concerning adenopathy . Thyroid nodule 963993044 E04.1 I recommend a dedicated ultrasound which likely will need to be followed by an USGFNA. [id number] JAYSON LUCIO MD [facility] [address] [place] [address] 07/03/2024 11:33:41 07/03/2024 12:19:12 Papillary thyroid carcinoma 019515725 C73 12mm left thyroid nodule Dysphonia 91124888 R49.9 Health Concerns Section Related Observation LastModified by Organization Detai ls LastModified Time None Recorded Concern Status LastModified by Organization Details LastModified Time None Recorded Advance Directives Directive None Recorded Payers Insurance Date Sequence Insurance Name Policy Number Policy Yoder Covered Member ID Yoder Member ID Guarantor Name [id number] 1 [facility] (MEDICAID HMO) [employer] Liliana Y Orr Gamez [id number] Liliana Y Orr Gamez 10/12/2023 1 [facility] NET PLAN (MEDICAID HMO) [place] Liliana Orr Gamez [id number] Liliana Y Orr Gamez 10/12/2023 1 [place] Liliana Orr Gamez [id number] Liliana Y Orr Gamez 06/30/2024 1 [place] Liliana Y Orr Gamez [id number] Liliana Y Orr Gamez Notes Date Note [...] are still enlarged. CHRIS TAYLOR MD [address] [address], [place], [address], [place] - [facility] 03/21/2024 17:01:02 07/03/2024 text/html patient of Dr Carr thyroid nodule 06/30/2023 ultrasound neck at [facility] thyroid lobe 8 x 11 x 10 mm nodule, TI RADS 5Left neck level 2 multiple atypical lymph nodes measuring 22 mm, 23 mm, 15 mmRight neck level 2 multiple lymph nodes largest 35 mm and 18 mm04/30/2024 ultrasound neck at [facility] lower pole thyroid 12 x 9 x 9 mm nodule TI RADS 512 CT [facility] node 14 mmLeft level 2A and 3 at the level of hyoid 15 mm lymph nodeRight level 2A lymph node 15 mmLeft lower pole thyroid nodule 1 cm06/01/2024 ultrasound-guided [facility] thyroid carcinoma Hx of liposuction to neck for gender affirmation JAYSON LUCIO MD [address] [place] [address], [place], [address], [place] - [facility] 07/03/2024 12:19:13 OBGyn Episode No OBEpisode recorded.
[2024-10-02 17:04] LABS: MANUAL DIFF FLAG NO
[2024-10-02 17:15] LABS: Basophils Absolute Auto 0.1 X10*3/uL (0.0-0.2); Basophils Percent Auto 0.3 % (0-2); Eosinophils Absolute Auto 0.5 X10*3/uL (0.0-0.4); Eosinophils Percent Auto 2.9 % (0-4); Hematocrit 43.9 % (37.0-47.0); Hemoglobin 14.9 g/dl (12.0-16.0); Imm Gran Abs Auto 0.07 X10*3/uL (0.00-0.03); Imm Gran Pct Auto 0.4 % (0.0-0.4); Lymphocytes Absolute Auto 2.9 X10*3/uL (1.2-4.9); Lymphocytes Percent Auto 17.7 % (20-40); Mean Corpuscular HGB Conc 33.9 g/dl (31.0-35.0); Mean Corpuscular Hemoglobin 29.1 pg (27.0-33.0); Mean Corpuscular Volume 85.7 fL (80.0-98.0); Mean Platelet Volume 11.2 fL (9.4-12.3); Monocytes Absolute Auto 0.8 X10*3/uL (0.1-1.2); Monocytes Percent Auto 4.9 % (2-11); Neutrophils Percent Auto 73.8 % (45-73); Platelet Count 251 X10*3/uL (160-400); Red Blood Count 5.12 X10*6/uL (4.20-5.50); Red Cell Distribution Width 13.7 % (11.0-16.0); White Blood Count 16.3 X10*3/uL (4.8-10.8)
[2024-10-02 17:27] LABS: Alanine Aminotransferase 54 U/L (0-31); Albumin Level 4.9 g/dL (3.5-5.0); Alkaline Phosphatase 110 U/L (39-117); Anion Gap 13 (12-20); Aspartate Amino Transferase 38 U/L (5-31); Bilirubin Total 0.5 mg/dL (0.0-1.0); Blood Urea Nitrogen 10 mg/dL (9-16); Calcium 9.8 mg/dL (8.4-10.2); Carbon Dioxide 26 mmol/L (22-29); Chloride 107 mmol/L (96-108); Estimated Glomerular Filt Rate > 60; Glucose Random 155 mg/dL (60-115); Potassium 4.3 mmol/L (3.3-5.1); Sodium 142 mmol/L (135-145); Total Protein 8.1 g/dL (6.5-8.0)
[2024-10-04 13:48] LABS: HIV RNA PCR Qn Copies 30 copies/mL (NOT DETECTED); HIV RNA PCR Qn Log Copies 1.48 (NOT DETECTED)
[2024-10-09 15:44] LABS: Absolute CD3 Count 1436 cells/uL (840-3060); Absolute CD4 Count 818 cells/uL (490-1740); Absolute CD8 Count 618 cells/uL (180-1170); Absolute Lymphocytes 2656 cells/uL (850-3900); CD4 CD8 Ratio 1.32 (0.86-5.00); Percent CD3 Cells 54 % (57-85); Percent CD4 Cells 31 % (30-61); Percent CD8 Cells 23 % (12-42)
== END 2024-10-02 12:40 | disposition home or self-care (01) ==
LOC: HO.HHCL 12:39
PROVIDERS: Visit Provider Internal Medicine
DX: Z21 Asymptomatic human immunodeficiency virus [HIV] infection status (principal)
CPT/HCPCS: 36415; 80053; 82550; 85025; 86359; 86360; 87536

== ENCOUNTER 2024-10-25 10:09 | Outpatient (REF) | payer OTHER, SELFPAY ==
--- OUTSIDE RECORDS SUMMARY | 2024-10-25 11:49 | XMS_ITS | Data Portability ---
Author Organization [place] - [facility], Allergy Address [address] [place] [address] Care Team Providers Care Office Services Representative Name Role Phone AI MATTHEWS Primary Care Provider [phone] Assessment Encounter Date Assessment Date Assessment LastModified [...] 12mm 2024 025 [email or web address] Farnaz Lenz MD, [facility], [place], [address], 15:47:45 Procedures None recorded. Surgeries None recorded. Imaging CT, neck, soft tissue, w/ contrast 2023 024 [facility] Radiology (Scheduling, Multiplte Sites), [address] [facility] [place], [address], 4 14:58:47 US, thyroid - please perform dedicated thyroid ultrasound 2023 024 [facility] Radiology (Scheduling, Multiplte Sites), [address] [place] [address], [address], 4 11:24:18 Medication Orders None recorded. Patient [...] thyro id No observ ation record ed. [facility] [address] [place], [address], 05/07/2024 09:10:25 04/30/20 24 04/30/2024 CT, neck, soft tissu e, w/ contr ast No observ ation record ed. [address], [address], 05/07/2024 09:10:26 06/01/19 25 06/01/2024 fine needl e aspir ation , ultra sound guide d, thyro id (PROC ) No observ ation record ed. [facility] (Intervention al Radiology) [address] [place] [address], [address], 06/05/2024 11:30:21 Result Notes None recorded. Problems Name Problem SNOMED Code Status Onset Date Resolution Date Notes Provider Name and Address Organization Details Recorded Time Mass of neck 911296591 Active 2023 Localized swelling, mass and lump, neck; Note: Date Diagnosed: 09/15/2023 1:02 PM (R22.1) Not Available [facility] 08/02/202 4 03:29:14 Neck swelling 310182120 Active 2023 Localized swelling, mass and lump, neck; Note: Date Diagnosed: 09/15/2023 1:02 PM (R22.1) Not Available [facility] 4 03:29:14 Neoplasm of uncertain behavior of thyroid gland 72326325 Active 2023 Neoplasm of uncertain behavior of thyroid gland; Note: Date Diagnosed: 09/15/2023 1:02 PM (D44.0) Not Available [facility] 4 03:29:14 Cervical lymphaden opathy 520453531 Active 2023 CHRIS TAYLOR MD [address] [facility] [place] [address], [place], [address] , [place] - [facility] [place] 4 16:53:50 Thyroid nodule 831219213 Active 2023 CHRIS TAYLOR MD [address] [place], [place] [address]A[facility] [address], [place], [address] , [place] - [facility] [place] 4 16:57:22 Papillary thyroid carcinoma 604807580 Active 2024 JAYSON FRANCO MD [address] [place] [address],[place] [address], [place], [address] , [place] - [facility] [place] 5 14:47:59 Dysphonia 97591120 Active 2024 JAYSON FRANCO MD [address] [place] [address],[place] [address], [place], [address] , [place] - [facility] [place] 5 12:18:37 Problem Notes None recorded. Procedures Surgical History Date Name Laterality Status Provider Name and Address Organization Details Recorded Time 07/03/2024 FOL_DP completed JAYSON FRANCO MD [address] [place], [place] [address]A[place] [address], [place], [address], [place] - [facility] [place] 07/03/2024 12:15:49 03/21/2024 FFL_RE completed CHRIS TAYLOR MD [address] [place], [place] [address]on [place] [address], [place], [address], [place] - [facility] [place] 03/21/2024 16:53:43 Imaging Results None recorded. Procedure [...] Updated DateTime 07/03/2024 170.18 cm 37.6 kg/m2 579426.17 g Angie Hughes [place] - [facility] 07/03/2024 11:42:18 Date Recorded Body height Body mass index (BMI) Body weight Provider Name and Address Organization Details Last Updated DateTime 03/21/2024 170.18 cm 39.2 kg/m2 085029.09 g Angie Hughes [place] - [facility] 03/21/2024 16:30:19 Social History None recorded. Functional Status None recorded. Mental Status None recorded. Family History Nothing Reported. Medical History No medical history recorded. Gynecological HistoryNo gynecological history recorded. Obstetrics History GPAL:G 0 P 0 0 0 0 Past Encounters Encounter ID Performer Location Encounter Start Date Encounter Closed Date Diagnosis/Indication Diagnosis SNOMED-CT Code Diagnosis ICD10 Code Diagnosis Note [id number] CHRIS TAYLOR MD [facility] [address] [place] [address] 03/21/2024 16:20:19 03/21/2024 16:39:20 Cervical lymphadenopathy 296702433 R59.0 I don't palpate any enlarged lymph nodes. Perhaps they were reactive due to prior liposcutio n. Will order a CT neck with contrast to evaluate for any concerning adenopathy . Thyroid nodule 538589315 E04.1 I recommend a dedicated ultrasound which likely will need to be followed by an USGFNA. [id number] JAYSON FRANCO MD [facility] of [address] [address] 07/03/2024 11:33:41 07/03/2024 12:19:12 Papillary thyroid carcinoma 190343447 C73 12mm left thyroid nodule Dysphonia 58464631 R49.9 Health Concerns Section Related Observation LastModified by Organization Detai ls LastModified Time None Recorded Concern Status LastModified by Organization Details LastModified Time None Recorded Advance Directives Directive None Recorded Payers Insurance Date Sequence Insurance Name Policy Number Policy Yoder Covered Member ID Yoder Member ID Guarantor Name [id number] [facility] HEALTH NET PLAN (MEDICAID HMO) [place] Liliana Y Orr Gamez [id number] Liliana Y Orr Gamez 10/12/[address] [facility] HEALTH NET PLAN (MEDICAID HMO) [place] Liliana Orr Gamez [id number] Liliana Y Orr Gamez 10/12/2023 1 [place] Liliana Orr Gamez [id number] Liliana Y Orr Gamez 06/30/2024 1 [place] Liliana Y Orr Gamez [id number] Liliana Y Orr Gamez Notes Date Note [...] are still enlarged. CHRIS TAYLOR MD [address] [address], [place], [address], [place] - [facility] 03/21/2024 17:01:02 07/03/2024 text/html patient of Dr Carr thyroid nodule 06/30/2023 ultrasound neck at [facility] thyroid lobe 8 x 11 x 10 mm nodule, TI RADS 5Left neck level 2 multiple atypical lymph nodes measuring 22 mm, 23 mm, 15 mmRight neck level 2 multiple lymph nodes largest 35 mm and 18 mm04/30/2024 [facility] 12 x 9 x 9 mm nodule TI RADS 512 CT [facility] node 14 mmLeft level 2A and 3 at the level of hyoid 15 mm lymph nodeRight level 2A lymph node 15 mmLeft lower pole thyroid nodule 1 cm06/01/2024 ultrasound-guided [facility] thyroid carcinoma Hx of liposuction to neck for gender affirmation JAYSON FRANCO MD [address] [place] [address],[place] [address], [place], [address], [place] [facility] 07/03/2024 12:19:13 OBGyn Episode No OBEpisode recorded.
[2024-10-25 12:09] LABS: Cholesterol 222 mg/dL (<200); HDL Cholesterol 36 mg/dL (>40); LDL Cholesterol Calculated 144 mg/dL (<100); Triglycerides 212 mg/dL (<150)
[2024-10-25 12:14] LABS: TSH reflex Free T4 2.38 uIU/mL (0.32-4.0)
[2024-10-25 13:03] LABS: CT PCR Urine NOT DETECTED (Not Detect.); NG PCR Urine NOT DETECTED (Not Detect.)
== END 2024-10-25 10:10 | disposition home or self-care (01) ==
LOC: HO.CHCLDS 10:09
PROVIDERS: PCP Pediatrics; Visit Provider Pediatrics
DX: C73 Malignant neoplasm of thyroid gland (principal); Z11.3 Encounter for screening for infections with a predominantly sexual mode of transmission
CPT/HCPCS: 36415; 80061; 84443; 87491; 87591

== ENCOUNTER 2025-01-03 11:05 | Outpatient (REF) | payer OTHER, SELFPAY ==
--- OUTSIDE RECORDS SUMMARY | 2025-01-03 12:41 | XMS_ITS | Clinical Summary ---
Author Organization [facility] Address [address] [address] Phone Care Team Providers Care Airport Guide Name Role Phone Yashira Mojica MD Primary Care Provi jani Allergies No known active allergies Medications cloNIDine HCL (CATAPRES) 0.1 MG tablet Take 0.1 mg by mouth 2 (two) times a day. Active FLUoxetine (PROZAC) 20 MG capsule Take 20 mg by mouth daily. Active melatonin 3 mg Tab Take 3 mg by mouth. Active spironolactone (ALDACTONE) 50 MG tablet Take 50 mg by mouth daily. Active Medication-Free TextIndications :BIKTARVY Indications: BIKTARVY Active omeprazole (PRILOSEC) 20 mg TbEC Take 20 mg by mouth daily before breakfast. Active oxyCODONE-aceta minophen (PERCOCET) 5-325 mg per tablet Take 1-2 tablets by mouth every 4 (four) hours as needed for pain (specific location in comments). Partial fill ok 16 tablet 10/06/2020 Active estradioL (VIVELLE-DOT) 0.1 mg/[address] 1 patch onto the skin 2 (two) times a week. Active Active Problems Problem Noted Date Diagnosed Date Gender dysphoria Family History Medical History Relation Comments Cancer Mother Relation Status Comments Father Alive Mother Social History Tobacco Use Types Packs/Day Years Used Date Smoking Tobacco: Some Days Cigarettes 0.5 11 Started: 12/2008; Last attempted to quit: 01/2020 Smokeless Tobacco: Never Tobacco Cessation:Ready to Q uit: Not Asked; Counseling Given: Not Answered Comments:occassionally still smokes a cigarette when drinking Alcohol Use Standard Drinks/Week Comments Yes 0 (1 standard drink = 0.6 oz pur e alcohol) 1-2/week Education Answer Date Recorded Are you interested in more education? Not on kallie e 08/27/2022 Are you concerned about learning? Not on file 08/27/2022 No 08/27/2022 No 08/27/2022 Digital Access Answer Date Recorded No 09/28/2022 No 09/28/2022 Reliable internet access at home? Not on file 09/28/2022 Device with a working camera? Not on file Sex and Gender Information Value Date Recorded Sex Assigned at Not on file Legal Sex Male 3:15 PM EDT Gender Identity Not on file Sexual Orientation Not on file Last Filed Vital Signs Vital Sign Reading Time Taken Comments Blood Pressure 138/82 06/27/2024 4:15 PM EST Pulse 74 06/27/2024 4:15 PM EST Temperature 36 C (96.8 F) 10/07/2020 11:48 AM EDT Respiratory Rate 18 10/07/2020 11:50 AM EDT Oxygen Saturation 100% 06/27/2024 4:15 PM EST Inhaled Oxygen Concentration - - Weight 101.6 kg (224 lb) 09/30/2020 9:18 AM EDT Height 170.2 cm (5' 7 ) 09/30/2020 9:18 AM EDT Body Mass Index 35.08 09/30/2020 9:18 AM EDT Plan of Treatment Health Maintenance Due Date Last Done Comments POTASSIUM LEVEL 1995 DEPRESSION SCREENING 2007 HEPATITIS C SCREENING 2013 HIV ONE-TIME SCREENING (18-65 YEARS) 2013 INFLUENZA VACCINE (#1) 2024 , 03/19/2022, 03/18/2021, Additional history exists SMOKING Hx and SMOKELESS TOBACCO SCREENING 06/27/2025 06/27/2024 Adult Td,Tdap Booster 09/29/2028 09/29/2018 PNEUMOCOCCAL VACCINES (0-49 years) (3 of 3 - PCV20 or PCV21) 2045 11/23/2018, 09/21/2018 HEPATITIS A VACCINES Aged Out 09/29/2018 No long er eligible based on patient's age to complete this topic MENINGOCOCCAL VACCINES (ACWY) Aged Out 11/23/2018, 09/21/2018 No longer eligibl e based on patient's age to complete this topic COVID-19 VACCINE Completed 05/24/2024, , 06/27/2020 HIB VACCINES Aged Out No longer eligi ble based on patient's age to complete this topic MENINGOCOCCAL VACCINES (B) Aged Out N o longer eligible based on patient's age to complete this topic Medical Devices Implanted Type Area Sports Photographer Device Identifier Shelf Expiration Date Model / Serial / Lot Implant Breast 755cc Smooth Round High Profile Extra - [id number] Implanted:Qty: 1 on 10/07/2020 by Dustin Moran MD at [facility] Right: Breast MENTOR JAMARCUS 07/18/2025 [id number] / [id number] / [id number] Implant Breast 755cc Smooth Round High Profile Extra - [id number] Implanted:Qty: 1 on 10/07/2020 by Dustin Moran MD at [facility] Left: Breast MENTOR JAMARCUS 07/18/2025 [id number] / / [id number] Insurance [address] [place] [address] [facility] C[address]CO [address] [place] [address] [address] [id number] [address] [id number] [address] [address] GABRIELA HARDWICK [address] GABRIELA HARDWICK [id number] 1 GABRIELA HARDWICK [id number] GABRIELA HARDWICK [address] G[place] [address] Advance Directives For more information, please contact: [phone] (9AM - 5PM [place], Tuesday-Tuesday) * Full Code (Latest Code Status on File) Date Activated Date Inactivated Comments 10/07/2020 7:12 AM Question Answer Comments Code Status Confirmed With: Other (specify below ) Code Discussion Comments: periop Care Teams Airport Guide Relationship Specialty Start Date End Date [place], Yashira Huerta MD [address] [place] [id number] PCP - General Family Medicine 02/04/20 Additional Source Comments The information contained in this document represents components of the legal health record. It is not the complete legal health record.[facility]
--- OUTSIDE RECORDS SUMMARY | 2025-01-03 12:41 | XMS_ITS | Encounter Summary ---
Author Organization [facility] Address [address] [place] [address] Phone Care Team Providers Care Swimming Pool Salesperson Name Role Phone Yashira Mojica MD Primary Care Provi jani Encounter Details Date Type Department Care Team (Late st Contact Info) Description 09/12/2020 Procedure Pass [facility], Ct Scan - [address] [address] Social History Tobacco Use Types Packs/Day Years Used Date Smoking Tobacco: Some Days Cigarettes 0.5 11 Started: 12/2008; Last attempted to quit: 01/2020 Smokeless Tobacco: Never Comments:occassionally still smokes a cigarette when drinking Alcohol Use Standard Drinks/Week Comments Yes 0 (1 standard drink = 0.6 oz pur e alcohol) 1-2/week Sex and Gender Information Value Date Recorded Sex Assigned at Not on file Legal Sex Male 3:15 PM EDT Gender Identity Not on file Sexual Orientation Not on file documented as of this encounter Plan of Treatment Not on file documented as of this encounter Visit Diagnoses Not on filedocumented in this encounter Care Teams Swimming Pool Salesperson Relationship Specialty Start Date End Date Yashira Mojica MD [address] [place] [address] PCP - General Family Medicine 02/04/20 documented as of this encounter Additional Source Comments The information contained in this document represents components of the legal health record. It is not the complete legal health record.[facility]
--- OUTSIDE RECORDS SUMMARY | 2025-01-03 12:41 | XMS_ITS | Clinical Summary ---
Author Organization [facility] [employer] [facility] Address [address] [place] [address] Care Team Providers Care Talent Acquisition Sourcer Name Role Phone Unavailable Primary Care Provider [...] Cervical Cancer Screening: P ap Smear 2016 HIV Screening 05/27/2023 Hepatitis C Screening 05/27/2023 Social Influencers of Health Screening 05/27/2023 Depression Screening 05/02/2024 COVID-19 Vaccine ( - 2023-2 5 season) [...] 5 Years) and At-Risk Patients (6 to 49 Years) Aged Out No longer eligible b ased on patient's age to complete this topic RSV Immunization Patients Un jani 20 months Aged Out No longer eligible b ased on patient's age to complete this topic Varicella Vaccines Aged Out No longer eligible based on patient's age to complete this topic
--- OUTSIDE RECORDS SUMMARY | 2025-01-03 12:41 | XMS_ITS | Encounter Summary ---
Author Organization [facility] Address [address] [facility] [address] [place] [address] Phone Care Team Providers Care Manager Clinical Services Name Role Phone [place], Yashira Huerta MD Primary Care Provi jani Reason for Referral * MRI/CAT Scan - Closed Specialty Diagnoses / Procedures Referred By Contjulia t Referred To Contact Radiology Diagnoses Transgender Procedures CT Face CHG CT SCAN,MAXILLOFACIAL AREA,W/O CONTRAST CHG CT SCAN, FACE/JAW CONTRAST CHG CT SCANS FACE/JAW COMBO CHG CT SCAN,LIMITED/LOCALIZED F/U STUDY Jenifer Long MD Phone: tel: fax: [address] [address] Phone: tel: Referral ID Status Reason Start Date Expiration Date Visits Re quested Visits Authorized [id number] Closed 11/20/2020 02/18/2021 1 1 Encounter Details Date Type Department Care Team (Latest Contact Info) Description 09/12/2020 Transcribe Orders Virtual Department [address] [place] [id number] Jenifer Long MD [address] [facility] [place] [address] Transgender (Primary Dx) Social History Tobacco Use Types Packs/Day Years Used Date Smoking Tobacco: Former Cigarettes Q uit: 01/2020 Alcohol Use Standard Drinks/Week Comments Yes 0 (1 standard drink = 0.6 oz pur e alcohol) 1-2/week Sex and Gender Information Value Date Recorded Sex Assigned at Not on file Legal Sex Male 3:15 PM EDT Gender Identity Not on file Sexual Orientation Not on file documented as of this encounter Plan of Treatment Not on file documented as of this encounter Results * CT FACE WITHOUT CONTRAST (12/04/2020 2:04 PM EDT) Anatomical Region Laterality Modality Face Computed Tomogra phy 12/04/2020 2:08 PM EDT Impressions 12/04/2020 2:26 PM EDT 1. Mildly enlarged bilateral level 2 lymph nodes which may be reactive. Mild prominence of the parapharyngeal soft tissues can be correlated with any signs of pharyngitis. No evidence of soft tissue masses. 2. Traces of mucosal thickening within maxillary sinuses. No other evidence of sinus disease. Narrative 12/04/2020 2:26 PM EDT TECHNIQUE: Diagnostic CT FACE WITHOUT CONTRAST HISTORY: Presurgical evaluation for cheek implants. COMPARISON: No prior. FINDINGS: Bones: No suspicious lytic or blastic lesions within the bones. No evidence of significant deformities. Paranasal sinuses: Traces of mucosal thickening within the maxillary sinuses. No air-fluid levels. The paranasal sinuses are otherwise clear. The ostiomeatal complexes are patent. Nasal: Mild nasal deviation to the right. No carolann bullosa. Visualized mastoid air cells: Clear. Soft tissues: Mildly enlarged level 2 lymph nodes bilaterally. The largest on the right measures approximately 13 mm in short axis and does contain a small fatty hilum (series 4, image 17, series 10, image 52). 2 level 2 lymph nodes on the left measure approximately 11-12 mm in the short axis (series 10, image 55). Paravertebral soft tissues are mildly prominent. Otherwise, no evidence of soft tissue masses. Procedure Note Horacio Stephenson MD - 12/04/2020 TECHNIQUE: Diagnostic CT FACE WITHOUT CONTRAST HISTORY: Presurgical evaluation for cheek implants. COMPARISON: No prior. FINDINGS: Bones: No suspicious lytic or blastic lesions within the bones. Noevidence of significant deformities. Paranasal sinuses: Traces of mucosal thickening within the maxillarysinuses. No air-fluid levels. The paranasal sinuses are otherwise clear.The ostiomeatal complexes are patent. Nasal: Mild nasal deviation to the right. No carolann bullosa. Visualized mastoid air cells: Clear. Soft tissues: Mildly enlarged level 2 lymph nodes bilaterally. The largeston the right measures approximately 13 mm in short axis and does contain asmall fatty hilum (series 4, image 17, series 10, image 52). 2 level 2lymph nodes on the left measure approximately 11-12 mm in the short axis(series 10, image 55). Paravertebral soft tissues are mildly prominent.Otherwise, no evidence of soft tissue masses. IMPRESSION: 1. Mildly enlarged bilateral level 2 lymph nodes which may be reactive.Mild prominence of the parapharyngeal soft tissues can be correlated withany signs of pharyngitis. No evidence of soft tissue masses. 2. Traces of mucosal thickening within maxillary sinuses. No otherevidence of sinus disease. Jenifer Long MD IMG CT HEAD/NECK Final Result documented in this encounter Visit Diagnoses Diagnosis Transgender- Primary Transgender documented in this encounter Care Teams Manager Clinical Services Relationship Specialty Start Date End Date Yashira Mojica MD [address] [place] [id number] PCP - General Family Medicine 02/04/20 documented as of this encounter Additional Source Comments The information contained in this document represents components of the legal health record. It is not the complete legal health record.[facility]
--- OUTSIDE RECORDS SUMMARY | 2025-01-03 12:41 | XMS_ITS | Encounter Summary ---
Author Organization [facility] Address [address] [facility] [address] [place] [address] Phone Care Team Providers Care Buyers' Agent Name Role Phone Yashira Mojica MD Primary Care Provi jani Encounter Details Date Type Department Care Team (Late st Contact Info) Description 10/07/2020 Procedure Pass [place] Admitting Dept - Virtual Department [address] [place] [address] Social History Tobacco Use Types Packs/Day Years [...] on filedocumented in this encounter Care Teams Buyers' Agent Relationship Specialty Start Date End Date Yashira Mojica MD [address] [place] [address] PCP - General Family Medicine 02/04/20 documented as of this encounter Additional Source Comments The information contained in this document represents components of the legal health record. It is not the complete legal health record.[facility]
[2025-01-03 14:05] LABS: MANUAL DIFF FLAG NO
[2025-01-03 14:10] LABS: Hematocrit 47.0 % (42.0-52.0); Hemoglobin 15.7 g/dl (14.0-18.0); Imm Gran Abs Auto 0.03 X10*3/uL (0.00-0.03); Imm Gran Pct Auto 0.4 % (0.0-0.4); Lymphocytes Absolute Auto 2.9 X10*3/uL (1.2-4.9); Mean Corpuscular HGB Conc 33.4 g/dl (31.0-36.0); Mean Corpuscular Hemoglobin 28.6 pg (27.0-33.0); Mean Corpuscular Volume 85.8 fL (80.0-98.0); NRBC Abs Auto 0.000 X10*3/uL (0.0-0.012); NRBC Pct Auto 0.0 /100WBC (0.0-0.2); Platelet Count 244 X10*3/uL (160-400); Red Blood Count 5.48 X10*6/uL (4.60-5.80); White Blood Count 8.3 X10*3/uL (4.8-10.8)
[2025-01-03 14:29] LABS: Alanine Aminotransferase 66 U/L (0-40); Albumin Level 5.2 g/dL (3.5-5.0); Alkaline Phosphatase 120 U/L (39-117); Anion Gap 14 (12-20); Aspartate Amino Transferase 38 U/L (5-37); Blood Urea Nitrogen 11 mg/dL (9-16); Calcium 9.8 mg/dL (8.4-10.2); Carbon Dioxide 26 mmol/L (22-29); Chloride 104 mmol/L (96-108); Estimated Glomerular Filt Rate > 60; Lipase 21 U/L (8-78); Potassium 3.7 mmol/L (3.3-5.1); Sodium 140 mmol/L (135-145); Total Protein 8.3 g/dL (6.5-8.0)
[2025-01-03 17:05] LABS: Free T4 (Free Thyroxine) 0.98 ng/dL (0.71-1.85)
== END 2025-01-03 11:06 | disposition home or self-care (01) ==
LOC: HO.CHCLDS 11:05
PROVIDERS: Visit Provider Pediatrics
DX: R10.11 Right upper quadrant pain (principal); Z13.29 Encounter for screening for other suspected endocrine disorder
CPT/HCPCS: 36415; 80048; 80076; 83690; 84439; 84443; 85025

== ENCOUNTER 2025-01-17 16:32 | Emergency (ER) | payer OTHER, SELFPAY ==
--- NOTE | ~2025-01-17 | XR_ITS ---
EXAMINATION: XR CHEST CLINICAL INFORMATION: cp COMPARISON: May 30, 2021 TECHNIQUE: Frontal view of the chest was obtained. FINDINGS: No significant abnormality is noted involving the heart, lungs, mediastinum, bony thorax or soft tissues. XR/XR chest 1V IMPRESSION: No acute disease Electronically signed by: Rafael Bundy MD 01/17/2025 05:02 PM EDT RP
--- NOTE | ~2025-01-17 | CT_ITS ---
CLINICAL HISTORY: hx of thyroid cancer, severe neck pain CT soft tissue neck with contrast Comparison: None provided Findings: The visualized intracranial contents are unremarkable. No prevertebral fluid. Epiglottis is within normal limits. Pharyngeal mucosal space and parapharyngeal fat are normal. Salivary glands are within normal limits. No sialoliths. Right thyroid lobe is unremarkable. Previous resection of left thyroid lobe. Visualized lung apices are clear. No acute fractures. Mild global questionable IMPRESSION: No acute findings. Previous resection of left thyroid lobe. This document has been electronically signed by: Francie Carroll MD on 01/17/2025 21:43:31
[2025-01-17 16:43] VITALS: BP 130/80; PULSE 100; O2SAT 99
--- NOTE | 2025-01-17 16:45 | ECG_ITS ---
Test Reason : CHEST PAIN Blood Pressure : */* mmHG Vent. Rate : 92 BPM Atrial Rate : 92 BPM P-R Int : 156 ms QRS Dur : 90 ms QT Int : 350 ms P-R-T Axes : 46 18 63 degrees QTcB Int : 432 ms Normal sinus rhythm Normal ECG When compared with ECG of 03-Sep-2024 17:12, QRS axis Shifted left Referred By: Juan David Araya Electronically Signed By: MEG RAMÍREZ
[2025-01-17 16:54] VITALS: BP 135/81; PULSE 93; RESP 14; TEMP 36.9; O2SAT 99; BMI 37.6
--- NOTE | 2025-01-17 17:11 | ED.CHESTPAIN ---
HPI - Chest Pain General Chief Complaint: Chest Pain Stated Complaint: chest pain x3days Time Seen by Provider: 01/17/25 16:44 Source: patient and EMS Mode of arrival: EMS Limitations: no limitations History of Present Illness ED Provider: DR. Araya HPI narrative: 29-year-old assigned at as a male transgender to a female presented from PCP office for left neck pain radiating to the chest x 2-3 days, patient declined any trauma to the neck, no fall, patient also been complaining of left-sided chest pain that is been localized to the chest neck pain and chest pain has been constant for the last 2-3 days, pain is associated with feeling nauseous and vomiting especially if she hold her neck to the left side. No recent travel, no lower extremity swelling or tenderness, no history of DVT or pulmonary embolism. Related Data Previous Rx's ?Medication ?Instructions ?Recorded famotidine 20 mg tablet 20 mg PO BID 90 days #180 tabs 04/23/24 lidocaine 5 % topical patch 1 patch topical DAILY #15 ea 01/17/25 naproxen 500 mg tablet 500 mg PO BID PRN pain #10 tabs 01/17/25 Allergies Allergy/AdvReac Type Severity Reaction Status Date / Time No Known Allergies Allergy Verified 01/17/25 17:05 Review of Systems Review of Systems: All other systems are reviewed and are negative Constitutional: Reports as per HPI and Reports no additional constitutional complaints Eyes: Reports as per HPI and Reports no additional eye complaints Reports system reviewed and no additional complaints, except as documented Cardiovascular: Reports as per HPI and Reports no additional cardiovascular complaints Respiratory: Reports as per HPI and Reports no additional respiratory complaints Gastrointestinal: Reports as per HPI and Reports no additional gastrointestinal complaints Genitourinary: Reports no additional female genitourinary complaints Musculoskeletal: Reports no additional musculoskeletal complaints Skin/Breast: Reports system reviewed and no additional complaints, except as docu Psychiatric: Reports no additional psychiatric complaints Endocrine: Reports no additional endocrine complaints Hematologic/Lymphatic: Reports no additional hematologic/lymphatic complaints Allergic/Immunologic: Reports no additional allergic/immunologic complaints Reports system reviewed and no additional complaints, except as documented and Reports Abnormal speech [facility] Past Medical History 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 Blood pressure elevated. Heart rate normal. Respiratory rate normal. Temperature normal. Oxygen saturation normal. Appearance: Alert. Oriented X3. No acute distress. Head: Normal external exam. Normocephalic. Atraumatic. No Pepper signs noted. No raccoon eyes noted Eyes: PERRLA. EOMI. Conjunctiva and sclera normal. Eyelids normal. ENT: TM's Normal. Pharynx normal. Uvula midline. Moist mucous membranes. No trismus noted. No drooling noted. No muffled voice noted. Neck: Normal inspection. Neck supple. FROM. No adenopathy. Thyroid Normal. No meningeal signs. No neck mass noted. CVS: Normal heart rate and rhythm. Heart sound normal. No murmurs noted. Pulses normal throughout. Respiratory: No respiratory distress. Painless inspiration. Breath sounds normal. No wheezes/rales/rhonchi noted. Chest nontender. No accessory muscle usage noted or decreased air movement noted. Abdomen: Soft and nontender. Bowel sounds normal in all 4 quadrants. No distention noted. No organomegaly noted. No visible injury noted. Back: No CVA tenderness. Full range of motion noted. Skin: Skin warm and dry. Normal skin color. Normal skin turgor. No rashes/lesions/lacerations noted. Extremities: No lower extremity edema. Extremities exhibit normal range of motion. Extremities nontender. Neuro: Oriented X 3. Cranial nerve exam: II-XII are grossly intact No motor deficit. No sensory deficit. Reflexes normal. Course Reevaluation(s) Reevaluation #1: 29-year-old female came in with left-sided neck pain radiating to the left arm and chest pain pain improved with ibuprofen/Tylenol in the emergency department. CT soft tissue neck await for official result Labs also unremarkable. Time: 20:50 Reevaluation #2: singed out to Dr. Jc Cortés CT result and dispo accordingly. Time: 21:05 Medications Administered Discontinued Medications Generic Name Dose Route Start Last Admin Trade Name Freq PRN Reason Stop Dose Admin Acetaminophen 1,000 mg in 100 mls @ 400 mls/hr 01/17/25 19:05 01/17/25 21:54 Ofirmev IV 01/17/25 19:19 400 mls/hr ONCE ONE Administration Ketorolac Tromethamine 15 mg 01/17/25 17:11 01/17/25 17:50 Ketorolac Tromethamine 15 Mg/Ml Vial IVPUSH 01/17/25 17:12 15 mg ONCE ONE Administration Lidocaine 1 patch 01/17/25 21:48 01/17/25 21:56 Lidocaine 4 % Patch Adh..Patch TRANSDERMA 01/17/25 21:49 1 patch ONCE ONE Administration Protocol Medical Decision Making Medical Decision Making [facility] Narrative: Patient is signed out to me pending CT imaging results. CT soft tissue neck was negative for any signs of neoplastic process. Patient will be discharged at this time. chisel worker was used for this encounter. Patient's pain is improving. Differential Diagnosis Differential Diagnoses: The differential diagnosis associated with the presentation includes (Cervical radiculopathy, soft tissue neck mass, costochondritis, ACS, pulmonary embolism, electrolyte derangement, severe anemia.) Admission/Observation Consideration of admission/observation: Escalation of care including admission/observation considered Lab Data [facility] Lab Attestation statement: I reviewed the patient's lab results. 01/17/25 17:23 01/17/25 17:23 Labs: Lab Results 01/17/25 Range/Units 17:23 WBC 10.2 (4.8-10.8) X10*3/uL RBC 5.24 (4.60-5.80) X10*6/uL Hgb 15.3 (14.0-18.0) g/dl Hct 43.5 (42.0-52.0) % MCV 83.0 (80.0-98.0) fL MCH 29.2 (27.0-33.0) pg MCHC 35.2 (31.0-36.0) g/dl RDW 13.2 (11.0-16.0) % Plt Count 232 (160-400) X10*3/uL MPV 10.2 (9.4-12.4) fL Immature Gran % (Auto) 0.5 H (0.0-0.4) % Neut % (Auto) 47.1 (45-73) % Lymph % (Auto) 43.3 H (20-40) % Putnam % (Auto) 8.0 (2-11) % Eos % (Auto) 0.8 (0-4) % Baso % (Auto) 0.3 (0-2) % Lymph # (Auto) 4.4 (1.2-4.9) X10*3/uL Putnam # (Auto) 0.8 (0.1-1.2) X10*3/uL Eos # (Auto) 0.1 (0.0-0.4) X10*3/uL Baso # (Auto) 0.0 (0.0-0.2) X10*3/uL Abs Immat Gran (auto) 0.05 H (0.00-0.03) X10*3/uL Absolute Neuts (auto) 4.8 (2.0-8.3) x10*3/uL Absolute Nucleated RBC 0.000 (0.0-0.012) X10*3/uL Nucleated RBC % (auto) 0.0 (0.0-0.2) /100WBC D-Dimer High Sensitivty < 150 NG/ML Sodium 144 (135-145) mmol/L Potassium 4.0 (3.3-5.1) mmol/L Chloride 110 H (96-108) mmol/L Carbon Dioxide 23 (22-29) mmol/L Anion Gap 15 (12-20) BUN 11 (9-16) mg/dL Creatinine 0.89 (0.5-1.4) mg/dL Estim Creat Clear Calc 144.1 Estimated GFR > 60 Random Glucose 87 (60-115) mg/dL Calcium 9.5 (8.4-10.2) mg/dL Total Bilirubin 0.4 (0.0-1.0) mg/dL Direct Bilirubin 0.1 (0.0-0.5) mg/dL AST 39 H (5-37) U/L ALT 55 H (0-40) U/L Alkaline Phosphatase 111 (39-117) U/L Troponin I High Sens < 2.7 (<3.5-35.0) ng/L Total Protein 8.3 H (6.5-8.0) g/dL Albumin 5.0 (3.5-5.0) g/dL Lipase 24 (8-78) U/L Independent Interpretation I performed an independent interpretation of an: EKG (Normal sinus rhythm at 92 beats per minutes, normal intervals, no ST-T changes.), Plain X-Ray (Chest: No acute disease.) and CT Scan (Neck soft tissue: No acute soft tissue pathology.) Radiology Impression Discussion of test interpretation with radiology: I have reviewed the radiologist's reading. Discharge Plan Discharge Clinical Impression: Left cervical radiculopathy Patient Disposition: Home, Self-Care Instructions: Cervical Radiculopathy (ED) Prescriptions: New naproxen 500 mg tablet 500 mg PO BID PRN (Reason: pain) Qty: 10 0RF lidocaine 5 % adhesive patch,medicated 1 patch topical DAILY Qty: 15 0RF Rx Instructions: leave on most painful area for up to 12 hrs No Action famotidine 20 mg tablet 20 mg PO BID 90 Days Qty: 180 0RF Print Language: Maori
[2025-01-17 17:28] LABS: MANUAL DIFF FLAG NO
[2025-01-17 17:34] LABS: Hematocrit 43.5 % (42.0-52.0); Hemoglobin 15.3 g/dl (14.0-18.0); Imm Gran Abs Auto 0.05 X10*3/uL (0.00-0.03); Imm Gran Pct Auto 0.5 % (0.0-0.4); Lymphocytes Absolute Auto 4.4 X10*3/uL (1.2-4.9); Mean Corpuscular HGB Conc 35.2 g/dl (31.0-36.0); Mean Corpuscular Hemoglobin 29.2 pg (27.0-33.0); Mean Corpuscular Volume 83.0 fL (80.0-98.0); NRBC Abs Auto 0.000 X10*3/uL (0.0-0.012); NRBC Pct Auto 0.0 /100WBC (0.0-0.2); Platelet Count 232 X10*3/uL (160-400); Red Blood Count 5.24 X10*6/uL (4.60-5.80); White Blood Count 10.2 X10*3/uL (4.8-10.8)
--- OUTSIDE RECORDS SUMMARY | 2025-01-17 17:34 | XMS_ITS | Clinical Summary ---
Author Organization [facility] it[facility] Address [address] [place] [address] Care Team Providers Care Derrick Worker Name Role Phone Unavailable Primary Care Provider [...]
--- OUTSIDE RECORDS SUMMARY | 2025-01-17 17:34 | XMS_ITS | Encounter Summary ---
Author Organization [facility] Address [address] [place] [address] Phone Care Team Providers Care Rn Perioperative Name Role Phone Yashira Mojica MD Primary Care Provi jani Encounter Details Date Type Department Care Team (Late st Contact Info) Description 09/12/2020 Procedure Pass [facility], Ct Scan - [address] [address] Social History Tobacco Use Types Packs/Day Years [...] on filedocumented in this encounter Care Teams Rn Perioperative Relationship Specialty Start Date End Date Yashira Mojica MD [address] [place] [address] PCP - General Family Medicine 02/04/20 documented as of this encounter Additional Source Comments The information contained in this document represents components of the legal health record. It is not the complete legal health record.[facility]
--- OUTSIDE RECORDS SUMMARY | 2025-01-17 17:34 | XMS_ITS | Encounter Summary ---
Author Organization [facility] Address [address] [facility] [address] [place] [address] Phone Care Team Providers Care Clinical Lab Specialist Name Role Phone Yashira Mojica MD Primary Care Provi jani Encounter Details Date Type Department Care Team (Late st Contact Info) Description 10/07/2020 Procedure Pass OR Admitting Dept - Virtual Department [address] [place] [address] Social History Tobacco Use Types Packs/Day Years [...] on filedocumented in this encounter Care Teams Clinical Lab Specialist Relationship Specialty Start Date End Date Yashira Mojica MD [address] [place] [address] PCP - General Family Medicine 02/04/20 documented as of this encounter Additional Source Comments The information contained in this document represents components of the legal health record. It is not the complete legal health record.[facility]
--- OUTSIDE RECORDS SUMMARY | 2025-01-17 17:34 | XMS_ITS | Clinical Summary ---
Author Organization [facility] Address [address] [address] Phone Care Team Providers Care Director Cloud Transformation Name Role Phone Yashira Mojica MD Primary [...] this topic Medical Devices Implanted Type Area Banquet Server Device Identifier Shelf Expiration Date Model / Serial / Lot Implant Breast 755cc Smooth Round High Profile Extra - [id number] Implanted:Qty: 1 on 10/07/2020 by Dustin Moran MD at [facility] Right: Breast MENTOR JAMARCUS 07/18/2025 [id number] / [id number] / [id number] Implant Breast 755cc Smooth Round High Profile Extra - [id number] Implanted:Qty: 1 on 10/07/2020 by Dustin Moran MD at [facility] Left: Breast MENTOR JAMARCUS 07/18/2025 [id number] / / [id number] Insurance [address] [place] [address] [facility] C[address] [place] [address] 1 [address] [address] [address] [address] [address]RI[address]A HARDWICK [address] [address]RIELA HARDWICK [address] [place] [address]ARDWICK [address] 1 [address]ABRIELA HARDWICK [address] [address]WICK [address] [address]ARDW[place] [address] Advance Directives For more information, please contact: [phone] (9AM - 5PM [place], Tuesday-Tuesday) * Full Code (Latest Code Status on File) Date Activated Date Inactivated Comments 10/07/2020 7:12 AM Question Answer Comments Code Status Confirmed With: Other (specify below ) Code Discussion Comments: periop Care Teams Director Cloud Transformation Relationship Specialty Start Date End Date [place], Yashira Huerta MD [address] [place] [address] PCP - General Family Medicine 02/04/20 Additional Source Comments The information contained in this document represents components of the legal health record. It is not the complete legal health record.[facility]
[2025-01-17 17:44] LABS: Alanine Aminotransferase 55 U/L (0-40); Albumin Level 5.0 g/dL (3.5-5.0); Alkaline Phosphatase 111 U/L (39-117); Anion Gap 15 (12-20); Aspartate Amino Transferase 39 U/L (5-37); Blood Urea Nitrogen 11 mg/dL (9-16); Calcium 9.5 mg/dL (8.4-10.2); Carbon Dioxide 23 mmol/L (22-29); Chloride 110 mmol/L (96-108); Creatinine Clr Calc Pharmacy 144.1; Estimated Glomerular Filt Rate > 60; Lipase 24 U/L (8-78); Potassium 4.0 mmol/L (3.3-5.1); Sodium 144 mmol/L (135-145); Total Protein 8.3 g/dL (6.5-8.0)
[2025-01-17 17:52] LABS: Troponin-I High Sensitivity < 2.7 ng/L (<3.5-35.0)
[2025-01-17 19:30] LABS: D Dimer High Sensitivity < 150 NG/ML
[2025-01-17 21:05] VITALS: BP 121/66; PULSE 66; RESP 16; TEMP 36.7; O2SAT 98
--- NOTE | 2025-01-17 21:30 | ED_ITS ---
HPI - Chest Pain General Chief Complaint: Chest Pain Stated Complaint: chest pain x3days Time Seen by Provider: 01/17/25 16:44 Source: patient and EMS Mode of arrival: EMS Limitations: no limitations Related Data Previous Rx's ?Medication ?Instructions ?Recorded famotidine 20 mg tablet 20 mg PO BID 90 days #180 ta bs 04/23/24 naproxen 500 mg tablet 500 mg PO BID PRN pain #10 t abs 01/17/25 Allergies Allergy/AdvReac Type Severity Reaction Status Date / Time No Known Allergies Allergy Verified 01/17/25 17:05 PMFSH Past Medical History 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 Alcohol intake: current Alcohol intake frequency: a few times a week Alcohol type: beer Substance Use Type: Marijuana Advance Directives: No Advance Directives Information Provided: No Current occupational status: student Physical Exam 2 Vital Signs: Vital Signs: Last Vital Signs Temp 98.1 F 01/17/25 21:05 Pulse 66 01/17/25 21:05 Resp 16 01/17/25 21:05 BP 121/66 01/17/25 21:05 Pulse Ox 98 01/17/25 21:05 O2 Del Method Room Air 01/17/25 21:05 BMI result Body Mass Index 37.6 Medications Administered Discontinued Medications Generic Name Dose Route Start Last Admin Trade Name Freq PRN Reason Stop Dose Admin Ketorolac Tromethamine 15 mg 01/17/25 17:11 01/17/25 17:50 Ketorolac Tromethamine 15 Mg/Ml Vial IVPUSH 01/17/25 17:12 15 mg ONCE ONE Administration Medical Decision Making Medical Decision Making MDM Narrative: Patient is signed out to me pending CT neck imaging results. Lab Data 01/17/25 17:23 01/17/25 17:23 Labs: Lab Results 01/17/25 Range/Units 17:23 WBC 10.2 (4.8-10.8) X10*3/uL RBC 5.24 (4.60-5.80) X10*6/uL Hgb 15.3 (14.0-18.0) g/dl Hct 43.5 (42.0-52.0) % MCV 83.0 (80.0-98.0) fL MCH 29.2 (27.0-33.0) pg MCHC 35.2 (31.0-36.0) g/dl RDW 13.2 (11.0-16.0) % Plt Count 232 (160-400) X10*3/uL MPV 10.2 (9.4-12.4) fL Immature Gran % (Auto) 0.5 H (0.0-0.4) % Neut % (Auto) 47.1 (45-73) % Lymph % (Auto) 43.3 H (20-40) % [place] % (Auto) 8.0 (2-11) % Eos % (Auto) 0.8 (0-4) % Baso % (Auto) 0.3 (0-2) % Lymph # (Auto) 4.4 (1.2-4.9) X10*3/uL [place] # (Auto) 0.8 (0.1-1.2) X10*3/uL Eos # (Auto) 0.1 (0.0-0.4) X10*3/uL Baso # (Auto) 0.0 (0.0-0.2) X10*3/uL Abs Immat Gran (auto) 0.05 H (0.00-0.03) X10*3/uL Absolute Neuts (auto) 4.8 (2.0-8.3) x10*3/uL Absolute Nucleated RBC 0.000 (0.0-0.012) X10*3/uL Nucleated RBC % (auto) 0.0 (0.0-0.2) /100WBC D-Dimer High Sensitivty < 150 NG/ML Sodium 144 (135-145) mmol/L Potassium 4.0 (3.3-5.1) mmol/L Chloride 110 H (96-108) mmol/L Carbon Dioxide 23 (22-29) mmol/L Anion Gap 15 (12-20) BUN 11 (9-16) mg/dL Creatinine 0.89 (0.5-1.4) mg/dL Estim Creat Clear Calc 144.1 Estimated GFR > 60 Random Glucose 87 (60-115) mg/dL Calcium 9.5 (8.4-10.2) mg/dL Total Bilirubin 0.4 (0.0-1.0) mg/dL Direct Bilirubin 0.1 (0.0-0.5) mg/dL AST 39 H (5-37) U/L ALT 55 H (0-40) U/L Alkaline Phosphatase 111 (39-117) U/L Troponin I High Sens < 2.7 (<3.5-35.0) ng/L Total Protein 8.3 H (6.5-8.0) g/dL Albumin 5.0 (3.5-5.0) g/dL Lipase 24 (8-78) U/L Discharge Plan Discharge Clinical Impression: Left cervical radiculopathy Patient Disposition: Home, Self-Care Instructions: Cervical Radiculopathy (ED) Prescriptions: New naproxen 500 mg tablet 500 mg PO BID PRN (Reason: pain) Qty: 10 0RF No Action famotidine 20 mg tablet 20 mg PO BID 90 Days Qty: 180 0RF Print Language: Tajik
[2025-01-17] MEDS: Lidocaine 4 % Patch ADH..PATCH 1 PATCH TRANSDERMA (21:56)
[2025-01-17 21:58] LABS: Appearance Urine Clear; Glucose Urine UA Negative (Negative); PH 6.5 (5.0-9.0); Specific Gravity - Urine >= 1.030 (1.005-1.025)
[2025-01-17 22:17] VITALS: BP 121/66; PULSE 66; RESP 16; TEMP 36.7; O2SAT 98
== END 2025-01-17 22:22 | disposition home or self-care (01) ==
PROVIDERS: Emergency Medicine; Emergency Provider Student in an Organized Health Care Education/Training Program
DX: M54.12 Radiculopathy, cervical region (principal); R07.89 Other chest pain; M54.2 Cervicalgia; Z79.899 Other long term (current) drug therapy
CPT/HCPCS: 36415; 70491; 71045; 80048; 80076; 81003; 83690; 84484; 85025; 85379; 93005; 96365; 96375; 99284; 99285; J0131; J1885

== ENCOUNTER → 2025-01-17 16:45 | Outpatient (BNV) | payer OTHER, SELFPAY | PROVIDERS: Emergency Provider Emergency Medicine; Visit Provider Radiology Diagnostic Radiology | DX: Z85.850 Personal history of malignant neoplasm of thyroid (principal); M54.2 Cervicalgia; R07.9 Chest pain, unspecified | CPT/HCPCS: 70491; 71045 ==

== ENCOUNTER → 2025-01-17 16:45 | Outpatient (BNV) | payer OTHER, SELFPAY | PROVIDERS: Emergency Provider Student in an Organized Health Care Education/Training Program; Visit Provider Internal Medicine | DX: R07.9 Chest pain, unspecified (principal) | CPT/HCPCS: 93010 ==

== ENCOUNTER 2025-01-23 08:55 | Outpatient (REF) | payer OTHER, SELFPAY ==
--- NOTE | ~2025-01-23 | US_ITS ---
EXAMINATION: US ABDOMEN COMPLETE CLINICAL INFORMATION: Right upper quadrant pain, rule out cholecystitis, gallstones. COMPARISON: Abdomen US 06/14/2024. TECHNIQUE: Real-time imaging of the abdominal viscera. FINDINGS: PANCREAS: Visualized portions are unremarkable. ABDOMINAL AORTA: The proximal, mid aspects are poorly seen. The distal is normal in caliber. There is mild calcific atherosclerosis. INFERIOR VENA CAVA: Visualized portions are normal. LIVER: The liver is normal in size. Right hepatic lobe measures 16.0 cm. The liver contour is normal. There is diffuse increased liver parenchymal echogenicity, consistent with hepatic steatosis. No focal hepatic lesion. There is no intrahepatic biliary duct dilatation seen. Hepatopedal flow in the main portal vein. GALLBLADDER: The gallbladder is physiologically distended without evidence of stones, sludge, polyps, wall thickening or pericholecystic fluid. Negative sonographic Trevizo's sign. COMMON BILE DUCT: Normal in caliber measuring 0.4 cm in diameter. RIGHT KIDNEY: No hydronephrosis. No renal calculi or focal parenchymal lesions. The kidney measures 12.4 cm in maximum dimension. LEFT KIDNEY: No hydronephrosis. No renal calculi or focal parenchymal lesions. The kidney measures 11.8 cm in maximum dimension. SPLEEN: The spleen measures 11.0 cm in maximum dimension. FREE FLUID: None. US/US abdomen complete IMPRESSION: 1. Mild diffuse fatty infiltration of the liver. No suspicious liver lesion. 2. Normal gallbladder and bile ducts. 3. Remainder the examination is normal. Electronically signed by: Pradeep Cartwright MD 01/23/2025 09:52 AM EDT
--- OUTSIDE RECORDS SUMMARY | 2025-01-23 10:30 | XMS_ITS | Clinical Summary ---
Author Organization [facility] Address [address] [address] Phone Care Team Providers Care Security Sales Manager Name Role Phone Yashira Mojica MD Primary [...] this topic Medical Devices Implanted Type Area Seal Skinner Device Identifier Shelf Expiration Date Model / Serial / Lot Implant Breast 755cc Smooth Round High Profile Extra - [id number] Implanted:Qty: 1 on 10/07/2020 by Dustin Moran MD at [facility] Right: Breast MENTOR JAMARCUS 07/18/2025 [id number] / [id number] / [id number] Implant Breast 755cc Smooth Round High Profile Extra - [id number] Implanted:Qty: 1 on 10/07/2020 by Dustin Moran MD at [facility] Left: Breast MENTOR JAMARCUS 07/18/2025 [id number] / / [id number] Insurance [address] [place] [address] [facility] C3 [address]CO [address] [place] [address] 1 G[address]RIELA HARDWICK [address] GABRIELA HARDWICK [address] GABRIELA HARDWICK [address] GABRIELA HARDWICK [address] [place] [address] 1 [address]RIELA HARDWICK [address] [place] [address] [address] G[place]A [address] [address] Advance Directives For more information, please contact: [phone] (9AM - 5PM [place], Tuesday-Tuesday) * Full Code (Latest Code Status on File) Date Activated Date Inactivated Comments 10/07/2020 7:12 AM Question Answer Comments Code Status Confirmed With: Other (specify below ) Code Discussion Comments: periop Care Teams Security Sales Manager Relationship Specialty Start Date End Date [place], Yashira Huerta MD [address] [place] [address] PCP - General Family Medicine 02/04/20 Additional Source Comments The information contained in this document represents components of the legal health record. It is not the complete legal health record.[facility]
--- OUTSIDE RECORDS SUMMARY | 2025-01-23 10:30 | XMS_ITS | Data Portability ---
Author Organization [facility], Allergy Address [address] [place] [address] Care Team Providers Care Generating Station Mechanic Name Role Phone AI MATTHEWS Primary Care [...] Farnaz Lenz MD, [facility], [place], [address], 15:47:45 Procedures None recorded. Surgeries None recorded. Imaging CT, neck, soft tissue, w/ contrast 2023 024 [facility] Radiology (Scheduling, Multiplte Sites), [address] [place], [address], 4 14:58:47 US, thyroid - please perform dedicated thyroid ultrasound 2023 024 [facility] Radiology (Scheduling, Multiplte Sites), [address] [place] [address], [address], 4 11:24:18 Medication Orders None recorded. Patient [...] thyro id No observ ation record ed. [facility] [address] [place], [address], 05/07/2024 09:10:25 04/30/20 24 04/30/2024 CT, neck, soft tissu e, w/ contr ast No observ ation record ed. [address], [address], 05/07/2024 09:10:26 06/01/19 25 06/01/2024 fine needl e aspir ation , ultra sound guide d, thyro id (PROC ) No observ ation record ed. [facility] (Intervention al Radiology) [address] [place] [address], [address], 06/05/2024 11:30:21 Result Notes None recorded. Problems Name Problem SNOMED Code Status Onset Date Resolution Date Notes Provider Name and Address Organization Details Recorded Time Mass of neck 997251166 Active 2023 Localized swelling, mass and lump, neck; Note: Date Diagnosed: 09/15/2023 1:02 PM (R22.1) Not Available [facility] 08/02/202 4 03:29:14 Neck swelling 938819738 Active 2023 Localized swelling, mass and lump, neck; Note: Date Diagnosed: 09/15/2023 1:02 PM (R22.1) Not Available [facility] 4 03:29:14 Neoplasm of uncertain behavior of thyroid gland 63772628 Active 2023 Neoplasm of uncertain behavior of thyroid gland; Note: Date Diagnosed: 09/15/2023 1:02 PM (D44.0) Not Available [facility] 4 03:29:14 Cervical lymphaden opathy 045983305 Active 2023 CHRIS TAYLOR MD [address] [facility] [address],[place] [address], [place], [address] , [place] - [facility] 4 16:53:50 Thyroid nodule 187171599 Active 2023 CHRIS TAYLOR MD [address] [place], [place] [address] [place] [address], [place], [address] , [place] - [facility] 4 16:57:22 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 Procedures Surgical History Date Name Laterality Status Provider Name and Address Organization Details Recorded Time 07/03/2024 FOL_DP completed JAYSON FRANCO MD [address] [place], [place] [address] [place] [address], [place], [address], [place] - [facility] 07/03/2024 12:15:49 03/21/2024 FFL_RE completed CHRIS TAYLOR MD [address] [place], [place] [address]on [place] [address], [place], [address], [place] - [facility] 03/21/2024 16:53:43 Imaging Results None recorded. Procedure [...] Updated DateTime 07/03/2024 170.18 cm 37.6 kg/m2 559158.17 g Angie Hughes [place] [facility] 07/03/2024 11:42:18 Date Recorded Body height Body mass index (BMI) Body weight Provider Name and Address Organization Details Last Updated DateTime 03/21/2024 170.18 cm 39.2 kg/m2 305251.09 g Angie Hughes [place] [facility] 03/21/2024 16:30:19 Social History None recorded. Functional Status None recorded. Mental Status None recorded. Family History Nothing Reported. Medical History No medical history recorded. Gynecological HistoryNo gynecological history recorded. Obstetrics History GPAL:G 0 P 0 0 0 0 Past Encounters Encounter ID Performer Location Encounter Start Date Encounter Closed Date Diagnosis/Indication Diagnosis SNOMED-CT Code Diagnosis ICD10 Code Diagnosis IMO Codes Diagnosis Note [id number] CHRIS TAYLOR MD [facility] [address] [place] [address] 03/21/2024 16:20:19 03/21/2024 16:39:20 Cervical lymphadenopathy 544993198 R59.0 I don't palpate any enlarged lymph nodes. Perhaps they were reactive due to prior liposcutio n. Will order a CT neck with contrast to evaluate for any concerning adenopathy . Thyroid nodule 500797858 E04.1 I recommend a dedicated ultrasound which likely will need to be followed by an USGFNA. [id number] JAYSON FRANCO MD [facility] [address] [place] [address] 07/03/2024 11:33:41 07/03/2024 12:19:12 Papillary thyroid carcinoma 182318125 C73 12mm left thyroid nodule Dysphonia 81674612 R49.9 Health Concerns Section Related Observation LastModified by Organization Detai ls LastModified Time None Recorded Concern Status LastModified by Organization Details LastModified Time None Recorded Advance Directives Directive None Recorded Payers Insurance Date Sequence Insurance Name Policy Number Policy Yoder Covered Member ID Yoedr Member ID Guarantor Name [id number] [facility] (MEDICAID HMO) [employer] Liliana Y Orr Gamez [id number] Liliana Y Orr Gamez 10/12/[address] [facility] (MEDICAID HMO) [employer] Liliana Orr Gamez [id number] Liliana Y Orr Gamez 10/12/2023 1 [place] [facility] Liliana Orr Gamez [id number] Liliana Y Orr Gamez 06/30/2024 1 [place] [facility] Liliana Y Orr Gamez [id number] Liliana Y Orr Gamez Notes Date Note Type Note Provider Name and Address Organization Details Recorded Time 03/21/2024 text/html ROS as noted in the HPI She uses she/her pronouns Hx of cervical lymphadenopathy with abnormal lymph nodes on prior US. Was seen by Dr. Candelaria and then was lost to f/u. Incidental TR5 thyroid nodule was also seen on neck US. Hx of liposuction to neck. She feels lymph nodes are still enlarged. CHRIS TAYLOR MD [address] [place] [address], [place], [address], [place] - [facility] 03/21/2024 17:01:02 07/03/2024 text/html ROS as noted in the HPI patient of Dr Velizft thyroid nodule 06/30/2023 ultrasound neck at [facility] thyroid lobe 8 x 11 x 10 mm nodule, TI RADS 5Left neck level 2 multiple atypical lymph nodes measuring 22 mm, 23 mm, 15 mmRight neck level 2 multiple lymph nodes largest 35 mm and 18 mm04/30/[facility] thyroid 12 x 9 x 9 mm nodule TI RADS 512 CT [facility] 14 mmLeft level 2A and 3 at the level of hyoid 15 mm lymph nodeRight level 2A lymph node 15 mmLeft lower pole thyroid nodule 1 cm06/01/2024 ultrasound[facility] Hx of liposuction to neck for gender affirmation JAYSON FRANCO MD [address] [facility],[place] [address], [place], [address], [place] - [facility] 07/03/2024 12:19:13 OBGyn Episode No OBEpisode recorded.
--- OUTSIDE RECORDS SUMMARY | 2025-01-23 10:30 | XMS_ITS | Clinical Summary ---
Author Organization Beryl Trochet [facility] ity Address [address] [place] [address] Care Team Providers Care Skip Locator Name Role Phone Unavailable Primary Care Provider [...]
--- OUTSIDE RECORDS SUMMARY | 2025-01-23 10:30 | XMS_ITS | Encounter Summary ---
Author Organization [facility] Address [address] [place] [address] Phone Care Team Providers Care Bleacher Pulp Name Role Phone Yashira Mojica MD Primary Care Provi jani Encounter Details Date Type Department Care Team (Late st Contact Info) Description 09/12/2020 Procedure Pass [facility], Ct Scan - [facility] [address] [place] [address] Social History Tobacco Use Types Packs/Day Years [...] on filedocumented in this encounter Care Teams Bleacher Pulp Relationship Specialty Start Date End Date Yashira Mojica MD [address] [place] [address] PCP - General Family Medicine 02/04/20 documented as of this encounter Additional Source Comments The information contained in this document represents components of the legal health record. It is not the complete legal health record.[facility]
--- OUTSIDE RECORDS SUMMARY | 2025-01-23 10:30 | XMS_ITS | Encounter Summary ---
Author Organization [facility] Address [address] [facility] [address] [place] [address] Phone Care Team Providers Care Battery Checker Name Role Phone Yashira Mojica MD Primary Care Provi jani Encounter Details Date Type Department Care Team (Late st Contact Info) Description 10/07/2020 Procedure Pass OR Admitting Dept - Virtual Department [address] [place] [address] Social History Tobacco Use Types Packs/Day Years [...] on filedocumented in this encounter Care Teams Battery Checker Relationship Specialty Start Date End Date Yashira Mojica MD [address] [place] [address] PCP - General Family Medicine 02/04/20 documented as of this encounter Additional Source Comments The information contained in this document represents components of the legal health record. It is not the complete legal health record.[facility]
--- OUTSIDE RECORDS SUMMARY | 2025-01-23 10:30 | XMS_ITS | Encounter Summary ---
Author Organization [facility] Address [address] [facility] [address] [place] [address] Phone Care Team Providers Care Claim Trainee Name Role Phone [place], Yashira Huerta MD Primary Care Provi jani Reason for Referral * MRI/CAT Scan - Closed Specialty Diagnoses / Procedures Referred By Contjulia t Referred To Contact Radiology Diagnoses Transgender Procedures CT Face CHG CT SCAN,MAXILLOFACIAL AREA,W/O CONTRAST CHG CT SCAN, FACE/JAW CONTRAST CHG CT SCANS FACE/JAW COMBO CHG CT SCAN,LIMITED/LOCALIZED F/U STUDY Jenifer Long MD Phone: tel: fax: [address] [address] Phone: tel: Referral ID Status Reason Start Date Expiration Date Visits Re quested Visits Authorized [id number] Closed 11/20/2020 02/18/2021 1 1 Encounter Details Date Type Department Care Team (Latest Contact Info) Description 09/12/2020 Transcribe Orders Virtual Department [address] [place] [address] Jenifer Long MD [address] [facility] [place] [address] Transgender (Primary Dx) Social History [...] Transgender documented in this encounter Care Teams Claim Trainee Relationship Specialty Start Date End Date Yashira Mojica MD [address] [place] [address] PCP - General Family Medicine 02/04/20 documented as of this encounter Additional Source Comments The information contained in this document represents components of the legal health record. It is not the complete legal health record.[facility]
== END 2025-01-23 08:56 | disposition home or self-care (01) ==
LOC: HO.US 08:55
PROVIDERS: PCP Pediatrics; Visit Provider Pediatrics
DX: R10.11 Right upper quadrant pain (principal)
CPT/HCPCS: 76700

== ENCOUNTER → 2025-01-23 09:00 | Outpatient (BNV) | payer OTHER, SELFPAY | PROVIDERS: PCP Pediatrics; Visit Provider Radiology Diagnostic Radiology | DX: K76.0 Fatty (change of) liver, not elsewhere classified (principal); R10.11 Right upper quadrant pain | CPT/HCPCS: 76700 ==

== ENCOUNTER 2025-02-07 18:16 | Outpatient (REF) | payer OTHER, SELFPAY ==
[2025-02-08 03:44] LABS: CT PCR Urine NOT DETECTED (Not Detect.); NG PCR Urine NOT DETECTED (Not Detect.)
[2025-02-11 22:53] LABS: C.Trachomatis RNA TMA, Rectal NOT DETECTED; N.Gonorrhoeae RNA TMA, Rectal NOT DETECTED
== END 2025-02-07 18:17 | disposition home or self-care (01) ==
LOC: HO.HHCLNP 18:16
PROVIDERS: Visit Provider Advanced Practice Midwife
DX: Z20.2 Contact with and (suspected) exposure to infections with a predominantly sexual mode of transmission (principal)
CPT/HCPCS: 87491; 87591

== ENCOUNTER 2025-03-25 16:17 | Outpatient (REF) | payer OTHER, SELFPAY ==
--- OUTSIDE RECORDS SUMMARY | 2025-03-25 20:23 | XMS_ITS | Clinical Summary ---
Author [facility] Address [address] [place] [address] Care Team Providers Care Access Services Assistant Name Role Phone Unavailable Primary Care Provider [...] Cervical Cancer Screening: P ap Smear 2016 HPV Vaccines (1 - 3-dose SCD M series) 2022 HIV Screening 05/27/2023 Hepatitis C Screening 05/27/2023 Social Influencers of Health Screening 05/27/2023 Depression Screening 05/02/2024 COVID-19 Vaccine (1 - 2024-2 6 season) 2024 Influenza Vaccine (#1) 2024 RSV Immunization Adult Patie nts (1 - 1-dose 75+ series) 2070 HIB Vaccines Aged Out No longer eligi [...]
--- OUTSIDE RECORDS SUMMARY | 2025-03-25 20:24 | XMS_ITS | Encounter Summary ---
Author Organization [facility] Address [address] [facility] [address] [place] [address] Phone Care Team Providers Care Drive In Teller Name Role Phone Gal[place], Yashira Huerta MD Primary Care Provi jani Reason for Referral * MRI/CAT Scan - Closed Specialty Diagnoses / Procedures Referred By Contjulia t Referred To Contact Radiology Diagnoses Transgender Procedures CT Face CHG CT SCAN,MAXILLOFACIAL AREA,W/O CONTRAST CHG CT SCAN, FACE/JAW CONTRAST CHG CT SCANS FACE/JAW COMBO CHG CT SCAN,LIMITED/LOCALIZED F/U STUDY Jenifer Long MD Phone: tel: fax: [address] [address] Phone: tel: Referral ID Status Reason Start Date Expiration Date Visits Re quested Visits Authorized [id number] Closed 11/20/2020 02/18/2021 1 1 Encounter Details Date Type Department Care Team (Latest Contact Info) Description 09/12/2020 Transcribe Orders Virtual Department [address] [place] [address] Jenifer Long MD [address] [facility] [place] [address] Transgender (Primary Dx) Social History [...] Transgender documented in this encounter Care Teams Drive In Teller Relationship Specialty Start Date End Date Yashira Mojica MD [address] [place] [address] PCP - General Family Medicine 02/04/20 documented as of this encounter Additional Source Comments The information contained in this document represents components of the legal health record. It is not the complete legal health record.[facility]
--- OUTSIDE RECORDS SUMMARY | 2025-03-25 20:24 | XMS_ITS | Encounter Summary ---
Author Organization [facility] Address [address] [facility] [address] [place] [address] Phone Care Team Providers Care Appraisal Coordinator Name Role Phone Yashira Mojica MD Primary Care Provi jani Encounter Details Date Type Department Care Team (Late st Contact Info) Description 10/07/2020 Procedure Pass OR Admitting Dept - Virtual Department [address] [place] [address] Social History Tobacco Use Types Packs/Day Years [...] on filedocumented in this encounter Care Teams Appraisal Coordinator Relationship Specialty Start Date End Date Yashira Mojica MD [address] [place] [address] PCP - General Family Medicine 02/04/20 documented as of this encounter Additional Source Comments The information contained in this document represents components of the legal health record. It is not the complete legal health record.[facility]
--- OUTSIDE RECORDS SUMMARY | 2025-03-25 20:24 | XMS_ITS | Encounter Summary ---
Author Organization [facility] Address [address] [place] [address] Phone Care Team Providers Care Ep Tech Name Role Phone Yashira Mojica MD Primary Care Provi jani Encounter Details Date Type Department Care Team (Late st Contact Info) Description 09/12/2020 Procedure Pass [facility], Ct Scan - [facility] [address] [place] [address] Social History Tobacco Use Types Packs/Day Years [...] on filedocumented in this encounter Care Teams Ep Tech Relationship Specialty Start Date End Date Yashira Mojica MD [address] [place] [address] PCP - General Family Medicine 02/04/20 documented as of this encounter Additional Source Comments The information contained in this document represents components of the legal health record. It is not the complete legal health record.[facility]
--- OUTSIDE RECORDS SUMMARY | 2025-03-25 20:24 | XMS_ITS | Data Portability ---
Author Organization [facility], [facility]ergy Address [address] [place] [address] Care Team Providers Care Vice President Of Compliance Name Role Phone AI MATTHEWS Primary Care [...] Farnaz Lenz MD, [facility], [place], [address], 15:47:45 Procedures None recorded. Surgeries None recorded. Imaging CT, neck, soft tissue, w/ contrast 2023 024 [facility] Radiology (Scheduling, Multiplte Sites), [address] [place], [address], 4 14:58:47 US, thyroid - please perform dedicated thyroid ultrasound 2023 024 [facility] Radiology (Scheduling, Multiplte Sites), [address] [place] [address], [address], 4 11:24:18 Medication Orders None recorded. Patient [...] thyro id No observ ation record ed. [facility] [address] [place], [address], 05/07/2024 09:10:25 04/30/20 24 04/30/2024 CT, neck, soft tissu e, w/ contr ast No observ ation record ed. [address], [address], 05/07/2024 09:10:26 06/01/19 25 06/01/2024 fine needl e aspir ation , ultra sound guide d, thyro id (PROC ) No observ ation record ed. [facility] (Intervention al Radiology) [address] [place] [address], [address], 06/05/2024 11:30:21 Result Notes None recorded. 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 2023 Neoplasm of uncertain behavior of thyroid gland; Note: Date Diagnosed: 09/15/2023 1:02 PM (D44.0) Not Available [facility] 4 03:29:14 Cervical lymphaden opathy 327184150 Active 2023 CHRIS TAYLOR MD [address] [facility] [place] [address], [place], [address] , [place] - [facility] [place] 4 16:53:50 Thyroid nodule 096953205 Active 2023 CHRIS TAYLOR MD [address] [place], [place] [address] [place] [address], [place], [address] , [place] - [facility] [place] 4 16:57:22 Papillary thyroid carcinoma 173346733 Active 2024 JAYSON FRANCO MD [address] [place] [address],[place] [address], [place], [address] , [place] - [facility] [place] 5 14:47:59 Dysphonia 49582215 Active 2024 JAYSON FRANCO MD [address] [place] [address],[place] [address], [place], [address] , [place] - [facility] [place] 5 12:18:37 Problem Notes None recorded. Procedures Surgical History Date Name Laterality Status Provider Name and Address Organization Details Recorded Time 07/03/2024 FOL_DP completed JAYSON FRANCO MD [address] [place], [place] [address] [place] [address], [place], [address], [place] - [facility] [place] 07/03/2024 12:15:49 03/21/2024 FFL_RE completed CHRIS TAYLOR MD [address] [place], [place] [address]on [place] [address], [place], [address], [place] - [facility] [place] 03/21/2024 16:53:43 Imaging Results None recorded. Procedure [...] Updated DateTime 07/03/2024 170.18 cm 37.6 kg/m2 547247.17 g Angie Hughes [place] [facility] 07/03/2024 11:42:18 Date Recorded Body height Body mass index (BMI) Body weight Provider Name and Address Organization Details Last Updated DateTime 03/21/2024 170.18 cm 39.2 kg/m2 695279.09 g Angie Hughes [place] [facility] 03/21/2024 16:30:19 Social History None [...] ICD10 Code Diagnosis IMO Codes Diagnosis Note [id number] CHRIS TAYLOR MD [facility] [address] [place] [address] 03/21/2024 16:20:19 03/21/2024 16:39:20 Cervical lymphadenopathy 016066471 R59.0 I don't palpate any enlarged lymph nodes. Perhaps they were reactive due to prior liposcutio n. Will order a CT neck with contrast to evaluate for any concerning adenopathy . Thyroid nodule 523940699 E04.1 I recommend a dedicated ultrasound which likely will need to be followed by an USGFNA. [id number] JAYSON FRANCO MD [facility] [address] [place] [address] 07/03/2024 11:33:41 07/03/2024 12:19:12 Papillary thyroid carcinoma 768118654 C73 12mm left thyroid nodule Dysphonia 67472311 R49.9 Health Concerns Section Related Observation LastModified by Organization Detai ls LastModified Time None Recorded Concern Status LastModified by Organization Details LastModified Time None Recorded Advance Directives Directive None Recorded Payers Insurance Date Sequence Insurance Name Policy Number Policy Yoder Covered Member ID Yoder Member ID Guarantor Name 2024 1 [facility] (MEDICAID HMO) [employer] Liliana Y Orr Gamez [id number] Liliana Y Orr Gamez 10/12/2023 1 [facility] (MEDICAID HMO) [employer] Liliana Orr Gamez [id number] Liliana Y Orr Gamez 10/12/2023 1 [place] Liliana Orr Gamez [id number] Liliana Y Orr Gamez 06/30/2024 1 [place] [facility] Liliana Y Orr Gamez [id number] Liliana Y Orr Gamez Notes Date Note [...] nodes are still enlarged. CHRIS TAYLOR MD [address] [place] [address], [place], [address], [place] - [facility] [place] 03/21/2024 17:01:02 07/03/2024 text/html ROS as noted in the HPI patient of Dr Velizft thyroid nodule 06/30/2023 ultrasound neck at [facility] thyroid lobe 8 x 11 x 10 mm nodule, TI RADS 5Left neck level 2 multiple atypical lymph nodes measuring 22 mm, 23 mm, 15 mmRight neck level 2 multiple lymph nodes largest 35 mm and 18 mm04/30/20[facility] thyroid 12 x 9 x 9 mm nodule TI RADS 512 CT [facility] post[facility] lymph node 14 mmLeft level 2A and 3 at the level of hyoid 15 mm lymph nodeRight level 2A lymph node 15 mmLeft lower pole thyroid nodule 1 cm06/01/2024 ultrasound-[facility] thyroid carcinoma Hx of liposuction to neck for gender affirmation JAYSON FRANCO MD [address] [facility],[place] [address], [place], [address], [place] - [facility] [place] 07/03/2024 12:19:13 OBGyn Episode No OBEpisode recorded.
--- OUTSIDE RECORDS SUMMARY | 2025-03-25 20:24 | XMS_ITS | Clinical Summary ---
Author Organization [facility] Address [address] [address] Phone Care Team Providers Care Motor Operator Name Role Phone Yashira Mojica MD Primary [...] 2024 , 03/19/2022, 03/18/2021, Additional history exists COVID-19 VACCINE ( - season) 2024 05/24/2024, 07/25/2020, 06/27/2020 SMOKING Hx and SMOKELESS TOBACCO SCREENING 06/27/2025 [...] on patient's age to complete this topic HIB VACCINES Aged Out No longer eligi ble based on patient's age to complete this topic MENINGOCOCCAL VACCINES (B) Aged Out N o longer eligible based on patient's age to complete this topic Medical Devices Implanted Type Area Riding Coach Device Identifier Shelf Expiration Date Model / Serial / Lot Implant Breast 755cc Smooth Round High Profile Extra - [id number] Implanted:Qty: 1 on 10/07/2020 by Dustin Moran MD at [facility] Right: Breast MENTOR JAMARCUS 07/18/2025 [id number] / [id number] / [id number] Implant Breast 755cc Smooth Round High Profile Extra - [id number] Implanted:Qty: 1 on 10/07/2020 by Dustin Moran MD at [facility] Left: Breast MENTOR JAMARCUS 07/18/2025 [id number] / / [id number] Insurance [address] [place] [address] [facility] C3 A[employer] [place] [address] [address] [place] [address] [address] [place] [address] [address] [place] [address] [address] [place] [address] [address] [place] [address] [address] [place] [address] [address] [place] [address] [address] [place] [address] 1 [place] [address] Advance Directives For more information, please contact: [phone] (9AM - 5PM [place], Tuesday-Tuesday) * Full Code (Latest Code Status on File) Date Activated Date Inactivated Comments 10/07/2020 7:12 AM Question Answer Comments Code Status Confirmed With: Other (specify below ) Code Discussion Comments: periop Care Teams Motor Operator Relationship Specialty Start Date End Date Yashira Mojica MD [address] [place] [address] PCP - General Family Medicine 02/04/20 Additional Source Comments The information contained in this document represents components of the legal health record. It is not the complete legal health record.[facility]
[2025-03-26 04:36] LABS: Syphilis Screen Nonreactive (Nonreactive)
[2025-03-26 04:45] LABS: ~HepC Num1 0.15 S/CO (0.00-0.79); ~Hepatitis C Antibody Nonreactive (Nonreactive)
== END 2025-03-25 16:18 | disposition home or self-care (01) ==
LOC: HO.HHCL 16:17
PROVIDERS: PCP Pediatrics; Visit Provider Advanced Practice Midwife
DX: Z11.3 Encounter for screening for infections with a predominantly sexual mode of transmission (principal); Z01.84 Encounter for antibody response examination
CPT/HCPCS: 36415; 86780; 86803

== ENCOUNTER 2025-04-09 16:01 | Outpatient (REF) | payer OTHER, SELFPAY ==
[2025-04-09 18:10] LABS: MANUAL DIFF FLAG NO
[2025-04-09 18:21] LABS: Hematocrit 45.0 % (42.0-52.0); Hemoglobin 15.3 g/dl (14.0-18.0); Imm Gran Abs Auto 0.03 X10*3/uL (0.00-0.03); Imm Gran Pct Auto 0.3 % (0.0-0.4); Lymphocytes Absolute Auto 3.8 X10*3/uL (1.2-4.9); Mean Corpuscular HGB Conc 34.0 g/dl (31.0-36.0); Mean Corpuscular Hemoglobin 28.7 pg (27.0-33.0); Mean Corpuscular Volume 84.4 fL (80.0-98.0); NRBC Abs Auto 0.000 X10*3/uL (0.0-0.012); NRBC Pct Auto 0.0 /100WBC (0.0-0.2); Platelet Count 231 X10*3/uL (160-400); Red Blood Count 5.33 X10*6/uL (4.60-5.80); White Blood Count 9.5 X10*3/uL (4.8-10.8)
[2025-04-09 18:31] LABS: Cholesterol 226 mg/dL (<200); HDL Cholesterol 42 mg/dL (>40); Triglycerides 196 mg/dL (<150)
[2025-04-09 18:41] LABS: Alanine Aminotransferase 65 U/L (0-40); Albumin Level 5.3 g/dL (3.5-5.0); Alkaline Phosphatase 110 U/L (39-117); Anion Gap 12 (12-20); Aspartate Amino Transferase 40 U/L (5-37); Blood Urea Nitrogen 12 mg/dL (9-16); Calcium 9.7 mg/dL (8.4-10.2); Carbon Dioxide 25 mmol/L (22-29); Chloride 106 mmol/L (96-108); Estimated Glomerular Filt Rate > 60; Potassium 3.5 mmol/L (3.3-5.1); Sodium 139 mmol/L (135-145); Total Protein 8.5 g/dL (6.5-8.0)
[2025-04-09 19:32] LABS: Reflex LDLD? No
[2025-04-09 19:37] LABS: Free T4 (Free Thyroxine) 1.04 ng/dL (0.71-1.85)
--- OUTSIDE RECORDS SUMMARY | 2025-04-09 22:46 | XMS_ITS | Encounter Summary ---
Author Organization [facility] Address [address] [facility] [address] [place] [address] Phone Care Team Providers Care Graphic Designer Name Role Phone Yashira Mojica MD Primary Care Provi jani Encounter Details Date Type Department Care Team (Late st Contact Info) Description 10/07/2020 Procedure Pass OR Admitting Dept - Virtual Department [address] [place] [address] Social History Tobacco Use Types Packs/Day Years [...] on filedocumented in this encounter Care Teams Graphic Designer Relationship Specialty Start Date End Date Yashira Mojica MD [address] [place] [address] PCP - General Family Medicine 02/04/20 documented as of this encounter Additional Source Comments The information contained in this document represents components of the legal health record. It is not the complete legal health record.[facility]
--- OUTSIDE RECORDS SUMMARY | 2025-04-09 22:46 | XMS_ITS | Data Portability ---
Author Organization [facility], [facility] Address [address] [place] [address] Care Team Providers Care Correctional Supply Supervisor Name Role Phone AI MATTHEWS Primary Care Provider [phone] Assessment Encounter Date Assessment Date Assessment LastModified [...] [facility], [place], [address], 15:47:45 Procedures None recorded. Surgeries None recorded. Imaging CT, neck, soft tissue, w/ contrast 2023 024 [facility] Radiology (Scheduling, Multiplte Sites), [address] [facility], [address], 4 14:58:47 US, thyroid - please perform dedicated thyroid ultrasound 2023 024 [facility] Radiology (Scheduling, Multiplte Sites), [address] [place] [address], [address], 4 11:24:18 Medication Orders None recorded. Patient [...] thyro id No observ ation record ed. [facility] [address] [place], [address], 05/07/2024 09:10:25 04/30/20 24 04/30/2024 CT, neck, soft tissu e, w/ contr ast No observ ation record ed. [address], [address], 05/07/2024 09:10:26 06/01/19 25 06/01/2024 fine needl e aspir ation , ultra sound guide d, thyro id (PROC ) No observ ation record ed. [facility] (Intervention al Radiology) [address] [place] [address], [address], 06/05/2024 11:30:21 Result Notes None recorded. Problems Name Problem SNOMED Code Status Onset Date Resolution Date Notes Provider Name and Address Organization Details Recorded Time Mass of neck 943627983 Active 2023 Localized swelling, mass and lump, neck; Note: Date Diagnosed: 09/15/2023 1:02 PM (R22.1) Not Available [facility] 08/02/202 4 03:29:14 Neck swelling 208409361 Active 2023 Localized swelling, mass and lump, neck; Note: Date Diagnosed: 09/15/2023 1:02 PM (R22.1) Not Available [facility] 4 03:29:14 Neoplasm of uncertain behavior of thyroid gland 59304295 Active 2023 Neoplasm of uncertain behavior of thyroid gland; Note: Date Diagnosed: 09/15/2023 1:02 PM (D44.0) Not Available [facility] 4 03:29:14 Cervical lymphaden opathy 295288201 Active 2023 CHRIS TAYLOR MD [address] [facility] [place] [address], [place], [address] , [place] - [facility] [place] 4 16:53:50 Thyroid nodule 241331396 Active 2023 CHRIS TAYLOR MD [address] [place], [place] [address] [place] [address], [place], [address] , [place] - [facility] [place] 4 16:57:22 Papillary thyroid carcinoma 257477403 Active 2024 JAYSON FRANCO MD [address] [place] [address],[place] [address], [place], [address] , [place] - [facility] [place] 5 14:47:59 Dysphonia 47321251 Active 2024 JAYSON FRANCO MD [address] [place] [address],[place] [address], [place], [address] , [place] - [facility] [place] 5 12:18:37 Problem Notes None recorded. Procedures Surgical History Date Name Laterality Status Provider Name and Address Organization Details Recorded Time 07/03/2024 FOL_DP completed JAYSON FRANCO MD [address] [place], [place] [address] [place] [address], [place], [address], [place] - [facility] [place] 07/03/2024 12:15:49 03/21/2024 FFL_RE completed CHRIS TAYLOR MD [address] [place], [place] [address]on [place] [address], [place], [address], [place] - [facility] [place] 03/21/2024 16:53:43 Imaging Results None recorded. Procedure [...] Updated DateTime 07/03/2024 170.18 cm 37.6 kg/m2 140873.17 g Angie Hughes [place] [facility] 07/03/2024 11:42:18 Date Recorded Body height Body mass index (BMI) Body weight Provider Name and Address Organization Details Last Updated DateTime 03/21/2024 170.18 cm 39.2 kg/m2 186548.09 g Angie Hughes [place] [facility] [...] ICD10 Code Diagnosis IMO Codes Diagnosis Note [id number] CHRIS TAYLOR MD [facility] [address] [place] [address] 03/21/2024 16:20:19 03/21/2024 16:39:20 Cervical lymphadenopathy 052473737 R59.0 I don't palpate any enlarged lymph nodes. Perhaps they were reactive due to prior liposcutio n. Will order a CT neck with contrast to evaluate for any concerning adenopathy . Thyroid nodule 506057479 E04.1 I recommend a dedicated ultrasound which likely will need to be followed by an USGFNA. [id number] JAYSON FRANCO MD [facility] [address] [place] [address] 07/03/2024 11:33:41 07/03/2024 12:19:12 Papillary thyroid carcinoma 537217754 C73 12mm left thyroid nodule Dysphonia 08225436 R49.9 Health Concerns Section Related Observation LastModified by Organization Detai ls LastModified Time None Recorded Concern Status LastModified by Organization Details LastModified Time None Recorded Advance Directives Directive None Recorded Payers Insurance Date Sequence Insurance Name Policy Number Policy Yoder Covered Member ID Yoder Member ID Guarantor Name 2024 1 [facility] PLAN (MEDICAID HMO) [employer] Liliana Y Orr Gamez [id number] Liliana Y Orr Gamez 10/12/2023 1 [facility] PL[facility] (MEDICAID HMO) [employer] Liliana Orr Gamez [id number] Liliana Y Orr Gamez 10/12/2023 1 [place] [facility] Liliana Orr Gamez [id number] Liliana Y Orr Gamez 06/30/2024 1 [place] [facility] Liliana Y Orr Gamez [id number] Liliana Y Orr Gamez Notes Date Note [...] nodes are still enlarged. CHRIS TAYLOR MD [address] [place] [address], [place], [address], [place] - [facility] [place] 03/21/2024 17:01:02 07/03/2024 text/html ROS as noted in the HPI patient of Dr Velizft thyroid nodule 06/30/2023 ultrasound neck at [facility] thyroid lobe 8 x 11 x 10 mm nodule, TI RADS 5Left neck level 2 multiple atypical lymph nodes measuring 22 mm, 23 mm, 15 mmRight neck level 2 multiple lymph nodes largest 35 mm and 18 mm04/30/20[facility] 12 x 9 x 9 mm nodule TI RADS 512 CT [facility] node 14 mmLeft level 2A and 3 at the level of hyoid 15 mm lymph nodeRight level 2A lymph node 15 mmLeft lower pole thyroid nodule 1 cm06/01/2024 ultrasound[facility] thyroid carcinoma Hx of liposuction to neck for gender affirmation JAYSON FRANCO MD 100 [facility],[place] [address], [place], [address], [place] - [facility] [place] 07/03/2024 12:19:13 OBGyn Episode No OBEpisode recorded.
--- OUTSIDE RECORDS SUMMARY | 2025-04-09 22:46 | XMS_ITS | Encounter Summary ---
Author Organization [facility] Address [address] [facility] [address] [place] [address] Phone Care Team Providers Care Aquacultural Worker Supervisor Name Role Phone Galina, Yashira Huerta MD Primary Care Provi jani Reason for Referral * MRI/CAT Scan - Closed Specialty Diagnoses / Procedures Referred By Contjulia t Referred To Contact Radiology Diagnoses Transgender Procedures CT Face CHG CT SCAN,MAXILLOFACIAL AREA,W/O CONTRAST CHG CT SCAN, FACE/JAW CONTRAST CHG CT SCANS FACE/JAW COMBO CHG CT SCAN,LIMITED/LOCALIZED F/U STUDY Jenifer Long MD Phone: tel: fax: [address] [address] Phone: tel: Referral ID Status Reason Start Date Expiration Date Visits Re quested Visits Authorized [id number] Closed 11/20/2020 02/18/2021 1 1 Encounter Details Date Type Department Care Team (Latest Contact Info) Description 09/12/2020 Transcribe Orders Virtual Department [address] [place] [address] Jenifer Long MD [address] [facility] [place] [address] Transgender (Primary Dx) Social History [...] Transgender documented in this encounter Care Teams Aquacultural Worker Supervisor Relationship Specialty Start Date End Date Yashira Mojica MD [address] [place] [address] PCP - General Family Medicine 02/04/20 documented as of this encounter Additional Source Comments The information contained in this document represents components of the legal health record. It is not the complete legal health record.[facility]
--- OUTSIDE RECORDS SUMMARY | 2025-04-09 22:46 | XMS_ITS | Clinical Summary ---
Author Organization [facility] Address [address] [address] Phone Care Team Providers Care Fourth Hand Name Role Phone Yashira Mojica MD Primary [...] this topic Medical Devices Implanted Type Area Wage Hand Device Identifier Shelf Expiration Date Model / Serial / Lot Implant Breast 755cc Smooth Round High Profile Extra - [id number] Implanted:Qty: 1 on 10/07/2020 by Dustin Moran MD at [facility] Right: Breast MENTOR JAMARCUS 07/18/2025 [id number] / [id number] / [id number] Implant Breast 755cc Smooth Round High Profile Extra - [id number] Implanted:Qty: 1 on 10/07/2020 by Dustin Moran MD at [facility] Left: Breast MENTOR JAMARCUS 07/18/2025 [id number] / / [id number] Insurance [address] [place] [address] [facility] C3 A[employer] [place] [address] [address] [place] [address] [address] [place] [address] [address] [place] [address] [address] [place] [address] [address] [place] [address] [address] [place] [address] [address] [place] [address] [address] [place] [address] 1 [place] [address] Advance Directives For more information, please contact: [phone] (9AM - 5PM [place], Tuesday-Tuesday) * Full Code (Latest Code Status on File) Date Activated Date Inactivated Comments 10/07/2020 7:12 AM Question Answer Comments Code Status Confirmed With: Other (specify below ) Code Discussion Comments: periop Care Teams Fourth Hand Relationship Specialty Start Date End Date Yashira Mojica MD [address] [place] [address] PCP - General Family Medicine 02/04/20 Additional Source Comments The information contained in this document represents components of the legal health record. It is not the complete legal health record.[facility]
--- OUTSIDE RECORDS SUMMARY | 2025-04-09 22:46 | XMS_ITS | Encounter Summary ---
Author Organization [facility] Address [address] [place] [phone] Phone Care Team Providers Care Sign Letterer Name Role Phone Yashira Mojica MD Primary Care Provi jani Encounter Details Date Type Department Care Team (Late st Contact Info) Description 09/12/2020 Procedure Pass [facility], Ct Scan - [address] [address] Social History Tobacco Use Types Packs/Day Years [...] on filedocumented in this encounter Care Teams Sign Letterer Relationship Specialty Start Date End Date Yashira Mojica MD [address] [place] [address] PCP - General Family Medicine 02/04/20 documented as of this encounter Additional Source Comments The information contained in this document represents components of the legal health record. It is not the complete legal health record.[facility]
[2025-04-11 19:18] LABS: HIV RNA PCR Qn Copies 234 copies/mL (NOT DETECTED); HIV RNA PCR Qn Log Copies 2.37 (NOT DETECTED)
== END 2025-04-09 16:02 | disposition home or self-care (01) ==
LOC: HO.HHCL 16:01
PROVIDERS: Advanced Practice Midwife; Internal Medicine; PCP Pediatrics; Visit Provider Pediatrics
DX: Z21 Asymptomatic human immunodeficiency virus [HIV] infection status (principal); C73 Malignant neoplasm of thyroid gland; F64.9 Gender identity disorder, unspecified; Z13.6 Encounter for screening for cardiovascular disorders
CPT/HCPCS: 36415; 80053; 80061; 82550; 82670; 84403; 84439; 84443; 85025; 86359; 86360; 87536

== ENCOUNTER 2025-04-28 16:20 | Emergency (ER) | payer OTHER, SELFPAY ==
--- NOTE | ~2025-04-28 | XR_ITS ---
CLINICAL HISTORY: chest pain 2 view chest x-ray Comparison: Chest x-ray from 01/17/2025 Findings: No consolidation, pneumothorax, or pleural effusion. Heart size is normal. Summation of multiple ribs and vertebrae; without definite acute fracture by chest radiographs. IMPRESSION: No consolidation. This document has been electronically signed by: Eric Schumacher MD on 04/28/2025 19:30:09
--- NOTE | 2025-04-28 16:21 | ECG_ITS ---
Test Reason : chest pain Blood Pressure : */* mmHG Vent. Rate : 119 BPM Atrial Rate : 119 BPM P-R Int : 152 ms QRS Dur : 78 ms QT Int : 316 ms P-R-T Axes : 50 22 54 degrees QTcB Int : 444 ms Sinus tachycardia Otherwise normal ECG When compared with ECG of 17-Jan-2025 17:02, No significant change was found Referred By: Christianne Dougherty Electronically Signed By: MEG RAMÍREZ
--- NOTE | 2025-04-28 16:31 | ED.GENADULT ---
HPI - General Adult General Chief complaint: Chest Pain Stated complaint: chest pain, arm pain Time Seen by Provider: 04/28/25 20:06 Source: patient Limitations: language barrier History of Present Illness ED Provider: Yvette Frank PA-C HPI narrative: 30-year-old trans male to female with a history of HIV, gender dysphoria, anxiety who presents with chest pain. Patient states she developed left anterior chest discomfort with the associated left upper back and left arm pain after moving a couch. Pain worse with movement and palpation of chest wall. No recent cough or cold symptoms, diaphoresis, abdominal pain, nausea. Related Data Previous Rx's ?Medication ?Instructions ?Recorded famotidine 20 mg tablet 20 mg PO BID 90 days #180 tabs 04/23/24 lidocaine 5 % topical patch 1 patch topical DAILY #15 ea 01/17/25 naproxen 500 mg tablet 500 mg PO BID PRN pain #10 tabs 01/17/25 ketorolac 10 mg tablet 10 mg PO Q6H PRN pain #20 tabs 04/28/25 methocarbamol 750 mg tablet 1,500 mg (2 x 750 mg) PO Q8H PRN 04/28/25 pain, severe #30 tabs prednisone 20 mg tablet 40 mg (2 x 20 mg) PO DAILY #8 tabs 04/28/25 Allergies Allergy/AdvReac Type Severity Reaction Status Date / Time No Known Allergies Allergy Verified 04/28/25 16:34 Review of Systems Review of Systems: Yes all other systems are reviewed and are negative Constitutional: Constitutional: Denies fatigue and Denies fever(s) Cardiovascular: Cardiovascular: Reports chest pain and Denies dyspnea Respiratory: Respiratory: Denies cough and Denies dyspnea Gastrointestinal: Gastrointestinal: Denies abdominal pain, Denies nausea and Denies vomiting Musculoskeletal: Musculoskeletal: Reports back pain, Reports arthralgias and Denies joint swelling Endocrine: Endocrine: Denies fatigue PMFSH Past Medical History Attestation statement: The following information was validated with the patient. 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 Alcohol intake: current Alcohol intake frequency: a few times a week Alcohol type: beer Substance Use Type: Marijuana Current occupational status: student Physical Exam ED Vital Signs: Vital Signs - 24 hr 04/28/25 16:33 04/28/25 19:39 Temperature 96.4 F L 98.2 F Pulse Rate 123 H 96 Respiratory Rate 22 H 20 Blood Pressure 170/73 H 139/83 Pulse Oximetry 98 99 Oxygen Delivery Method Room Air Room Air BMI result Body Mass Index 36.7 Const Other: Alert Orientation/consciousness: patient oriented x3 Chest Other: Pain reproducible with palpation of anterior chest wall no deformity Resp Effort & Inspection: normal respiratory effort Cardio Other: Normal peripheral perfusion Skin Other: Warm dry no rash Neuro General: patient oriented x3, gait normal, no focal motor deficits and CN's II-XI intact bilaterally Psych Other: Cooperative Course Course Course Narrative: Rapid medical examination performed in triage by Christianne Dougherty PA-C: Patient is a 30 year old female presenting to the emergency department with nausea and vomiting with chest pain. Patient states that she was moving something heavy and began to have sudden onset chest + back pain with nausea and vomiting. Detailed physical exam and review of systems are deferred to the despatch clerk. EKG, labs, imaging, swabs ordered. Patient placed back in the waiting room pending room availability and results. Medications Administered Discontinued Medications Generic Name Dose Route Start Last Admin Trade Name Caydenq PRN Reason Stop Dose Admin Ketorolac Tromethamine 15 mg 04/28/25 20:45 04/28/25 20:58 Ketorolac Tromethamine 15 Mg/Ml Vial IM 04/28/25 20:46 15 mg ONCE ONE Administration Methocarbamol 1,500 mg 04/28/25 20:45 04/28/25 20:58 Methocarbamol 750 Mg Tablet PO 04/28/25 20:46 1,500 mg ONCE ONE Administration Ondansetron HCl 4 mg 04/28/25 16:32 04/28/25 19:38 Ondansetron Odt 4 Mg Tab.Rapdis TRANSLINGU 04/28/25 16:33 Not Given ONCE ONE Prednisone 40 mg 04/28/25 20:45 04/28/25 20:58 Prednisone 20 Mg Tablet PO 04/28/25 20:46 40 mg ONCE ONE Administration Medical Decision Making Medical Decision Making [facility] Narrative: 30-year-old trans male to female with a history of HIV, gender dysphoria, anxiety who presents with chest pain. Patient states she developed left anterior chest discomfort with the associated left upper back and left arm pain after moving a couch. Pain worse with movement and palpation of chest wall. No recent cough or cold symptoms, diaphoresis, abdominal pain, nausea. Problem: HIV, anxiety History: Per patient I have considered the following differential diagnoses: ACS, chest wall strain, costochondritis, dissection, viral syndrome, pneumonia anxiety Plan: ACS was considered, however the patient does have not any risk factors for coronary artery disease, screening labs including troponin EKG and chest x-ray obtained, his heart score is 0. She has chest wall pain, it is reproducible she has a mechanism of injury, we will send with the anti-inflammatory and muscle relaxant. No infectious symptoms to suggest viral syndrome versus pneumonia, and chest x-ray is clear. I do feel her anxiety is playing a role, he readily admits he has panic attacks. I have independently reviewed the following tests: Labs: No leukocytosis, not anemic, no electrolyte abnormality, troponin less than 2.7, viral panel neg EKG: Sinus tachycardia, rate of 119, no ischemic changes, no ectopy no change from prior study December of this year, QTC 444 Chest x-ray:Findings: No consolidation, pneumothorax, or pleural effusion. Heart size is normal. Summation of multiple ribs and vertebrae; without definite acute fracture by chest radiographs. IMPRESSION: No consolidation. Differential Diagnosis Differential Diagnoses: The differential diagnosis associated with the presentation includes See [facility] Admission/Observation Consideration of admission/observation: Escalation of care including admission/observation considered Not applicable Lab Data [facility] Lab Attestation statement: I reviewed the patient's lab results. 04/28/25 17:01 04/28/25 17:01 Labs: Lab Results 04/28/25 Range/Units 17:01 WBC 10.2 (4.8-10.8) X10*3/uL RBC 5.59 (4.60-5.80) X10*6/uL Hgb 16.1 (14.0-18.0) g/dl Hct 46.9 (42.0-52.0) % MCV 83.9 (80.0-98.0) fL MCH 28.8 (27.0-33.0) pg MCHC 34.3 (31.0-36.0) g/dl RDW 13.2 (11.0-16.0) % Plt Count 231 (160-400) X10*3/uL MPV 10.0 (9.4-12.4) fL Immature Gran % (Auto) 0.4 (0.0-0.4) % Neut % (Auto) 58.6 (45-73) % Lymph % (Auto) 35.0 (20-40) % Braxton % (Auto) 5.4 (2-11) % Eos % (Auto) 0.3 (0-4) % Baso % (Auto) 0.3 (0-2) % Lymph # (Auto) 3.6 (1.2-4.9) X10*3/uL Braxton # (Auto) 0.6 (0.1-1.2) X10*3/uL Eos # (Auto) 0.0 (0.0-0.4) X10*3/uL Baso # (Auto) 0.0 (0.0-0.2) X10*3/uL Abs Immat Gran (auto) 0.04 H (0.00-0.03) X10*3/uL Absolute Neuts (auto) 6.0 (2.0-8.3) x10*3/uL Absolute Nucleated RBC 0.000 (0.0-0.012) X10*3/uL Nucleated RBC % (auto) 0.0 (0.0-0.2) /100WBC Sodium 142 (135-145) mmol/L Potassium 3.8 (3.3-5.1) mmol/L Chloride 110 H (96-108) mmol/L Carbon Dioxide 20 L (22-29) mmol/L Anion Gap 16 (12-20) BUN 15 (9-16) mg/dL Creatinine 1.05 (0.5-1.4) mg/dL Estim Creat Clear Calc 119.5 Estimated GFR > 60 Random Glucose 98 (60-115) mg/dL Calcium 9.9 (8.4-10.2) mg/dL Magnesium 2.1 (1.6-2.6) mg/dL Total Bilirubin 0.4 (0.0-1.0) mg/dL AST 33 (5-37) U/L ALT 55 H (0-40) U/L Alkaline Phosphatase 111 (39-117) U/L Troponin I High Sens < 2.7 (<3.5-35.0) ng/L Total Protein 8.3 H (6.5-8.0) g/dL Albumin 5.3 H (3.5-5.0) g/dL Influenza Type A (PCR) NEGATIVE (Negative) Influenza Type B (PCR) NEGATIVE (Negative) RSV RNA Qual (PCR) NEGATIVE (Negative) SARS-CoV-2 RNA (RT-PCR) NEGATIVE (Negative) Independent Interpretation I performed an independent interpretation of an: EKG Radiology Impression Discussion of test interpretation with radiology: I have reviewed the radiologist's reading. Discharge Plan Discharge Clinical Impression: Chest wall pain Patient Disposition: Home, Self-Care Instructions: Chest Wall Pain (ED) Additional Instructions: Your discomfort is consistent with chest wall pain, it is not related to your heart today. See home care instructions. With your screening labs, a cardiac enzyme was obtained and it was negative. There were no concerning changes on the EKG in the chest x-ray is clear. Use the ketorolac as directed this is an anti-inflammatory take it with food. Do not use other NSAIDs while taking this medication. Take the steroid as directed this is a 2nd anti-inflammatory. Take the methocarbamol as needed, this is a muscle relaxant. This medication will cause drowsiness do not drive or operate machinery while taking the medication. Follow up with your primary care provider for your ongoing chronic back discomfort. Prescriptions: New methocarbamol 750 mg tablet 1,500 mg PO Q8H PRN (Reason: pain, severe) Qty: 30 0RF ketorolac 10 mg tablet 10 mg PO Q6H PRN (Reason: pain) Qty: 20 0RF Rx Instructions: maximum total duration of 5 days from all oral, intranasal, or parenteral formulations prednisone 20 mg tablet 40 mg PO DAILY Qty: 8 0RF No Action naproxen 500 mg tablet 500 mg PO BID PRN (Reason: pain) Qty: 10 0RF lidocaine 5 % adhesive patch,medicated 1 patch topical DAILY Qty: 15 0RF Rx Instructions: leave on most painful area for up to 12 hrs famotidine 20 mg tablet 20 mg PO BID 90 Days Qty: 180 0RF Stand Alone Forms: Work/School Release Interventions: ED Discharge Assessment Last Done: 04/28/25 21:14 Discharge Date/Time: 04/28/25 21:15 Print Language: Kinyarwanda
[2025-04-28 16:33] VITALS: BP 170/73; PULSE 123; RESP 22; TEMP 35.8; O2SAT 98; BMI 36.7
--- OUTSIDE RECORDS SUMMARY | 2025-04-28 17:05 | XMS_ITS | Encounter Summary ---
Author Organization [facility] Address [address] [facility] [address] [place] [phone] Phone Care Team Providers Care Shipping Supervisor Name Role Phone [place], Yashira Huerta MD Primary Care Provi jani Reason for Referral * MRI/CAT Scan - Closed Specialty Diagnoses / Procedures Referred By Contjulia t Referred To Contact Radiology Diagnoses Transgender Procedures CT Face CHG CT SCAN,MAXILLOFACIAL AREA,W/O CONTRAST CHG CT SCAN, FACE/JAW CONTRAST CHG CT SCANS FACE/JAW COMBO CHG CT SCAN,LIMITED/LOCALIZED F/U STUDY Jenifer Long MD Phone: tel: fax: [address] [phone] Phone: tel: Referral ID Status Reason Start Date Expiration Date Visits Re quested Visits Authorized [id number] Closed 11/20/2020 02/18/2021 1 1 Encounter Details Date Type Department Care Team (Latest Contact Info) Description 09/12/2020 Transcribe Orders Virtual Department [address] [place] [phone] Jenifer Long MD [address] [facility] [place] [address] Transgender (Primary Dx) Social History [...] Transgender documented in this encounter Care Teams Shipping Supervisor Relationship Specialty Start Date End Date Yashira Mojica MD [address] [place] [phone] PCP - General Family Medicine 02/04/20 documented as of this encounter Additional Source Comments The information contained in this document represents components of the legal health record. It is not the complete legal health record.[facility]
--- OUTSIDE RECORDS SUMMARY | 2025-04-28 17:05 | XMS_ITS | Clinical Summary ---
Author Organization [facility] Address [address] [place] [address] Care Team Providers Care Hose Sprayer Name Role Phone Unavailable Primary Care Provider [...]
--- OUTSIDE RECORDS SUMMARY | 2025-04-28 17:05 | XMS_ITS | Encounter Summary ---
Author Organization [facility] Address [address] [place] [address] Phone Care Team Providers Care Fitting Room Attendant Name Role Phone Yashira Mojica MD Primary Care Provi jani Encounter Details Date Type Department Care Team (Late st Contact Info) Description 09/12/2020 Procedure Pass [facility], Ct Scan - [facility] [address] [place] [address] Social History Tobacco Use Types Packs/Day Years [...] on filedocumented in this encounter Care Teams Fitting Room Attendant Relationship Specialty Start Date End Date Yashira Mojica MD [address] [place] [address] PCP - General Family Medicine 02/04/20 documented as of this encounter Additional Source Comments The information contained in this document represents components of the legal health record. It is not the complete legal health record.[facility]
--- OUTSIDE RECORDS SUMMARY | 2025-04-28 17:05 | XMS_ITS | Encounter Summary ---
Author Organization [facility] Address [address] [facility] [address] [place] [address] Phone Care Team Providers Care Money Examiner Name Role Phone Yashira Mojica MD Primary Care Provi jani Encounter Details Date Type Department Care Team (Late st Contact Info) Description 10/07/2020 Procedure Pass [place] Admitting Dept - Virtual Department [address] [place] [address] Social History Tobacco Use Types Packs/Day Years [...] on filedocumented in this encounter Care Teams Money Examiner Relationship Specialty Start Date End Date Yashira Mojica MD [address] [place] [address] PCP - General Family Medicine 02/04/20 documented as of this encounter Additional Source Comments The information contained in this document represents components of the legal health record. It is not the complete legal health record.[facility]
--- OUTSIDE RECORDS SUMMARY | 2025-04-28 17:05 | XMS_ITS | Clinical Summary ---
Author Organization [facility] Address [address] [address] Phone Care Team Providers Care Solar Sales Representative Name Role Phone Yashira Mojica MD Primary [...] this topic Medical Devices Implanted Type Area Assistant Professor Device Identifier Shelf Expiration Date Model / Serial / Lot Implant Breast 755cc Smooth Round High Profile Extra - [id number] Implanted:Qty: 1 on 10/07/2020 by Dustin Moran MD at [facility] Right: Breast [employer] JAM[employer] 07/18/2025 [id number] / [id number] / [id number] Implant Breast 755cc Smooth Round High Profile Extra - [id number] Implanted:Qty: 1 on 10/07/2020 by Dustin Moran MD at [facility] Left: Breast [employer] JAM[employer]US 07/18/2025 [id number] / / [id number] Insurance [address] [place] [address] [facility] [employer] [place] [id number] [place] [address] [address] [place] [id number] [address] [place] [address] [address] [place] [address] [address] [place] [address] [address] [place] [address] [address] [place] [address] [address] [place] [address] [address] [place] [address] Advance Directives For more information, please contact: [phone] (9AM - 5PM [place], Tuesday-Tuesday) * Full Code (Latest Code Status on File) Date Activated Date Inactivated Comments 10/07/2020 7:12 AM Question Answer Comments Code Status Confirmed With: Other (specify below ) Code Discussion Comments: periop Care Teams Solar Sales Representative Relationship Specialty Start Date End Date Yashira Mojica MD [address] [place] [phone] PCP - General Family Medicine 02/04/20 Additional Source Comments The information contained in this document represents components of the legal health record. It is not the complete legal health record.[facility]
--- OUTSIDE RECORDS SUMMARY | 2025-04-28 17:05 | XMS_ITS | Data Portability ---
Author Organization [facility], Allergy Address [address] [place] [phone] Care Team Providers Care Forming Operator Name Role Phone AI MATTHEWS Primary [...] Farnaz Lenz MD, [facility], [place], [address], 15:47:45 Procedures None recorded. Surgeries None recorded. Imaging CT, neck, soft tissue, w/ contrast 2023 024 [facility] Radiology (Scheduling, Multiplte Sites), [address] [facility] [place], [address], 4 14:58:47 US, thyroid - please perform dedicated thyroid ultrasound 2023 024 [facility] Radiology (Scheduling, Multiplte Sites), [address] [place] [address], [address], 4 11:24:18 Medication Orders None recorded. Patient [...] thyro id No observ ation record ed. [facility] [address] [place], [address], 05/07/2024 09:10:25 04/30/20 24 04/30/2024 CT, neck, soft tissu e, w/ contr ast No observ ation record ed. [address], [address], 05/07/2024 09:10:26 06/01/19 25 06/01/2024 fine needl e aspir ation , ultra sound guide d, thyro id (PROC ) No observ ation record ed. [facility] (Intervention al Radiology) [address] [place] [address], [address], 06/05/2024 11:30:21 Result Notes None recorded. 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 Procedures Surgical History Date Name Laterality Status Provider Name and Address Organization Details Recorded Time 07/03/2024 FOL_DP completed JAYSON FRANCO MD [address] [place], [place] [address] [address], [place], [address], [place] - [facility] 07/03/2024 12:15:49 03/21/2024 FFL_RE completed CHRIS TAYLOR MD [address] [place], [place] [address] [address], [place], [address], [place] - [facility] 03/21/2024 16:53:43 Imaging Results None recorded. Procedure [...] Updated DateTime 07/03/2024 170.18 cm 37.6 kg/m2 152022.17 g Angie Hughes [place] [facility] 07/03/2024 11:42:18 Date Recorded Body height Body mass index (BMI) Body weight Provider Name and Address Organization Details Last Updated DateTime 03/21/2024 170.18 cm 39.2 kg/m2 718044.09 g Angie Hughes [place] [facility] 03/21/2024 16:30:19 Social History None recorded. Functional Status None recorded. Mental Status None recorded. Family History Nothing Reported. Medical History No medical history recorded. Gynecological HistoryNo gynecological history recorded. Obstetrics History GPAL:G 0 P 0 0 0 0 Past Encounters Encounter ID Performer Location Encounter Start Date Encounter Closed Date Diagnosis/Indication Diagnosis SNOMED-CT Code Diagnosis ICD10 Code Diagnosis IMO Codes Diagnosis Note [id number] CHRIS TAYLOR MD [facility] [address] [place] [address] 03/21/2024 16:20:19 03/21/2024 16:39:20 Cervical lymphadenopathy 455279960 R59.0 I don't palpate any enlarged lymph nodes. Perhaps they were reactive due to prior liposcutio n. Will order a CT neck with contrast to evaluate for any concerning adenopathy . Thyroid nodule 427922831 E04.1 I recommend a dedicated ultrasound which likely will need to be followed by an USGFNA. [id number] JAYSON FRANCO MD [facility] [address] [place] [address] 07/03/2024 11:33:41 07/03/2024 12:19:12 Papillary thyroid carcinoma 233369033 C73 12mm left thyroid nodule Dysphonia 65775815 R49.9 Health Concerns Section Related Observation LastModified by Organization Detai ls LastModified Time None Recorded Concern Status LastModified by Organization Details LastModified Time None Recorded Advance Directives Directive None Recorded Payers Insurance Date Sequence Insurance Name Policy Number Policy Yoder Covered Member ID Yoder Member ID Guarantor Name [id number] 1 [facility] PLAN (MEDICAID HMO) [employer] Liliana Y [employer]r [employer] [id number] Liliana [employer] 10/12/2023 1 [facility] PLAN (MEDICAID HMO) [employer] Liliana Or[employer] [id number] Liliana Y [employer]r [employer]z 10/12/2023 1 [place] [facility] Liliana Orr Gamez [id number] Liliana Y Orr [employer]z 06/30/2024 1 [place] [facility] Liliana Y Orr [employer]z [id number] Liliana [employer] Notes Date Note [...] nodes are still enlarged. CHRIS TAYLOR MD [address] [place] [address], [place], [address], [place] - [facility] 03/21/2024 17:01:02 07/03/2024 text/html ROS as noted in the HPI patient of Dr Velizft thyroid nodule 06/30/2023 ultrasound neck at [facility] thyroid lobe 8 x 11 x 10 mm nodule, TI RADS 5Left neck level 2 multiple atypical lymph nodes measuring 22 mm, 23 mm, 15 mmRight neck level 2 multiple lymph nodes largest 35 mm and 18 mm04/30/[facility] [place] thyroid 12 x 9 x 9 mm nodule TI RADS 512 CT [facility] 14 mmLeft level 2A and 3 at the level of hyoid 15 mm lymph nodeRight level 2A lymph node 15 mmLeft lower pole thyroid nodule 1 cm06/01/2024 ultrasound[facility] carcinoma Hx of liposuction to neck for gender affirmation JAYSON FRANCO MD [address] [facility],[place] [address], [place], [address], [place] [facility] 07/03/2024 12:19:13 OBGyn Episode No OBEpisode recorded.
[2025-04-28 17:07] LABS: Hematocrit 46.9 % (42.0-52.0); Hemoglobin 16.1 g/dl (14.0-18.0); Imm Gran Abs Auto 0.04 X10*3/uL (0.00-0.03); Imm Gran Pct Auto 0.4 % (0.0-0.4); Lymphocytes Absolute Auto 3.6 X10*3/uL (1.2-4.9); MANUAL DIFF FLAG NO; Mean Corpuscular HGB Conc 34.3 g/dl (31.0-36.0); Mean Corpuscular Hemoglobin 28.8 pg (27.0-33.0); Mean Corpuscular Volume 83.9 fL (80.0-98.0); NRBC Abs Auto 0.000 X10*3/uL (0.0-0.012); NRBC Pct Auto 0.0 /100WBC (0.0-0.2); Platelet Count 231 X10*3/uL (160-400); Red Blood Count 5.59 X10*6/uL (4.60-5.80); White Blood Count 10.2 X10*3/uL (4.8-10.8)
[2025-04-28 17:23] LABS: Alanine Aminotransferase 55 U/L (0-40); Albumin Level 5.3 g/dL (3.5-5.0); Alkaline Phosphatase 111 U/L (39-117); Anion Gap 16 (12-20); Aspartate Amino Transferase 33 U/L (5-37); Blood Urea Nitrogen 15 mg/dL (9-16); Calcium 9.9 mg/dL (8.4-10.2); Carbon Dioxide 20 mmol/L (22-29); Chloride 110 mmol/L (96-108); Creatinine Clr Calc Pharmacy 119.5; Estimated Glomerular Filt Rate > 60; Magnesium 2.1 mg/dL (1.6-2.6); Potassium 3.8 mmol/L (3.3-5.1); Sodium 142 mmol/L (135-145); Total Protein 8.3 g/dL (6.5-8.0)
[2025-04-28 17:33] LABS: Troponin-I High Sensitivity < 2.7 ng/L (<3.5-35.0)
[2025-04-28 17:46] LABS: Resp Syncy Virus RNA Qual PCR NEGATIVE (Negative); SARS COV2 PCR INHOUSE NEGATIVE (Negative)
[2025-04-28 19:39] VITALS: BP 139/83; PULSE 96; RESP 20; TEMP 36.8; O2SAT 99
[2025-04-28 21:14] VITALS: BP 139/83; PULSE 96; RESP 20; TEMP 36.8; O2SAT 99
== END 2025-04-28 21:15 | disposition home or self-care (01) ==
PROVIDERS: Physician Assistant Medical; Emergency Provider Emergency Medicine; PCP Pediatrics
DX: R07.89 Other chest pain (principal); R00.0 Tachycardia, unspecified; M79.602 Pain in left arm; Z03.818 Encounter for observation for suspected exposure to other biological agents ruled out; F64.9 Gender identity disorder, unspecified; F41.9 Anxiety disorder, unspecified
CPT/HCPCS: 71046; 80053; 83735; 84484; 85025; 87637; 93005; 96372; 99284; 99285; J1885

== ENCOUNTER → 2025-04-28 16:21 | Outpatient (BNV) | payer OTHER, SELFPAY | PROVIDERS: Emergency Provider Emergency Medicine; PCP Pediatrics; Visit Provider Internal Medicine | DX: R00.0 Tachycardia, unspecified (principal) | CPT/HCPCS: 93010 ==

== ENCOUNTER → 2025-04-28 16:32 | Outpatient (BNV) | payer OTHER, SELFPAY | PROVIDERS: PCP Pediatrics; Visit Provider Radiology Neuroradiology | DX: R07.9 Chest pain, unspecified (principal) | CPT/HCPCS: 71046 ==